=== PATIENT | male | born 1965 | race Caucasian/White ===

== ENCOUNTER 2016-11-21 20:03 | Emergency (ER) | payer OTHER ==
[~2016-11-21] VITALS: Ht 167.6 cm; Wt 105.0 kg
[~2016-11-21 20:03] MED LIST: BENADRYL50 MG PO; DAILY VITE1 EAC1 PO; DOXYCYCLINE HY100 MG PO; EPINEPHRIN0.15 MG/0. IM; FOLIC ACID1 MG PO; LISINOPRIL2.5 MG PO; ONE DAILY1 EAC3 PO; PRILOSEC OTC20 MG PO; Thiamine,Vitamin B1 PO
[2016-11-22 00:42] LABS: EOSINOPHIL (%) 2.3 % (0-5); EOSINOPHIL COUNT 0.1 K/uL (0-0.3); HEMATOCRIT 35.9 % (38.0-50.0); IMMATURE GRANULOCYTE (%) 0.2 % (0.0-0.7); IMMATURE GRANULOCYTE COUNT 0.1 K/uL; LYMPHOCYTE COUNT 1.9 K/uL (1.0-2.8); MCH 36.4 PG (29.0-34.0); MCHC 35.9 G/DL (30.0-36.0); MCV 101.4 FL (86-99); MONOCYTE (%) 9.3 % (3-12); MONOCYTE COUNT 0.5 K/uL (0-0.8); NEUTROPHIL (%) 47.8 % (45-76); NEUTROPHIL COUNT 2.3 K/uL (1.8-6.4); PLATELET COUNT 78 K/uL (156-360); RBC DIS.WIDTH-CV 13.6 % (11.8-14.6); RBC DIS.WIDTH-SD 49.2 % (39-53); RED BLOOD COUNT 3.54 M/uL (4.00-5.50); WHITE BLOOD COUNT 4.8 K/uL (4.1-10.2)
[2016-11-22 00:50] LABS: CHLORIDE 97 mEq/L (99-109); SODIUM 129 mEq/L (136-147)
[2016-11-22 00:52] LABS: GLUCOSE 105 mg/dL (70-99)
[2016-11-22 00:53] LABS: ANION GAP 13 MEQ/L (2-14)
[2016-11-22 00:54] LABS: TOTAL BILIRUBIN 3.3 mg/dL (0.0-1.0)
[2016-11-22 00:55] LABS: SERUM ETHYL ALCOHOL 298 mg/dL
[2016-11-22 00:56] LABS: ALKALINE PHOSPHATASE 95 IU/L (3-129); GFR ESTIMATE (CALCULATED) > 59 mL/min/
[2016-11-22 00:57] LABS: UREA NITROGEN (BUN) 7 mg/dL (9-23)
[2016-11-22] MEDS ORDERED: KEFLEX500 MG PO (05:57)
[2016-11-22 07:14] VITALS: BP 102/57
== END 2016-11-22 07:30 | disposition home or self-care (01) ==
LOC: EME 20:03
PROVIDERS: Emergency Medicine
DX: S01.01XA Laceration without foreign body of scalp, initial encounter (principal); S00.81XA Abrasion of other part of head, initial encounter; W01.10XA Fall on same level from slipping, tripping and stumbling with subsequent striking against unspecified object, initial encounter; Y92.513 Shop (commercial) as the place of occurrence of the external cause; F10.129 Alcohol abuse with intoxication, unspecified; Y90.8 Blood alcohol level of 240 mg/100 ml or more; I10 Essential (primary) hypertension; Z91.5 Personal history of self-harm; Z59.0 Homelessness; Z91.018 Allergy to other foods; Z23 Encounter for immunization
CPT/HCPCS: 70450; 72125; 80053; 85025; 99281; 99284; G0480; J7030

== ENCOUNTER 2016-12-15 03:04 | Inpatient (IN) | payer OTHER ==
[~2016-12-15] VITALS: Ht 167.6 cm; Wt 98.6 kg
[~2016-12-15 03:04] MED LIST changes: +KEFLEX500 MG PO
[2016-12-15 03:28] LABS: HEMATOCRIT 38.6 % (38.0-50.0); MCH 35.9 PG (29.0-34.0); MCHC 34.5 G/DL (30.0-36.0); MCV 104.3 FL (86-99); MEAN PLAT.VOLUME 9.8 uM^3 (9.0-12.4); PLATELET COUNT 90 K/uL (156-360); RBC DIS.WIDTH-CV 14.3 % (11.8-14.6); RBC DIS.WIDTH-SD 53.1 % (39-53); WHITE BLOOD COUNT 7.6 K/uL (4.1-10.2)
[2016-12-15 03:38] LABS: CHLORIDE 105 mEq/L (99-109); POTASSIUM 4.3 mEq/L (3.7-5.4); SODIUM 138 mEq/L (136-147)
[2016-12-15 03:40] LABS: GLUCOSE 128 mg/dL (70-99)
[2016-12-15 03:41] LABS: ANION GAP 9 MEQ/L (2-14)
[2016-12-15 03:42] LABS: TOTAL BILIRUBIN 3.7 mg/dL (0.0-1.0)
[2016-12-15 03:43] LABS: ALKALINE PHOSPHATASE 134 IU/L (3-129)
[2016-12-15 03:44] LABS: GFR ESTIMATE (CALCULATED) > 59 mL/min/
[2016-12-15 03:45] LABS: UREA NITROGEN (BUN) 14 mg/dL (9-23)
[2016-12-15 03:48] LABS: LIPASE 69 U/L (1.0-51.0)
[2016-12-15 03:59] LABS: TROP-I INTERPRETATION NEGATIVE; TROPONIN-I 0.02 ng/mL (0.0-0.30)
[2016-12-15 05:46] LABS: TROP-I INTERPRETATION NEGATIVE; TROPONIN-I 0.02 ng/mL (0.0-0.30)
[2016-12-15 06:10] LABS: ADD MIUA? YES; BILIRUBIN NEGATIVE; BLOOD NEGATIVE; COLOR AMBER ((YELLOW)); GLUCOSE (STRIP) NEGATIVE; KETONES NEGATIVE; LEUKOCYTES NEGATIVE; NITRITE NEGATIVE; PROTEIN (STRIP) NEGATIVE; SPECIFIC GRAVITY 1.039 (1.000-1.030)
[2016-12-15 06:15] LABS: BACTERIA RARE /HPF; EPITHELIAL CELLS NONE SEEN /HPF; MUCUS TRACE /LPF; RED BLOOD CELLS 0-5 /HPF (0-5); UCUL ADDED? NO; WHITE BLOOD CELLS 0-5 /HPF (0-5)
[2016-12-15 08:17] LABS: INTER. NORMALIZED RATIO 2.1; PROTHROMBIN TIME 22.3 (9.2-11.2); PTT 27.3 (25-32)
[2016-12-15] MEDS ORDERED: PREDNISONE20 MG PO (10:09)
[2016-12-15] MEDS ORDERED: PROVENTIL HFA6.7 GM IH (10:09)
[2016-12-15] MEDS ORDERED: ZITHROMAX Z-PA250 MG PO (10:09)
[2016-12-15 20:04] VITALS: BP 154/97
[2016-12-16] VITALS: BP 132/60; BP 150/76
[2016-12-16 06:42] LABS: HEMATOCRIT 35.7 % (38.0-50.0); MCH 36.8 PG (29.0-34.0); PLATELET COUNT 70 K/uL (156-360); RBC DIS.WIDTH-CV 14.7 % (11.8-14.6); RBC DIS.WIDTH-SD 56.4 % (39-53)
[2016-12-16 06:50] LABS: WHITE BLOOD COUNT 2.4 K/uL (4.1-10.2)
[2016-12-16 07:02] LABS: ALKALINE PHOSPHATASE 67 IU/L (3-129); ANION GAP 7 MEQ/L (2-14); CHLORIDE 105 MEQ/L (99-109); DIRECT BILIRUBIN 1.3 mg/dL (0.0-0.3); GFR ESTIMATE (CALCULATED) > 59 mL/min/; GLUCOSE 129 mg/dL (70-99); MAGNESIUM 1.5 mg/dl (1.3-2.7); SAMPLE HEMOLYSIS CHECK 0; SAMPLE ICTERIC CHECK 1; SAMPLE LIPEMIA CHECK 0; SODIUM 136 MEQ/L (136-147); TOTAL BILIRUBIN 4.4 MG/DL (0.0-1.0); UREA NITROGEN (BUN) 14 mg/dL (9-23)
[2016-12-16 07:48] LABS: INTER. NORMALIZED RATIO 2.3; PROTHROMBIN TIME 24.1 (9.2-11.2)
[2016-12-16 07:54] VITALS: BP 164/92
[2016-12-16] MEDS ORDERED: THIAMINE HCL100 MG PO (09:41)
[2016-12-16] MEDS ORDERED: CIPRO500 MG PO (09:41)
[2016-12-16] MEDS ORDERED: KRISTALOSE20 GM PO (09:41)
[2016-12-16] MEDS ORDERED: FLAGYL500 MG PO (09:41)
[2016-12-16] MEDS ORDERED: ULTRAM50 MG PO (09:41)
[2016-12-16] MEDS ORDERED: FOLIC ACID1 MG PO (09:41)
[2016-12-16] MEDS ORDERED: OMEPRAZOLE40 M1 PO (09:49)
== END 2016-12-16 15:23 | disposition left against medical advice (07) | DRG 445 ==
LOC: EME 03:04 → EDOF 13:37 → 5EAST 19:17
PROVIDERS: Emergency Medicine; Internal Medicine; Surgery
DX: K80.20 Calculus of gallbladder without cholecystitis without obstruction (principal); K29.80 Duodenitis without bleeding; K27.9 Peptic ulcer, site unspecified, unspecified as acute or chronic, without hemorrhage or perforation; D69.59 Other secondary thrombocytopenia; K86.2 Cyst of pancreas; D68.8 Other specified coagulation defects; K76.6 Portal hypertension; F10.20 Alcohol dependence, uncomplicated; K70.30 Alcoholic cirrhosis of liver without ascites; K70.40 Alcoholic hepatic failure without coma; I10 Essential (primary) hypertension; F32.9 Major depressive disorder, single episode, unspecified; Z91.5 Personal history of self-harm; Z59.0 Homelessness; Z87.891 Personal history of nicotine dependence
CPT/HCPCS: 71020; 74177; 74181; 76705; 78227; 80053; 81003; 82140; 82248; 83690; 83735; 84100; 84484; 85027; 85610; 85730; 87040; 93005; 99281; 99285; A9537; C9113; J0295; J1650; J2060; J2805; J3411; J3430; J7030; J7042; J7050

== ENCOUNTER 2017-02-21 15:06 | Inpatient (IN) | payer OTHER ==
[~2017-02-21] VITALS: Ht 167.6 cm; Wt 104.4 kg
[~2017-02-21 15:06] MED LIST changes: +CIPRO500 MG PO; +FLAGYL500 MG PO; +KRISTALOSE20 GM PO; +OMEPRAZOLE40 M1 PO; +PREDNISONE20 MG PO; +PROVENTIL HFA6.7 GM IH; +THIAMINE HCL100 MG PO; +ULTRAM50 MG PO; +ZITHROMAX Z-PA250 MG PO
[2017-02-21 16:23] LABS: EOSINOPHIL (%) 0 % (0-5); HEMATOCRIT 38.7 % (38.0-50.0); IMMATURE GRANULOCYTE (%) 0.8 % (0.0-0.7); INSTRUMENT ABS NEUTROPHIL CT 3.2 K/uL; LYMPHOCYTE COUNT 0.2 K/uL (1.0-2.8); MCH 36.1 PG (29.0-34.0); MCHC 34.4 G/DL (30.0-36.0); MCV 105.2 FL (86-99); MONOCYTE COUNT 0.2 K/uL (0-0.8); NEUTROPHIL (%) 88.9 % (45-76); NEUTROPHIL COUNT 3.2 K/uL (1.8-6.4); NRBC (%) 0.8 /100 WBC (0-0); RBC DIS.WIDTH-CV 14.3 % (11.8-14.6); RBC DIS.WIDTH-SD 55.5 % (39-53); RED BLOOD COUNT 3.68 M/uL (4.00-5.50); WHITE BLOOD COUNT 3.6 K/uL (4.1-10.2)
[2017-02-21 16:38] LABS: CHLORIDE 102 mEq/L (99-109); POTASSIUM 3.7 mEq/L (3.7-5.4); SODIUM 135 mEq/L (136-147)
[2017-02-21 16:39] LABS: GLUCOSE 110 mg/dL (70-99)
[2017-02-21 16:41] LABS: ANION GAP 13 MEQ/L (2-14)
[2017-02-21 16:43] LABS: GFR ESTIMATE (CALCULATED) > 59 mL/min/
[2017-02-21 16:44] LABS: UREA NITROGEN (BUN) 16 mg/dL (9-23)
[2017-02-21 16:47] LABS: TROP-I INTERPRETATION NEGATIVE; TROPONIN-I 0.06 ng/mL (0.0-0.30)
[2017-02-21 17:04] LABS: LIPASE 56 U/L (1.0-51.0)
[2017-02-21 17:12] LABS: HEMATOLOGY COMMENT 1 SN; IMM.PLATELET FRACTION 2.7 (1-7); PLAT.SUFFICIENCY DECREASED; PLATELET COUNT 43 K/uL (156-360)
[2017-02-21 19:09] LABS: INTER. NORMALIZED RATIO 2.6; PROTHROMBIN TIME 26.8 (9.2-11.2); PTT 27.5 (25-32)
[2017-02-21 19:15] LABS: TOTAL BILIRUBIN 5.6 mg/dL (0.0-1.0)
[2017-02-21 19:16] LABS: ALKALINE PHOSPHATASE 74 IU/L (3-129)
[2017-02-21 19:19] LABS: DIRECT BILIRUBIN 1.7 mg/dL (0.0-0.3)
[2017-02-21 21:11] VITALS: BP 121/77
[2017-02-21 23:16] LABS: TROP-I INTERPRETATION NEGATIVE
[2017-02-21 23:52] VITALS: BP 91/49
[2017-02-22 03:43] VITALS: BP 113/56
[2017-02-22 06:24] LABS: EOSINOPHIL (%) 0 % (0-5); HEMATOCRIT 36.3 % (38.0-50.0); IMMATURE GRANULOCYTE (%) 1.2 % (0.0-0.7); IMMATURE GRANULOCYTE COUNT 0.1 K/uL; INSTRUMENT ABS NEUTROPHIL CT 6.5 K/uL; LYMPHOCYTE COUNT 0.4 K/uL (1.0-2.8); MCH 36.4 PG (29.0-34.0); MCHC 33.9 G/DL (30.0-36.0); MCV 107.4 FL (86-99); MONOCYTE COUNT 0.5 K/uL (0-0.8); NEUTROPHIL (%) 86.2 % (45-76); NEUTROPHIL COUNT 6.5 K/uL (1.8-6.4); RBC DIS.WIDTH-CV 14.6 % (11.8-14.6); RBC DIS.WIDTH-SD 57.6 % (39-53); RED BLOOD COUNT 3.38 M/uL (4.00-5.50); TROP-I INTERPRETATION NEGATIVE; TROPONIN-I 0.08 ng/mL (0.0-0.30)
[2017-02-22 06:44] LABS: WHITE BLOOD COUNT 7.5 K/uL (4.1-10.2)
[2017-02-22 06:45] LABS: ALKALINE PHOSPHATASE 44 IU/L (3-129); ANION GAP 8 MEQ/L (2-14); CHLORIDE 104 MEQ/L (99-109); GFR ESTIMATE (CALCULATED) > 59 mL/min/; GLUCOSE 87 mg/dL (70-99); POTASSIUM 3.3 MEQ/L (3.7-5.4); SAMPLE HEMOLYSIS CHECK 0; SAMPLE ICTERIC CHECK 1; SAMPLE LIPEMIA CHECK 0; SODIUM 136 MEQ/L (136-147); TOTAL BILIRUBIN 4.8 MG/DL (0.0-1.0); UREA NITROGEN (BUN) 16 mg/dL (9-23)
[2017-02-22 07:56] VITALS: BP 115/67
[2017-02-22 07:59] LABS: INTERNAL CONTROL VALID? YES
[2017-02-22 08:26] LABS: IMM.PLATELET FRACTION 2.4 (1-7); MEAN PLAT.VOLUME 9.5 uM^3 (9.0-12.4); PLATELET COUNT 34 K/uL (156-360)
[2017-02-22 10:08] LABS: C DIFF TOXIN NEGATIVE (NEGATIVE); PROBE CHECK PASS; SPECIMEN PROCESSING CONTROL PASS
[2017-02-22 10:55] VITALS: BP 111/63
[2017-02-22 16:11] VITALS: BP 107/57
[2017-02-22 19:00] VITALS: BP 110/76
[2017-02-23 04:01] VITALS: BP 109/63
[2017-02-23 08:23] VITALS: BP 127/70
[2017-02-23 08:48] LABS: ANION GAP 6 MEQ/L (2-14); CHLORIDE 108 MEQ/L (99-109); GFR ESTIMATE (CALCULATED) > 59 mL/min/; GLUCOSE 83 mg/dL (70-99); POTASSIUM 3.4 MEQ/L (3.7-5.4); SAMPLE HEMOLYSIS CHECK 0; SAMPLE ICTERIC CHECK 1; SAMPLE LIPEMIA CHECK 0; SODIUM 137 MEQ/L (136-147); UREA NITROGEN (BUN) 18 mg/dL (9-23)
[2017-02-23 11:51] VITALS: BP 120/66
[2017-02-23 15:46] VITALS: BP 124/72
[2017-02-23 18:26] VITALS: BP 135/85
[2017-02-23 18:49] LABS: METH RESISTANT S AUREUS PCR POSITIVE (NEGATIVE)
[2017-02-23 18:57] LABS: PROBE CHECK PASS
[2017-02-23 20:16] VITALS: BP 138/80
[2017-02-24] VITALS: BP 143/90
[2017-02-24 04:03] VITALS: BP 149/78
[2017-02-24 08:37] VITALS: BP 130/82
[2017-02-24 12:46] VITALS: BP 148/85
[2017-02-24 16:21] VITALS: BP 113/74
[2017-02-24 19:33] VITALS: BP 150/86
[2017-02-25 03:52] VITALS: BP 157/88
[2017-02-25 08:27] VITALS: BP 161/83
[2017-02-25 11:42] VITALS: BP 161/84
[2017-02-25 16:41] VITALS: BP 171/92
[2017-02-25 20:39] VITALS: BP 177/84
[2017-02-26 00:10] VITALS: BP 133/77
[2017-02-26 04:05] VITALS: BP 169/81
[2017-02-26 08:38] LABS: HEMATOCRIT 44.3 % (38.0-50.0); MCH 36.6 PG (29.0-34.0); MCHC 34.1 G/DL (30.0-36.0); MCV 107.3 FL (86-99); MEAN PLAT.VOLUME 10.2 uM^3 (9.0-12.4); RBC DIS.WIDTH-CV 14.4 % (11.8-14.6); RBC DIS.WIDTH-SD 55.9 % (39-53)
[2017-02-26 08:45] VITALS: BP 167/94
[2017-02-26 08:48] LABS: PLATELET COUNT 70 K/uL (156-360); RED BLOOD COUNT 4.13 M/uL (4.00-5.50); WHITE BLOOD COUNT 4.9 K/uL (4.1-10.2)
[2017-02-26 09:03] LABS: ANION GAP 8 MEQ/L (2-14); CHLORIDE 101 MEQ/L (99-109); GFR ESTIMATE (CALCULATED) > 59 mL/min/; GLUCOSE 84 mg/dL (70-99); SAMPLE HEMOLYSIS CHECK 1; SAMPLE ICTERIC CHECK 1; SAMPLE LIPEMIA CHECK 0; SODIUM 135 MEQ/L (136-147); UREA NITROGEN (BUN) 12 mg/dL (9-23)
[2017-02-26 12:00] VITALS: BP 165/85
[2017-02-26] MEDS ORDERED: TRIAMCINOLONE A15 GM TP (12:23)
[2017-02-26] MEDS ORDERED: PREDNISONE10 MG PO (12:24)
== END 2017-02-26 14:22 | disposition home or self-care (01) | DRG 194 ==
LOC: EME 15:06 → EDOF 17:58 → 5WEST 17:58 → EDOF 17:58 → 5WEST 20:54 → 5SOUTH 02-22 10:33 → 5WEST 02-22 10:33 → 5SOUTH 02-23 17:55
PROVIDERS: Emergency Medicine; Hospitalist; Internal Medicine; Nurse Practitioner Adult Health; Nurse Practitioner Family
DX: J18.9 Pneumonia, unspecified organism (principal); F10.10 Alcohol abuse, uncomplicated; M79.89 Other specified soft tissue disorders; K76.6 Portal hypertension; K70.30 Alcoholic cirrhosis of liver without ascites; Z59.0 Homelessness; I10 Essential (primary) hypertension; Z86.19 Personal history of other infectious and parasitic diseases; Z87.891 Personal history of nicotine dependence; Z80.1 Family history of malignant neoplasm of trachea, bronchus and lung; E66.9 Obesity, unspecified; Z68.37 Body mass index [BMI] 37.0-37.9, adult; Z22.322 Carrier or suspected carrier of Methicillin resistant Staphylococcus aureus; L71.9 Rosacea, unspecified
CPT/HCPCS: 71010; 71020; 76882; 80048; 80053; 80076; 82140; 83690; 84484; 85025; 85027; 85610; 85730; 87040; 87070; 87177; 87205; 87449; 87493; 87641; 93005; 93971; 94640; 94760; 94799; 99202; 99281; 99285; G0378; J0456; J0696; J2060; J2543; J3411; J3475; J7030; J7050; J7512; S0028

== ENCOUNTER 2017-02-26 22:46 | Observation (INO) | payer OTHER ==
[~2017-02-26] VITALS: Ht 167.6 cm; Wt 105.3 kg
[~2017-02-26 22:46] MED LIST changes: +PREDNISONE10 MG PO; +TRIAMCINOLONE A15 GM TP
[2017-02-26 23:31] LABS: HEMATOCRIT 41.1 % (38.0-50.0); MCH 36.4 PG (29.0-34.0); MCHC 34.1 G/DL (30.0-36.0); MCV 106.8 FL (86-99); MEAN PLAT.VOLUME 10.4 uM^3 (9.0-12.4); PLATELET COUNT 73 K/uL (156-360); RBC DIS.WIDTH-CV 14.2 % (11.8-14.6); RBC DIS.WIDTH-SD 55.7 % (39-53); RED BLOOD COUNT 3.85 M/uL (4.00-5.50); WHITE BLOOD COUNT 4.7 K/uL (4.1-10.2)
[2017-02-26 23:49] LABS: CHLORIDE 102 mEq/L (99-109); POTASSIUM 3.7 mEq/L (3.7-5.4); SODIUM 134 mEq/L (136-147)
[2017-02-26 23:50] LABS: GLUCOSE 80 mg/dL (70-99)
[2017-02-26 23:52] LABS: ANION GAP 11 MEQ/L (2-14)
[2017-02-26 23:54] LABS: GFR ESTIMATE (CALCULATED) > 59 mL/min/
[2017-02-26 23:55] LABS: TROP-I INTERPRETATION NEGATIVE; TROPONIN-I < 0.01 ng/mL (0.0-0.30); UREA NITROGEN (BUN) 9 mg/dL (9-23)
[2017-02-27 03:33] LABS: ALKALINE PHOSPHATASE 126 IU/L (3-129); DIRECT BILIRUBIN 1.5 mg/dL (0.0-0.3); TOTAL BILIRUBIN 3.4 MG/DL (0.0-1.0)
[2017-02-27 03:34] LABS: LIPASE 90 U/L (1.0-51.0)
[2017-02-27 05:41] LABS: INTER. NORMALIZED RATIO 2.4; PROTHROMBIN TIME 25.1 (9.2-11.2); PTT 29.5 (25-32)
[2017-02-27 07:45] VITALS: BP 169/91
[2017-02-27 11:37] VITALS: BP 158/75
[2017-02-27 17:11] VITALS: BP 167/96
[2017-02-27 21:00] VITALS: BP 148/77
[2017-02-28 00:44] VITALS: BP 155/90
[2017-02-28 03:50] VITALS: BP 164/80
[2017-02-28 05:40] LABS: ALKALINE PHOSPHATASE 68 IU/L (3-129); DIRECT BILIRUBIN 1.2 mg/dL (0.0-0.3); TOTAL BILIRUBIN 3.6 MG/DL (0.0-1.0)
[2017-02-28 08:10] VITALS: BP 174/92
[2017-02-28 09:50] LABS: AHBS INDEX 0; HEPATITIS B SURFACE ANTIBODY Nonreactive
[2017-02-28 09:51] LABS: ANTI-HEPATITIS B CORE (IGM) Nonreactive; HBC IgM INDEX 0.13
[2017-02-28 09:54] LABS: HPCA INDEX 5.45
[2017-02-28 12:21] VITALS: BP 173/68
[2017-02-28] MEDS ORDERED: Thiamine,Vitamin B1 PO (12:43)
[2017-02-28] MEDS ORDERED: TRIAMCINOLONE A15 G2 TP (12:43)
[2017-02-28] MEDS ORDERED: FOLIC ACID1 MG PO (12:43)
[2017-02-28] MEDS ORDERED: AMLODIPINE BESYL5 MG PO (12:43)
[2017-02-28 14:56] VITALS: BP 154/85
== END 2017-02-28 14:08 | disposition home or self-care (01) ==
LOC: EME 22:46 → 5WEST 02-27 06:06 → EDOF 02-27 06:06 → 5WEST 02-27 07:36
PROVIDERS: Internal Medicine Gastroenterology; Internal Medicine Hematology & Oncology; Surgery
DX: K80.20 Calculus of gallbladder without cholecystitis without obstruction (principal); K70.30 Alcoholic cirrhosis of liver without ascites; R16.0 Hepatomegaly, not elsewhere classified; R10.13 Epigastric pain; D69.6 Thrombocytopenia, unspecified; Z59.0 Homelessness; F10.10 Alcohol abuse, uncomplicated; R79.89 Other specified abnormal findings of blood chemistry
CPT/HCPCS: 71020; 74177; 76705; 80048 91; 80076; 82105 90; 83690; 84484; 85027; 85610; 85730; 86705; 86706; 86803; 93005; 99281; 99285; G0378; J7030

== ENCOUNTER 2017-03-09 16:49 | Emergency (ER) | payer OTHER ==
[~2017-03-09] VITALS: Ht 167.6 cm; Wt 101.0 kg
[~2017-03-09 16:49] MED LIST changes: +AMLODIPINE BESYL5 MG PO; +TRIAMCINOLONE A15 G2 TP
[2017-03-09 17:36] LABS: MCH 36.1 PG (29.0-34.0); MCHC 34.6 G/DL (30.0-36.0); MCV 104.2 FL (86-99); PLATELET COUNT 76 K/uL (156-360); RBC DIS.WIDTH-CV 13.2 % (11.8-14.6); RBC DIS.WIDTH-SD 50.8 % (39-53); RED BLOOD COUNT 3.55 M/uL (4.00-5.50)
[2017-03-09 17:54] LABS: CHLORIDE 105 mEq/L (99-109); SODIUM 138 mEq/L (136-147)
[2017-03-09 17:55] LABS: ADD MIUA? YES; BILIRUBIN NEGATIVE; BLOOD SMALL; COLOR STRAW ((YELLOW)); GLUCOSE (STRIP) NEGATIVE; KETONES NEGATIVE; LEUKOCYTES NEGATIVE; NITRITE NEGATIVE; PROTEIN (STRIP) NEGATIVE; SPECIFIC GRAVITY 1.004 (1.000-1.030); UROBILINOGEN 0.2 MG/DL (0.2-1.0)
[2017-03-09 17:57] LABS: GLUCOSE 91 mg/dL (70-99)
[2017-03-09 17:58] LABS: BACTERIA RARE /HPF; EPITHELIAL CELLS RARE /HPF; MUCUS NONE SEEN /LPF; RED BLOOD CELLS 0-5 /HPF (0-5); UCUL ADDED? NO; WHITE BLOOD CELLS 0-5 /HPF (0-5)
[2017-03-09 17:58] LABS: ANION GAP 12 MEQ/L (2-14); TOTAL BILIRUBIN 3.7 mg/dL (0.0-1.0)
[2017-03-09 18:00] LABS: ALKALINE PHOSPHATASE 104 IU/L (3-129); GFR ESTIMATE (CALCULATED) > 59 mL/min/
[2017-03-09 18:01] LABS: UREA NITROGEN (BUN) 7 mg/dL (9-23)
[2017-03-09 18:02] LABS: DIRECT BILIRUBIN 1.2 mg/dL (0.0-0.3)
[2017-03-09 18:04] LABS: LIPASE 65 U/L (1.0-51.0)
[2017-03-09 20:25] VITALS: BP 147/90
== END 2017-03-09 20:26 | disposition home or self-care (01) ==
LOC: EME 16:49
PROVIDERS: Emergency Medicine
DX: K80.20 Calculus of gallbladder without cholecystitis without obstruction (principal); K74.60 Unspecified cirrhosis of liver; I10 Essential (primary) hypertension
CPT/HCPCS: 71020; 71275; 74176; 80048; 80076; 81003; 83605; 83690; 85027; 85379; 87040; 99281; 99284; J2270; J2405; J7030

== ENCOUNTER 2017-03-14 02:44 | Emergency (ER) | payer OTHER ==
[~2017-03-14] VITALS: Ht 167.6 cm; Wt 105.9 kg
[2017-03-14 06:19] VITALS: BP 94/45
== END 2017-03-14 04:30 | disposition home or self-care (01) ==
LOC: EME 02:44
PROC: 3E0234Z Introduction of Serum, Toxoid and Vaccine into Muscle, Percutaneous Approach (ICD-10-PCS; principal; 2017-03-14)
DX: S00.01XA Abrasion of scalp, initial encounter (principal); S09.90XA Unspecified injury of head, initial encounter; F10.129 Alcohol abuse with intoxication, unspecified; Y00.XXXA Assault by blunt object, initial encounter; W18.30XA Fall on same level, unspecified, initial encounter; Y07.9 Unspecified perpetrator of maltreatment and neglect; Z23 Encounter for immunization; K74.60 Unspecified cirrhosis of liver; I10 Essential (primary) hypertension; Z59.0 Homelessness
CPT/HCPCS: 70450; 99281; 99284

== ENCOUNTER 2017-03-15 23:33 | Emergency (ER) | payer OTHER ==
[~2017-03-15] VITALS: Ht 167.6 cm; Wt 99.1 kg
[2017-03-16 00:31] LABS: MCH 37.2 PG (29.0-34.0); MCHC 35.4 G/DL (30.0-36.0); MCV 105.1 FL (86-99); RBC DIS.WIDTH-CV 14.2 % (11.8-14.6); RBC DIS.WIDTH-SD 54.6 % (39-53); RED BLOOD COUNT 3.52 M/uL (4.00-5.50); WHITE BLOOD COUNT 3.1 K/uL (4.1-10.2)
[2017-03-16 00:40] LABS: CHLORIDE 106 mEq/L (99-109); POTASSIUM 3.5 mEq/L (3.7-5.4); SODIUM 142 mEq/L (136-147)
[2017-03-16 00:42] LABS: GLUCOSE 140 mg/dL (70-99)
[2017-03-16 00:43] LABS: ANION GAP 12 MEQ/L (2-14)
[2017-03-16 00:45] LABS: SERUM ETHYL ALCOHOL 374 mg/dL
[2017-03-16 00:46] LABS: GFR ESTIMATE (CALCULATED) > 59 mL/min/
[2017-03-16 00:47] LABS: UREA NITROGEN (BUN) 6 mg/dL (9-23)
[2017-03-16 01:22] LABS: IMM.PLATELET FRACTION 1.8 (1-7); MEAN PLAT.VOLUME 9.7 uM^3 (9.0-12.4); PLATELET COUNT 49 K/uL (156-360)
[2017-03-16 01:23] LABS: PLAT.SUFFICIENCY VERY DECREASED
[2017-03-16 12:05] VITALS: BP 125/81
== END 2017-03-16 12:10 | disposition home or self-care (01) ==
LOC: EME → EDBD 23:33 → EME 23:33
PROVIDERS: Emergency Medicine
DX: F10.229 Alcohol dependence with intoxication, unspecified (principal); Y90.8 Blood alcohol level of 240 mg/100 ml or more; R45.851 Suicidal ideations; F32.9 Major depressive disorder, single episode, unspecified; I10 Essential (primary) hypertension; F41.9 Anxiety disorder, unspecified; K70.30 Alcoholic cirrhosis of liver without ascites; K70.40 Alcoholic hepatic failure without coma; Z86.14 Personal history of Methicillin resistant Staphylococcus aureus infection; Z59.0 Homelessness
CPT/HCPCS: 80048; 85027; 90839; 99281; 99285; G0480

== ENCOUNTER 2017-03-16 22:58 | Inpatient (IN) | payer OTHER ==
[~2017-03-16] VITALS: Ht 167.6 cm; Wt 96.9 kg
[2017-03-16 23:41] LABS: HEMATOCRIT 36.5 % (38.0-50.0); MCH 36.3 PG (29.0-34.0); MCHC 34.5 G/DL (30.0-36.0); MCV 105.2 FL (86-99); RBC DIS.WIDTH-CV 14.2 % (11.8-14.6); RBC DIS.WIDTH-SD 54.4 % (39-53); RED BLOOD COUNT 3.47 M/uL (4.00-5.50); WHITE BLOOD COUNT 3.3 K/uL (4.1-10.2)
[2017-03-16 23:57] LABS: CHLORIDE 107 mEq/L (99-109); POTASSIUM 3.6 mEq/L (3.7-5.4); SODIUM 140 mEq/L (136-147)
[2017-03-17] LABS: ANION GAP 9 MEQ/L (2-14); GLUCOSE 102 mg/dL (70-99)
[2017-03-17 00:01] LABS: TOTAL BILIRUBIN 2.8 mg/dL (0.0-1.0)
[2017-03-17 00:02] LABS: SERUM ETHYL ALCOHOL 362 mg/dL
[2017-03-17 00:03] LABS: ALKALINE PHOSPHATASE 138 IU/L (3-129); GFR ESTIMATE (CALCULATED) > 59 mL/min/
[2017-03-17 00:04] LABS: UREA NITROGEN (BUN) 7 mg/dL (9-23)
[2017-03-17 00:41] LABS: MEAN PLAT.VOLUME 9.7 uM^3 (9.0-12.4); PLAT.SUFFICIENCY VERY DECREASED; PLATELET COUNT 40 K/uL (156-360)
[2017-03-17 02:28] LABS: ADD MIUA? NO; BILIRUBIN NEGATIVE; BLOOD NEGATIVE; COLOR YELLOW ((YELLOW)); GLUCOSE (STRIP) NEGATIVE; KETONES NEGATIVE; LEUKOCYTES NEGATIVE; NITRITE NEGATIVE; PROTEIN (STRIP) NEGATIVE; SPECIFIC GRAVITY 1.004 (1.000-1.030); UCUL ADDED? NO
[2017-03-17 02:50] LABS: AMPHETAMINE NEGATIVE (500 ng/mL); BARBITURATES NEGATIVE (200 ng/mL); BENZODIAZEPINES NEGATIVE (150 ng/mL); COCAINE NEGATIVE (150 ng/mL); INTERNAL CONTROLS VALID? YES; METHADONE NEGATIVE (200 ng/mL); METHAMPHETAMINE NEGATIVE (500 ng/mL); OPIATES (MORPHINE) NEGATIVE (100 ng/mL); OXYCODONE NEGATIVE (100 ng/mL); PHENCYCLIDINE NEGATIVE (25 ng/mL); PROPOXYPHENE NEGATIVE (300 ng/mL); THC CANNABINOIDS NEGATIVE (50 ng/mL); TRICYCLIC ANTIDEPRESSANTS NEGATIVE (300 ng/mL)
[2017-03-17 14:52] VITALS: BP 164/84
[2017-03-17 15:36] VITALS: BP 164/80
[2017-03-17 18:35] VITALS: BP 145/82
[2017-03-18 07:46] VITALS: BP 165/90
[2017-03-18 15:22] VITALS: BP 161/99
[2017-03-19 07:29] VITALS: BP 148/72
[2017-03-19 15:35] VITALS: BP 169/91
[2017-03-19 21:19] VITALS: BP 141/84
[2017-03-20 07:17] VITALS: BP 140/88
[2017-03-20 15:27] VITALS: BP 158/94
[2017-03-21 07:42] VITALS: BP 140/76
[2017-03-21 15:15] VITALS: BP 138/78
[2017-03-22 07:50] VITALS: BP 149/77
[2017-03-22 15:35] VITALS: BP 150/57
[2017-03-23 08:27] VITALS: BP 151/79
[2017-03-23] MEDS ORDERED: ESCITALOPRAM OX20 MG PO (10:54)
[2017-03-23] MEDS ORDERED: HYDROCHLOROTHIA25 MG PO (10:54)
== END 2017-03-23 12:44 | DRG 881 ==
LOC: EME 22:58 → EDOF 03-17 12:40 → 1WEST 03-17 12:40
PROVIDERS: Emergency Medicine
DX: F43.21 Adjustment disorder with depressed mood (principal); F60.7 Dependent personality disorder; F41.1 Generalized anxiety disorder; F10.129 Alcohol abuse with intoxication, unspecified; R16.0 Hepatomegaly, not elsewhere classified; D69.6 Thrombocytopenia, unspecified; R45.851 Suicidal ideations; Y90.9 Presence of alcohol in blood, level not specified; R63.4 Abnormal weight loss; K74.60 Unspecified cirrhosis of liver; Z59.0 Homelessness; I10 Essential (primary) hypertension; K80.20 Calculus of gallbladder without cholecystitis without obstruction
CPT/HCPCS: 80053; 81003; 85027; 90837; 90839; 97150 GO; 97166 GO; 99281; 99285; G0480

== ENCOUNTER 2017-04-06 22:04 | Inpatient (IN) | payer OTHER ==
[~2017-04-06] VITALS: Ht 167.6 cm; Wt 103.1 kg
[~2017-04-06 22:04] MED LIST changes: +ESCITALOPRAM OX20 MG PO; +HYDROCHLOROTHIA25 MG PO
[2017-04-06 22:50] LABS: HEMATOCRIT 36.6 % (38.0-50.0); MCH 36.1 PG (29.0-34.0); MCV 103.1 FL (86-99); RBC DIS.WIDTH-CV 13.7 % (11.8-14.6); RBC DIS.WIDTH-SD 52.4 % (39-53); RED BLOOD COUNT 3.55 M/uL (4.00-5.50); WHITE BLOOD COUNT 4.1 K/uL (4.1-10.2)
[2017-04-06 22:57] LABS: CHLORIDE 95 mEq/L (99-109); POTASSIUM 3.6 mEq/L (3.7-5.4); SODIUM 128 mEq/L (136-147)
[2017-04-06 22:59] LABS: GLUCOSE 100 mg/dL (70-99)
[2017-04-06 23:00] LABS: ANION GAP 10 MEQ/L (2-14)
[2017-04-06 23:02] LABS: SERUM ETHYL ALCOHOL 198 mg/dL
[2017-04-06 23:03] LABS: GFR ESTIMATE (CALCULATED) > 59 mL/min/
[2017-04-06 23:04] LABS: UREA NITROGEN (BUN) 11 mg/dL (9-23)
[2017-04-06 23:49] LABS: TOTAL BILIRUBIN 2.8 mg/dL (0.0-1.0)
[2017-04-06 23:50] LABS: ALKALINE PHOSPHATASE 108 IU/L (3-129)
[2017-04-06 23:52] LABS: DIRECT BILIRUBIN 1.3 mg/dL (0.0-0.3)
[2017-04-06 23:54] LABS: LIPASE 99 U/L (1.0-51.0)
[2017-04-06] MEDS ORDERED: THIAMINE HCL100 MG PO (23:59)
[2017-04-06] MEDS ORDERED: LIBRIUM25 MG PO (23:59)
[2017-04-07 00:01] LABS: MEAN PLAT.VOLUME 9.5 uM^3 (9.0-12.4); PLAT.SUFFICIENCY DECREASED; PLATELET COUNT 83 K/uL (156-360)
[2017-04-07 01:01] LABS: BASE EXCESS 2.7 mEq/L (-3 to +3); BICARBONATE 27.9 mEq/L (22-26); CARBOXY HGB 2.8 % (0-5); METHEMOGLOBIN 0.8 % (0-1.5); PCO2 44 mm Hg (35-45); PO2 64 mm Hg (80-100); pH 7.41 (7.35-7.45)
[2017-04-07 01:02] LABS: COMMENTS - BLOOD GASES C+; DEVICE NC; O2 FLOW 2 L/MIN; SITE LR; TOTAL RESP RATE 16 resp/min
[2017-04-07] MEDS ORDERED: METHOCARBAMOL750 MG PO (04:53)
[2017-04-07] MEDS ORDERED: AMLODIPINE BESYL5 MG PO (04:54)
[2017-04-07 05:51] VITALS: BP 142/87
[2017-04-07 06:50] LABS: TROP-I INTERPRETATION NEGATIVE; TROPONIN-I 0.01 ng/mL (0.0-0.30)
[2017-04-07 08:11] VITALS: BP 149/87
[2017-04-07 11:15] VITALS: BP 168/89
[2017-04-07 11:38] LABS: ADD MIUA? NO; BILIRUBIN NEGATIVE; BLOOD NEGATIVE; COLOR YELLOW ((YELLOW)); GLUCOSE (STRIP) NEGATIVE; KETONES NEGATIVE; LEUKOCYTES NEGATIVE; NITRITE NEGATIVE; PROTEIN (STRIP) NEGATIVE; UCUL ADDED? NO
[2017-04-07 12:01] LABS: METH RESISTANT S AUREUS PCR POSITIVE (NEGATIVE)
[2017-04-07 12:06] LABS: PROBE CHECK PASS
[2017-04-07 12:31] LABS: TROP-I INTERPRETATION NEGATIVE; TROPONIN-I < 0.01 ng/mL (0.0-0.30)
[2017-04-07 16:31] VITALS: BP 151/82
[2017-04-07 18:05] LABS: TROP-I INTERPRETATION NEGATIVE; TROPONIN-I < 0.01 ng/mL (0.0-0.30)
[2017-04-07 19:39] VITALS: BP 138/79
[2017-04-07 23:31] VITALS: BP 122/82
[2017-04-08 04:10] VITALS: BP 135/67
[2017-04-08 07:52] LABS: HEMATOCRIT 36.6 % (38.0-50.0); MCH 36.1 PG (29.0-34.0); MCHC 34.4 G/DL (30.0-36.0); MCV 104.9 FL (86-99); MEAN PLAT.VOLUME 9.4 uM^3 (9.0-12.4); PLATELET COUNT 72 K/uL (156-360); RBC DIS.WIDTH-SD 53.7 % (39-53); RED BLOOD COUNT 3.49 M/uL (4.00-5.50); WHITE BLOOD COUNT 4.5 K/uL (4.1-10.2)
[2017-04-08 08:29] LABS: ANION GAP 9 MEQ/L (2-14); CHLORIDE 102 MEQ/L (99-109); GFR ESTIMATE (CALCULATED) > 59 mL/min/; GLUCOSE 81 mg/dL (70-99); MAGNESIUM 1.7 mg/dl (1.3-2.7); POTASSIUM 3.8 MEQ/L (3.7-5.4); SAMPLE HEMOLYSIS CHECK 0; SAMPLE ICTERIC CHECK 0; SAMPLE LIPEMIA CHECK 0; UREA NITROGEN (BUN) 13 mg/dL (9-23)
[2017-04-08 08:31] LABS: SODIUM 137 MEQ/L (136-147)
[2017-04-08 08:36] VITALS: BP 162/89
[2017-04-08 11:57] VITALS: BP 142/74
[2017-04-08] MEDS ORDERED: THERAGRAN1 TABLET PO (12:19)
[2017-04-08] MEDS ORDERED: Thiamine,Vitamin B1 PO (12:19)
[2017-04-08] MEDS ORDERED: FOLIC ACID1 MG PO (12:19)
[2017-04-08] MEDS ORDERED: TORADOL10 MG PO (12:19)
== END 2017-04-08 14:40 | disposition home or self-care (01) | DRG 918 ==
LOC: EME 22:04 → EDOF 04-07 04:31 → 5SOUTH 04-07 05:16
PROVIDERS: Emergency Medicine; Hospitalist; Internal Medicine
DX: T51.0X1A Toxic effect of ethanol, accidental (unintentional), initial encounter (principal); D69.6 Thrombocytopenia, unspecified; S81.012A Laceration without foreign body, left knee, initial encounter; E87.1 Hypo-osmolality and hyponatremia; K70.30 Alcoholic cirrhosis of liver without ascites; J44.1 Chronic obstructive pulmonary disease with (acute) exacerbation; F10.229 Alcohol dependence with intoxication, unspecified; Y90.6 Blood alcohol level of 120-199 mg/100 ml; W19.XXXA Unspecified fall, initial encounter; Z91.81 History of falling; R09.02 Hypoxemia; F60.7 Dependent personality disorder; I10 Essential (primary) hypertension; F43.23 Adjustment disorder with mixed anxiety and depressed mood; G47.33 Obstructive sleep apnea (adult) (pediatric); Y92.9 Unspecified place or not applicable; Z87.891 Personal history of nicotine dependence; Z59.0 Homelessness
CPT/HCPCS: 36600; 71010; 71020; 71275; 73564; 80048; 80076; 81003; 82803; 83690; 83735; 83880; 84484; 85027; 87081; 87641; 94640; 94799; G0480; J1650; J2930; J7030

== ENCOUNTER 2017-04-08 21:45 | Emergency (ER) | payer OTHER ==
[~2017-04-08] VITALS: Ht 167.6 cm; Wt 100.0 kg
[~2017-04-08 21:45] MED LIST changes: +LIBRIUM25 MG PO; +METHOCARBAMOL750 MG PO; +THERAGRAN1 TABLET PO; +TORADOL10 MG PO
[2017-04-09 00:35] VITALS: BP 112/69
== END 2017-04-09 00:36 | disposition home or self-care (01) ==
LOC: EME 21:45
DX: S93.401D Sprain of unspecified ligament of right ankle, subsequent encounter (principal); W10.1XXD Fall (on)(from) sidewalk curb, subsequent encounter
CPT/HCPCS: 99281; 99284

== ENCOUNTER 2017-04-09 21:39 | Emergency (ER) | payer OTHER ==
[~2017-04-09] VITALS: Ht 167.6 cm; Wt 113.9 kg
[2017-04-09 21:59] VITALS: BP 134/93
[2017-04-09 22:56] LABS: HEMATOCRIT 35.1 % (38.0-50.0); MCH 36.1 PG (29.0-34.0); MCHC 34.8 G/DL (30.0-36.0); MCV 103.8 FL (86-99); MEAN PLAT.VOLUME 9.1 uM^3 (9.0-12.4); PLATELET COUNT 78 K/uL (156-360); RBC DIS.WIDTH-CV 14.1 % (11.8-14.6); RED BLOOD COUNT 3.38 M/uL (4.00-5.50); WHITE BLOOD COUNT 5.4 K/uL (4.1-10.2)
[2017-04-09 23:06] LABS: CHLORIDE 102 mEq/L (99-109); POTASSIUM 4.4 mEq/L (3.7-5.4); SODIUM 131 mEq/L (136-147)
[2017-04-09 23:08] LABS: GLUCOSE 93 mg/dL (70-99)
[2017-04-09 23:09] LABS: ANION GAP 8 MEQ/L (2-14)
[2017-04-09 23:10] LABS: TOTAL BILIRUBIN 2.5 mg/dL (0.0-1.0)
[2017-04-09 23:11] LABS: GFR ESTIMATE (CALCULATED) > 59 mL/min/
[2017-04-09 23:13] LABS: ALKALINE PHOSPHATASE 149 IU/L (3-129); UREA NITROGEN (BUN) 11 mg/dL (9-23)
== END 2017-04-10 00:09 | disposition home or self-care (01) ==
LOC: EME 21:39
DX: R10.9 Unspecified abdominal pain (principal); M54.9 Dorsalgia, unspecified; Z59.0 Homelessness; R06.02 Shortness of breath; K59.00 Constipation, unspecified; R11.0 Nausea; K74.60 Unspecified cirrhosis of liver; I10 Essential (primary) hypertension; F32.9 Major depressive disorder, single episode, unspecified; F10.10 Alcohol abuse, uncomplicated; R10.13 Epigastric pain
CPT/HCPCS: 74022; 80053; 81003; 85027; 99281; 99283

== ENCOUNTER 2017-04-10 23:12 | Emergency (ER) | payer OTHER ==
[~2017-04-10] VITALS: Ht 167.6 cm; Wt 112.0 kg
[2017-04-10 23:51] LABS: HEMATOCRIT 35.3 % (38.0-50.0); MCH 36.5 PG (29.0-34.0); MCHC 35.1 G/DL (30.0-36.0); MCV 103.8 FL (86-99); MEAN PLAT.VOLUME 8.6 uM^3 (9.0-12.4); PLATELET COUNT 71 K/uL (156-360); RBC DIS.WIDTH-CV 14.3 % (11.8-14.6); RBC DIS.WIDTH-SD 54.9 % (39-53); WHITE BLOOD COUNT 4.1 K/uL (4.1-10.2)
[2017-04-11 00:01] LABS: CHLORIDE 103 mEq/L (99-109); POTASSIUM 3.9 mEq/L (3.7-5.4); SODIUM 136 mEq/L (136-147)
[2017-04-11 00:04] LABS: GLUCOSE 91 mg/dL (70-99)
[2017-04-11 00:05] LABS: ANION GAP 12 MEQ/L (2-14); TOTAL BILIRUBIN 2.9 mg/dL (0.0-1.0)
[2017-04-11 00:06] LABS: SERUM ETHYL ALCOHOL 275 mg/dL
[2017-04-11 00:07] LABS: GFR ESTIMATE (CALCULATED) > 59 mL/min/
[2017-04-11 00:08] LABS: ALKALINE PHOSPHATASE 113 IU/L (3-129)
[2017-04-11 00:09] LABS: UREA NITROGEN (BUN) 8 mg/dL (9-23)
[2017-04-11 00:11] LABS: SALICYLATE < 5.0 MG/DL (15-30)
[2017-04-11 00:38] LABS: LIPASE 60 U/L (1.0-51.0)
[2017-04-11 03:36] LABS: ADD MIUA? YES; BILIRUBIN NEGATIVE; BLOOD NEGATIVE; COLOR YELLOW ((YELLOW)); GLUCOSE (STRIP) NEGATIVE; KETONES NEGATIVE; LEUKOCYTES NEGATIVE; NITRITE NEGATIVE; PROTEIN (STRIP) NEGATIVE; SPECIFIC GRAVITY 1.004 (1.000-1.030); UROBILINOGEN 0.2 MG/DL (0.2-1.0)
[2017-04-11 03:47] LABS: BACTERIA 1+ /HPF; EPITHELIAL CELLS RARE /HPF; MUCUS TRACE /LPF; RED BLOOD CELLS 0-5 /HPF (0-5); UCUL ADDED? NO; WHITE BLOOD CELLS 0-5 /HPF (0-5)
[2017-04-11 03:54] LABS: AMPHETAMINE NEGATIVE (500 ng/mL); BARBITURATES NEGATIVE (200 ng/mL); BENZODIAZEPINES PRESUMPTIVE POSITIVE (150 ng/mL); COCAINE NEGATIVE (150 ng/mL); INTERNAL CONTROLS VALID? YES; METHADONE NEGATIVE (200 ng/mL); METHAMPHETAMINE NEGATIVE (500 ng/mL); OPIATES (MORPHINE) NEGATIVE (100 ng/mL); OXYCODONE NEGATIVE (100 ng/mL); PHENCYCLIDINE NEGATIVE (25 ng/mL); PROPOXYPHENE NEGATIVE (300 ng/mL); THC CANNABINOIDS NEGATIVE (50 ng/mL); TRICYCLIC ANTIDEPRESSANTS NEGATIVE (300 ng/mL)
[2017-04-11 03:55] LABS: ADD MEDTOX COMMENT Y
[2017-04-11 06:06] LABS: BENZODIAZEPINES, URINE SCREEN POSITIVE (200 ng/mL)
[2017-04-11 09:50] VITALS: BP 116/40
== END 2017-04-11 09:54 | disposition home or self-care (01) ==
LOC: EME 23:12
PROVIDERS: Emergency Medicine
DX: F10.229 Alcohol dependence with intoxication, unspecified (principal); Y90.8 Blood alcohol level of 240 mg/100 ml or more; F32.2 Major depressive disorder, single episode, severe without psychotic features; K74.60 Unspecified cirrhosis of liver; I10 Essential (primary) hypertension; Z59.0 Homelessness
CPT/HCPCS: 76705; 80053; 81003; 83690; 84999; 85027; 90837; 99281; 99285; G0480

== ENCOUNTER 2017-04-11 21:49 | Emergency (ER) | payer OTHER ==
[~2017-04-11] VITALS: Ht 167.6 cm; Wt 110.5 kg
[2017-04-11 23:15] LABS: HEMATOCRIT 35.5 % (38.0-50.0); MCHC 34.4 G/DL (30.0-36.0); MCV 104.7 FL (86-99); MEAN PLAT.VOLUME 9.1 uM^3 (9.0-12.4); PLATELET COUNT 70 K/uL (156-360); RBC DIS.WIDTH-CV 14.1 % (11.8-14.6); RBC DIS.WIDTH-SD 54.6 % (39-53); RED BLOOD COUNT 3.39 M/uL (4.00-5.50); WHITE BLOOD COUNT 3.8 K/uL (4.1-10.2)
[2017-04-11 23:26] LABS: CHLORIDE 102 mEq/L (99-109); POTASSIUM 4.6 mEq/L (3.7-5.4); SODIUM 136 mEq/L (136-147)
[2017-04-11 23:28] LABS: GLUCOSE 95 mg/dL (70-99)
[2017-04-11 23:29] LABS: ANION GAP 11 MEQ/L (2-14)
[2017-04-11 23:31] LABS: SERUM ETHYL ALCOHOL 267 mg/dL
[2017-04-11 23:32] LABS: GFR ESTIMATE (CALCULATED) > 59 mL/min/
[2017-04-11 23:33] LABS: UREA NITROGEN (BUN) 10 mg/dL (9-23)
[2017-04-11 23:35] LABS: SALICYLATE < 5.0 MG/DL (15-30)
[2017-04-12 07:58] VITALS: BP 111/69
[2017-04-13] MEDS ORDERED: FOLIC ACID1 MG PO (11:23)
[2017-04-13] MEDS ORDERED: MULTI-VITAMIN1 EAC4 PO (11:23)
== END 2017-04-12 08:45 | disposition home or self-care (01) ==
LOC: EME → EDBD 21:49 → EME 21:49
PROVIDERS: Emergency Medicine
DX: F32.2 Major depressive disorder, single episode, severe without psychotic features (principal); T39.1X2A Poisoning by 4-Aminophenol derivatives, intentional self-harm, initial encounter; F10.129 Alcohol abuse with intoxication, unspecified; Y90.8 Blood alcohol level of 240 mg/100 ml or more; I10 Essential (primary) hypertension
CPT/HCPCS: 80048; 85027; 90837; 99281; 99285; G0480

== ENCOUNTER 2017-04-12 21:30 | Inpatient (IN) | payer OTHER ==
[~2017-04-12] VITALS: Ht 167.6 cm; Wt 108.8 kg
[2017-04-12 22:43] LABS: EOSINOPHIL (%) 3.8 % (0-5); EOSINOPHIL COUNT 0.2 K/uL (0-0.3); HEMATOCRIT 33.9 % (38.0-50.0); IMMATURE GRANULOCYTE (%) 0.2 % (0.0-0.7); INSTRUMENT ABS NEUTROPHIL CT 1.9 K/uL; LYMPHOCYTE COUNT 1.8 K/uL (1.0-2.8); MCH 36.4 PG (29.0-34.0); MCHC 34.5 G/DL (30.0-36.0); MCV 105.6 FL (86-99); MEAN PLAT.VOLUME 8.7 uM^3 (9.0-12.4); MONOCYTE (%) 12.5 % (3-12); MONOCYTE COUNT 0.6 K/uL (0-0.8); NEUTROPHIL (%) 43.4 % (45-76); NEUTROPHIL COUNT 1.9 K/uL (1.8-6.4); PLATELET COUNT 65 K/uL (156-360); RBC DIS.WIDTH-CV 14.2 % (11.8-14.6); RBC DIS.WIDTH-SD 55.7 % (39-53); RED BLOOD COUNT 3.21 M/uL (4.00-5.50); WHITE BLOOD COUNT 4.5 K/uL (4.1-10.2)
[2017-04-12 22:57] LABS: CHLORIDE 101 mEq/L (99-109); POTASSIUM 4.3 mEq/L (3.7-5.4); SODIUM 133 mEq/L (136-147)
[2017-04-12 22:59] LABS: GLUCOSE 97 mg/dL (70-99)
[2017-04-12 23:00] LABS: ANION GAP 6 MEQ/L (2-14)
[2017-04-12 23:02] LABS: SERUM ETHYL ALCOHOL 267 mg/dL
[2017-04-12 23:03] LABS: GFR ESTIMATE (CALCULATED) > 59 mL/min/
[2017-04-12 23:06] LABS: SALICYLATE < 5.0 MG/DL (15-30); UREA NITROGEN (BUN) 8 mg/dL (9-23)
[2017-04-12 23:07] LABS: CREATINE KINASE 469 IU/L (1-294); TOTAL CK 469 IU/L (1-294)
[2017-04-12 23:15] LABS: CK-MB 6.5 ng/mL (0.0-4.9); TOTAL BILIRUBIN 2.3 mg/dL (0.0-1.0)
[2017-04-12 23:21] LABS: MAGNESIUM 1.7 mg/dL (1.3-2.7)
[2017-04-12 23:25] LABS: ALKALINE PHOSPHATASE 113 IU/L (3-129)
[2017-04-13 09:15] LABS: ADD MIUA? YES; BILIRUBIN NEGATIVE; BLOOD NEGATIVE; COLOR YELLOW ((YELLOW)); GLUCOSE (STRIP) NEGATIVE; KETONES NEGATIVE; LEUKOCYTES NEGATIVE; NITRITE NEGATIVE; PROTEIN (STRIP) NEGATIVE; SPECIFIC GRAVITY 1.008 (1.000-1.030); UROBILINOGEN 0.2 MG/DL (0.2-1.0)
[2017-04-13 09:42] LABS: ADD MEDTOX COMMENT Y; AMPHETAMINE NEGATIVE (500 ng/mL); BARBITURATES NEGATIVE (200 ng/mL); BENZODIAZEPINES PRESUMPTIVE POSITIVE (150 ng/mL); COCAINE NEGATIVE (150 ng/mL); INTERNAL CONTROLS VALID? YES; METHADONE NEGATIVE (200 ng/mL); METHAMPHETAMINE NEGATIVE (500 ng/mL); OPIATES (MORPHINE) NEGATIVE (100 ng/mL); OXYCODONE NEGATIVE (100 ng/mL); PHENCYCLIDINE NEGATIVE (25 ng/mL); PROPOXYPHENE NEGATIVE (300 ng/mL); THC CANNABINOIDS NEGATIVE (50 ng/mL); TRICYCLIC ANTIDEPRESSANTS NEGATIVE (300 ng/mL)
[2017-04-13 09:44] LABS: BACTERIA NONE SEEN /HPF; EPITHELIAL CELLS RARE /HPF; HYALINE CASTS 0-5 /LPF; MUCUS TRACE /LPF; RED BLOOD CELLS 0-5 /HPF (0-5); UCUL ADDED? NO; WHITE BLOOD CELLS 0-5 /HPF (0-5)
[2017-04-13 10:33] LABS: BENZODIAZEPINES, URINE SCREEN POSITIVE (200 ng/mL)
[2017-04-13 10:41] VITALS: BP 172/88
[2017-04-13] MEDS ORDERED: MULTI-VITAMIN1 EAC4 PO (11:23)
[2017-04-13] MEDS ORDERED: FOLIC ACID1 MG PO (11:23)
[2017-04-13 13:25] LABS: TROP-I INTERPRETATION NEGATIVE; TROPONIN-I < 0.01 ng/mL (0.0-0.30)
[2017-04-13 15:26] VITALS: BP 131/67
[2017-04-13 18:05] LABS: TROP-I INTERPRETATION NEGATIVE; TROPONIN-I 0.01 ng/mL (0.0-0.30)
[2017-04-13 23:45] VITALS: BP 150/81
[2017-04-14 04:09] VITALS: BP 136/65
[2017-04-14 07:36] LABS: HEMATOCRIT 34.1 % (38.0-50.0); MCH 37.6 PG (29.0-34.0); MCHC 35.5 G/DL (30.0-36.0); MCV 105.9 FL (86-99); MEAN PLAT.VOLUME 9.7 uM^3 (9.0-12.4); PLATELET COUNT 52 K/uL (156-360); RBC DIS.WIDTH-CV 14.2 % (11.8-14.6); RBC DIS.WIDTH-SD 55.7 % (39-53); RED BLOOD COUNT 3.22 M/uL (4.00-5.50); WHITE BLOOD COUNT 2.8 K/uL (4.1-10.2)
[2017-04-14 07:42] VITALS: BP 137/77
[2017-04-14 07:59] LABS: PROTHROMBIN TIME 20.7 (9.2-11.2)
[2017-04-14 10:26] VITALS: BP 144/81
[2017-04-14 10:36] LABS: HEMATOCRIT 35.4 % (38.0-50.0); MCH 36.3 PG (29.0-34.0); MCHC 34.2 G/DL (30.0-36.0); MCV 106.3 FL (86-99); MEAN PLAT.VOLUME 9.6 uM^3 (9.0-12.4); PLATELET COUNT 51 K/uL (156-360); RBC DIS.WIDTH-CV 14.4 % (11.8-14.6); RBC DIS.WIDTH-SD 55.8 % (39-53); RED BLOOD COUNT 3.33 M/uL (4.00-5.50); WHITE BLOOD COUNT 2.9 K/uL (4.1-10.2)
[2017-04-14 10:50] LABS: ANION GAP 5 MEQ/L (2-14); CHLORIDE 99 MEQ/L (99-109); GFR ESTIMATE (CALCULATED) > 59 mL/min/; GLUCOSE 74 mg/dL (70-99); POTASSIUM 3.9 MEQ/L (3.7-5.4); SAMPLE HEMOLYSIS CHECK 0; SAMPLE ICTERIC CHECK 1; SAMPLE LIPEMIA CHECK 0; SODIUM 136 MEQ/L (136-147); UREA NITROGEN (BUN) 9 mg/dL (9-23)
[2017-04-14 20:00] VITALS: BP 124/65
[2017-04-15] VITALS (7 sets, daily range): BP systolic 123–153; BP diastolic 69–90
[2017-04-16 03:49] VITALS: BP 134/70
[2017-04-16 07:41] VITALS: BP 141/76
[2017-04-16 08:45] LABS: ANION GAP 9 MEQ/L (2-14); CHLORIDE 102 MEQ/L (99-109); GFR ESTIMATE (CALCULATED) > 59 mL/min/; GLUCOSE 80 mg/dL (70-99); POTASSIUM 3.6 MEQ/L (3.7-5.4); SAMPLE HEMOLYSIS CHECK 0; SAMPLE ICTERIC CHECK 0; SAMPLE LIPEMIA CHECK 0; SODIUM 140 MEQ/L (136-147); UREA NITROGEN (BUN) 9 mg/dL (9-23)
[2017-04-16 08:48] LABS: MAGNESIUM 1.5 mg/dl (1.3-2.7)
[2017-04-16 09:06] LABS: HEMATOCRIT 39.4 % (38.0-50.0); MCH 37.5 PG (29.0-34.0); MCHC 35.3 G/DL (30.0-36.0); MCV 106.2 FL (86-99); MEAN PLAT.VOLUME 9.5 uM^3 (9.0-12.4); RBC DIS.WIDTH-CV 14.7 % (11.8-14.6); RBC DIS.WIDTH-SD 57.4 % (39-53); RED BLOOD COUNT 3.71 M/uL (4.00-5.50); WHITE BLOOD COUNT 3.4 K/uL (4.1-10.2)
[2017-04-16 09:07] LABS: PLATELET COUNT 73 K/uL (156-360)
[2017-04-16 11:46] VITALS: BP 150/82
[2017-04-16 16:27] VITALS: BP 124/61
[2017-04-16 19:31] VITALS: BP 131/74
[2017-04-16 23:27] VITALS: BP 155/74
[2017-04-17 03:51] VITALS: BP 114/70
[2017-04-17 07:23] VITALS: BP 139/89
[2017-04-17 09:10] LABS: HEMATOCRIT 42.3 % (38.0-50.0); MCH 35.9 PG (29.0-34.0); MCHC 33.8 G/DL (30.0-36.0); MCV 106.3 FL (86-99); MEAN PLAT.VOLUME 9.2 uM^3 (9.0-12.4); PLATELET COUNT 68 K/uL (156-360); RBC DIS.WIDTH-CV 14.6 % (11.8-14.6); RBC DIS.WIDTH-SD 57.3 % (39-53); RED BLOOD COUNT 3.98 M/uL (4.00-5.50); WHITE BLOOD COUNT 3.2 K/uL (4.1-10.2)
[2017-04-17 09:42] LABS: ANION GAP 5 MEQ/L (2-14); CHLORIDE 101 MEQ/L (99-109); GFR ESTIMATE (CALCULATED) > 59 mL/min/; POTASSIUM 3.8 MEQ/L (3.7-5.4); SAMPLE HEMOLYSIS CHECK 0; SAMPLE ICTERIC CHECK 0; SAMPLE LIPEMIA CHECK 0; SODIUM 137 MEQ/L (136-147); UREA NITROGEN (BUN) 10 mg/dL (9-23)
[2017-04-17 09:49] LABS: GLUCOSE 151 mg/dL (70-99)
[2017-04-17 11:10] VITALS: BP 111/79
[2017-04-17 15:27] VITALS: BP 105/58
[2017-04-17 20:11] VITALS: BP 121/81
[2017-04-17 23:54] VITALS: BP 115/59
[2017-04-18 04:00] VITALS: BP 144/74
[2017-04-18 07:02] VITALS: BP 139/91
== END 2017-04-18 15:08 | DRG 918 ==
LOC: EME → EDBD 21:30 → EDOF 04-13 07:14 → 3EAST 04-13 07:14
PROVIDERS: Emergency Medicine; Hospitalist; Internal Medicine; Physician Assistant
DX: T43.591A Poisoning by other antipsychotics and neuroleptics, accidental (unintentional), initial encounter (principal); T42.8X1A Poisoning by antiparkinsonism drugs and other central muscle-tone depressants, accidental (unintentional), initial encounter; T65.892A Toxic effect of other specified substances, intentional self-harm, initial encounter; T39.8X1A Poisoning by other nonopioid analgesics and antipyretics, not elsewhere classified, accidental (unintentional), initial encounter; R56.9 Unspecified convulsions; T45.8X1A Poisoning by other primarily systemic and hematological agents, accidental (unintentional), initial encounter; F10.229 Alcohol dependence with intoxication, unspecified; E83.52 Hypercalcemia; F32.9 Major depressive disorder, single episode, unspecified; Y90.8 Blood alcohol level of 240 mg/100 ml or more; G47.30 Sleep apnea, unspecified; F60.9 Personality disorder, unspecified; I10 Essential (primary) hypertension; S00.81XA Abrasion of other part of head, initial encounter; D69.6 Thrombocytopenia, unspecified; E83.51 Hypocalcemia; R09.02 Hypoxemia; F60.7 Dependent personality disorder; F43.21 Adjustment disorder with depressed mood; Z59.0 Homelessness; Y92.9 Unspecified place or not applicable
CPT/HCPCS: 71010; 76705; 80048; 80053; 81003; 82550; 82553; 82607; 82746; 83690; 83735; 84484; 84999; 85025; 85027; 85610; 85730; 90837; 93005; 94799; 99281; 99285; G0480; J0610; J3411; J3475; J7030; J7050

== ENCOUNTER 2017-04-18 15:13 | Inpatient (IN) | payer OTHER ==
[~2017-04-18] VITALS: Ht 172.7 cm; Wt 102.4 kg
[~2017-04-18 15:13] MED LIST changes: +MULTI-VITAMIN1 EAC4 PO
[2017-04-18 15:34] VITALS: BP 136/81
[2017-04-18 15:35] VITALS: BP 136/81
[2017-04-19 07:48] VITALS: BP 135/80
[2017-04-19 15:20] VITALS: BP 108/57
[2017-04-20 15:32] VITALS: BP 109/55
[2017-04-21 08:01] VITALS: BP 121/75
[2017-04-21 16:37] VITALS: BP 107/56
[2017-04-22 07:46] VITALS: BP 137/77
[2017-04-22 15:57] VITALS: BP 97/51
[2017-04-23 07:51] VITALS: BP 138/81
[2017-04-23 15:26] VITALS: BP 147/79
[2017-04-24 07:50] VITALS: BP 118/62
[2017-04-24] MEDS ORDERED: ESCITALOPRAM OX20 MG PO (09:27)
[2017-04-24] MEDS ORDERED: AMLODIPINE BESYL5 MG PO (09:27)
== END 2017-04-24 13:39 | disposition home or self-care (01) | DRG 885 ==
LOC: 1WEST 15:13
DX: F33.9 Major depressive disorder, recurrent, unspecified (principal); R45.851 Suicidal ideations; G47.30 Sleep apnea, unspecified; I10 Essential (primary) hypertension; Z59.0 Homelessness; F60.7 Dependent personality disorder; F41.1 Generalized anxiety disorder; F10.20 Alcohol dependence, uncomplicated
CPT/HCPCS: 97150 GO

== ENCOUNTER 2017-04-25 21:52 | Emergency (ER) | payer OTHER ==
[~2017-04-25] VITALS: Ht 167.6 cm; Wt 101.8 kg
[2017-04-26 02:58] VITALS: BP 121/67
== END 2017-04-26 03:04 | disposition home or self-care (01) ==
LOC: EME 21:52
PROC: 2W3QX1Z Immobilization of Right Lower Leg using Splint (ICD-10-PCS; principal; 2017-04-26)
DX: S82.831A Other fracture of upper and lower end of right fibula, initial encounter for closed fracture (principal); W18.30XA Fall on same level, unspecified, initial encounter
CPT/HCPCS: 73000; 73564; 73590; 73610; 99281; 99285

== ENCOUNTER 2017-04-28 00:08 | Emergency (ER) | payer OTHER ==
[~2017-04-28] VITALS: Ht 167.6 cm; Wt 106.7 kg
[2017-04-28 01:48] LABS: HEMATOCRIT 37.4 % (38.0-50.0); MCH 36.7 PG (29.0-34.0); MCHC 35.3 G/DL (30.0-36.0); MCV 103.9 FL (86-99); MEAN PLAT.VOLUME 9.8 uM^3 (9.0-12.4); PLATELET COUNT 75 K/uL (156-360); RBC DIS.WIDTH-CV 14.7 % (11.8-14.6); RBC DIS.WIDTH-SD 56.8 % (39-53); WHITE BLOOD COUNT 4.1 K/uL (4.1-10.2)
[2017-04-28 02:07] LABS: CHLORIDE 106 mEq/L (99-109); POTASSIUM 3.8 mEq/L (3.7-5.4); SODIUM 141 mEq/L (136-147)
[2017-04-28 02:09] LABS: GLUCOSE 97 mg/dL (70-99)
[2017-04-28 02:10] LABS: ANION GAP 11 MEQ/L (2-14)
[2017-04-28 02:13] LABS: GFR ESTIMATE (CALCULATED) > 59 mL/min/; UREA NITROGEN (BUN) 8 mg/dL (9-23)
[2017-04-28 02:17] LABS: TROP-I INTERPRETATION NEGATIVE; TROPONIN-I 0.01 ng/mL (0.0-0.30)
[2017-04-28 02:35] LABS: SERUM ETHYL ALCOHOL 245 mg/dL
[2017-04-28 09:41] LABS: ADD MIUA? NO; BILIRUBIN NEGATIVE; BLOOD NEGATIVE; COLOR STRAW ((YELLOW)); GLUCOSE (STRIP) NEGATIVE; KETONES NEGATIVE; LEUKOCYTES NEGATIVE; NITRITE NEGATIVE; PROTEIN (STRIP) NEGATIVE; SPECIFIC GRAVITY 1.004 (1.000-1.030); UCUL ADDED? NO; UROBILINOGEN 0.2 MG/DL (0.2-1.0)
[2017-04-28 09:55] LABS: AMPHETAMINE NEGATIVE (500 ng/mL); BARBITURATES NEGATIVE (200 ng/mL); BENZODIAZEPINES PRESUMPTIVE POSITIVE (150 ng/mL); COCAINE NEGATIVE (150 ng/mL); INTERNAL CONTROLS VALID? YES; METHADONE NEGATIVE (200 ng/mL); METHAMPHETAMINE NEGATIVE (500 ng/mL); OPIATES (MORPHINE) NEGATIVE (100 ng/mL); OXYCODONE NEGATIVE (100 ng/mL); PHENCYCLIDINE NEGATIVE (25 ng/mL); PROPOXYPHENE NEGATIVE (300 ng/mL); THC CANNABINOIDS NEGATIVE (50 ng/mL); TRICYCLIC ANTIDEPRESSANTS NEGATIVE (300 ng/mL)
[2017-04-28 09:56] LABS: ADD MEDTOX COMMENT Y
[2017-04-28 10:30] VITALS: BP 133/78
[2017-04-28 11:07] LABS: BENZODIAZEPINES, URINE SCREEN POSITIVE (200 ng/mL)
== END 2017-04-28 10:30 | disposition home or self-care (01) ==
LOC: EME → EDBD 00:08 → EME 00:08
PROVIDERS: Emergency Medicine
DX: F10.229 Alcohol dependence with intoxication, unspecified (principal); Y90.8 Blood alcohol level of 240 mg/100 ml or more; F32.9 Major depressive disorder, single episode, unspecified; R45.851 Suicidal ideations; Z59.0 Homelessness; F19.94 Other psychoactive substance use, unspecified with psychoactive substance-induced mood disorder; I10 Essential (primary) hypertension
CPT/HCPCS: 80048; 81003; 84484; 84999; 85027; 90839; 99281; 99285; G0480

== ENCOUNTER 2017-04-29 01:13 | Emergency (ER) | payer OTHER ==
[~2017-04-29] VITALS: Ht 167.6 cm; Wt 108.2 kg
[2017-04-29 01:56] VITALS: BP 156/95
== END 2017-04-29 01:57 | disposition home or self-care (01) ==
LOC: EME → EDBD 01:13 → EME 01:13
DX: F10.129 Alcohol abuse with intoxication, unspecified (principal); F32.9 Major depressive disorder, single episode, unspecified; I10 Essential (primary) hypertension; F41.9 Anxiety disorder, unspecified; Z91.5 Personal history of self-harm
CPT/HCPCS: 99281; 99284

== ENCOUNTER 2017-04-29 23:59 | Emergency (ER) | payer OTHER ==
[~2017-04-29] VITALS: Ht 167.6 cm; Wt 101.7 kg
[2017-04-30 01:05] LABS: EOSINOPHIL (%) 6.9 % (0-5); EOSINOPHIL COUNT 0.3 K/uL (0-0.3); HEMATOCRIT 35.1 % (38.0-50.0); IMMATURE GRANULOCYTE (%) 0.3 % (0.0-0.7); INSTRUMENT ABS NEUTROPHIL CT 1.3 K/uL; LYMPHOCYTE COUNT 1.7 K/uL (1.0-2.8); MCH 35.8 PG (29.0-34.0); MCHC 34.8 G/DL (30.0-36.0); MCV 102.9 FL (86-99); MEAN PLAT.VOLUME 8.8 uM^3 (9.0-12.4); MONOCYTE (%) 11.6 % (3-12); MONOCYTE COUNT 0.4 K/uL (0-0.8); NEUTROPHIL (%) 34.6 % (45-76); NEUTROPHIL COUNT 1.3 K/uL (1.8-6.4); PLATELET COUNT 58 K/uL (156-360); RBC DIS.WIDTH-CV 14.7 % (11.8-14.6); RBC DIS.WIDTH-SD 55.6 % (39-53); RED BLOOD COUNT 3.41 M/uL (4.00-5.50); WHITE BLOOD COUNT 3.6 K/uL (4.1-10.2)
[2017-04-30 01:17] LABS: CHLORIDE 109 mEq/L (99-109); POTASSIUM 3.6 mEq/L (3.7-5.4); SODIUM 144 mEq/L (136-147)
[2017-04-30 01:19] LABS: GLUCOSE 105 mg/dL (70-99)
[2017-04-30 01:20] LABS: ANION GAP 9 MEQ/L (2-14)
[2017-04-30 01:21] LABS: TOTAL BILIRUBIN 2.5 mg/dL (0.0-1.0)
[2017-04-30 01:22] LABS: SERUM ETHYL ALCOHOL 192 mg/dL
[2017-04-30 01:23] LABS: ALKALINE PHOSPHATASE 113 IU/L (3-129); GFR ESTIMATE (CALCULATED) > 59 mL/min/
[2017-04-30 01:25] LABS: UREA NITROGEN (BUN) 7 mg/dL (9-23)
[2017-04-30 01:26] LABS: SALICYLATE < 5.0 MG/DL (15-30)
[2017-04-30 06:02] VITALS: BP 149/91
[2017-05-01] MEDS ORDERED: PEPCID20 MG PO (06:11)
== END 2017-04-30 06:10 | disposition home or self-care (01) ==
LOC: EME 23:59
PROVIDERS: Emergency Medicine
DX: F32.9 Major depressive disorder, single episode, unspecified (principal); F10.129 Alcohol abuse with intoxication, unspecified; Y90.6 Blood alcohol level of 120-199 mg/100 ml; I10 Essential (primary) hypertension
CPT/HCPCS: 80053; 81003; 85025; 90837; G0480

== ENCOUNTER 2017-04-30 23:36 | Emergency (ER) | payer OTHER ==
[~2017-04-30] VITALS: Ht 167.6 cm; Wt 100.0 kg
[2017-05-01 02:02] LABS: MCH 35.3 PG (29.0-34.0); MCHC 34.4 G/DL (30.0-36.0); MCV 102.6 FL (86-99); MEAN PLAT.VOLUME 9.8 uM^3 (9.0-12.4); PLATELET COUNT 60 K/uL (156-360); RBC DIS.WIDTH-CV 14.8 % (11.8-14.6); RBC DIS.WIDTH-SD 55.6 % (39-53); RED BLOOD COUNT 3.51 M/uL (4.00-5.50); WHITE BLOOD COUNT 4.1 K/uL (4.1-10.2)
[2017-05-01 02:14] LABS: CHLORIDE 106 mEq/L (99-109); POTASSIUM 3.6 mEq/L (3.7-5.4); SODIUM 140 mEq/L (136-147)
[2017-05-01 02:16] LABS: GLUCOSE 95 mg/dL (70-99)
[2017-05-01 02:17] LABS: ANION GAP 10 MEQ/L (2-14)
[2017-05-01 02:19] LABS: GFR ESTIMATE (CALCULATED) > 59 mL/min/; SERUM ETHYL ALCOHOL 201 mg/dL
[2017-05-01 02:21] LABS: UREA NITROGEN (BUN) 5 mg/dL (9-23)
[2017-05-01 02:23] LABS: SALICYLATE < 5.0 MG/DL (15-30)
[2017-05-01 05:54] LABS: ADD MIUA? NO; BILIRUBIN NEGATIVE; BLOOD NEGATIVE; COLOR YELLOW ((YELLOW)); GLUCOSE (STRIP) NEGATIVE; KETONES NEGATIVE; LEUKOCYTES NEGATIVE; NITRITE NEGATIVE; PROTEIN (STRIP) NEGATIVE; SPECIFIC GRAVITY 1.005 (1.000-1.030); UCUL ADDED? NO; UROBILINOGEN 0.2 MG/DL (0.2-1.0)
[2017-05-01 06:09] LABS: AMPHETAMINE NEGATIVE (500 ng/mL); BARBITURATES NEGATIVE (200 ng/mL); BENZODIAZEPINES PRESUMPTIVE POSITIVE (150 ng/mL); COCAINE NEGATIVE (150 ng/mL); INTERNAL CONTROLS VALID? YES; METHADONE NEGATIVE (200 ng/mL); METHAMPHETAMINE NEGATIVE (500 ng/mL); OPIATES (MORPHINE) NEGATIVE (100 ng/mL); OXYCODONE NEGATIVE (100 ng/mL); PHENCYCLIDINE NEGATIVE (25 ng/mL); PROPOXYPHENE NEGATIVE (300 ng/mL); THC CANNABINOIDS NEGATIVE (50 ng/mL); TRICYCLIC ANTIDEPRESSANTS NEGATIVE (300 ng/mL)
[2017-05-01 06:10] LABS: ADD MEDTOX COMMENT Y
[2017-05-01] MEDS ORDERED: PEPCID20 MG PO (06:11)
[2017-05-01 06:40] VITALS: BP 139/77
[2017-05-01 06:50] LABS: BENZODIAZEPINES, URINE SCREEN POSITIVE (200 ng/mL)
== END 2017-05-01 06:41 | disposition home or self-care (01) ==
LOC: EME 23:36
PROC: 2W3QX1Z Immobilization of Right Lower Leg using Splint (ICD-10-PCS; principal; 2017-05-01)
DX: F10.10 Alcohol abuse, uncomplicated (principal); F32.9 Major depressive disorder, single episode, unspecified; S82.401D Unspecified fracture of shaft of right fibula, subsequent encounter for closed fracture with routine healing; Y90.7 Blood alcohol level of 200-239 mg/100 ml; Z91.5 Personal history of self-harm
CPT/HCPCS: 80048; 81003; 84999; 85027; 90839; 93005; 99281; 99284; G0480

== ENCOUNTER 2017-05-01 23:32 | Emergency (ER) | payer OTHER ==
[~2017-05-01] VITALS: Ht 167.6 cm; Wt 106.3 kg
[~2017-05-01 23:32] MED LIST changes: +PEPCID20 MG PO
[2017-05-02 00:53] LABS: HEMATOCRIT 33.9 % (38.0-50.0); MCH 35.6 PG (29.0-34.0); MCHC 34.8 G/DL (30.0-36.0); MCV 102.4 FL (86-99); PLATELET COUNT 65 K/uL (156-360); RBC DIS.WIDTH-CV 14.7 % (11.8-14.6); RBC DIS.WIDTH-SD 55.1 % (39-53); RED BLOOD COUNT 3.31 M/uL (4.00-5.50); WHITE BLOOD COUNT 3.1 K/uL (4.1-10.2)
[2017-05-02 01:01] LABS: CHLORIDE 107 mEq/L (99-109); POTASSIUM 3.7 mEq/L (3.7-5.4); SODIUM 140 mEq/L (136-147)
[2017-05-02 01:02] LABS: GLUCOSE 80 mg/dL (70-99)
[2017-05-02 01:04] LABS: ANION GAP 9 MEQ/L (2-14)
[2017-05-02 01:06] LABS: GFR ESTIMATE (CALCULATED) > 59 mL/min/; SERUM ETHYL ALCOHOL 98 mg/dL
[2017-05-02 01:07] LABS: INTER. NORMALIZED RATIO 1.9; PROTHROMBIN TIME 19.6 (9.2-11.2); PTT 28.9 (25-32)
[2017-05-02 01:08] LABS: UREA NITROGEN (BUN) 5 mg/dL (9-23)
[2017-05-02 01:09] LABS: SALICYLATE < 5.0 MG/DL (15-30)
[2017-05-02 01:29] LABS: TOTAL BILIRUBIN 2.8 mg/dL (0.0-1.0)
[2017-05-02 01:30] LABS: ALKALINE PHOSPHATASE 90 IU/L (3-129)
[2017-05-02 01:32] LABS: DIRECT BILIRUBIN 1.2 mg/dL (0.0-0.3)
[2017-05-02 01:33] LABS: LIPASE 64 U/L (1.0-51.0)
[2017-05-02 04:02] LABS: ADD MEDTOX COMMENT Y; AMPHETAMINE NEGATIVE (500 ng/mL); BARBITURATES NEGATIVE (200 ng/mL); BENZODIAZEPINES PRESUMPTIVE POSITIVE (150 ng/mL); COCAINE NEGATIVE (150 ng/mL); INTERNAL CONTROLS VALID? YES; METHADONE NEGATIVE (200 ng/mL); METHAMPHETAMINE NEGATIVE (500 ng/mL); OPIATES (MORPHINE) NEGATIVE (100 ng/mL); OXYCODONE NEGATIVE (100 ng/mL); PHENCYCLIDINE NEGATIVE (25 ng/mL); PROPOXYPHENE NEGATIVE (300 ng/mL); THC CANNABINOIDS NEGATIVE (50 ng/mL); TRICYCLIC ANTIDEPRESSANTS NEGATIVE (300 ng/mL)
[2017-05-02 04:32] VITALS: BP 138/88
[2017-05-02 04:38] LABS: BENZODIAZEPINES, URINE SCREEN POSITIVE (200 ng/mL)
== END 2017-05-02 04:44 | disposition home or self-care (01) ==
LOC: EME 23:32
PROVIDERS: Emergency Medicine
DX: T39.312A Poisoning by propionic acid derivatives, intentional self-harm, initial encounter (principal); T47.0X2A Poisoning by histamine H2-receptor blockers, intentional self-harm, initial encounter; F10.10 Alcohol abuse, uncomplicated; F32.9 Major depressive disorder, single episode, unspecified; I10 Essential (primary) hypertension; K74.60 Unspecified cirrhosis of liver; D61.818 Other pancytopenia; T51.0X1A Toxic effect of ethanol, accidental (unintentional), initial encounter; R74.8 Abnormal levels of other serum enzymes
CPT/HCPCS: 71010; 80048; 80076; 83690; 84999; 85027; 85610; 85730; 90837; 93005; 99281; 99285; G0480; J7030

== ENCOUNTER 2017-05-13 23:00 | Emergency (ER) | payer OTHER ==
[~2017-05-13] VITALS: Ht 167.6 cm; Wt 100.0 kg
[2017-05-13 23:08] VITALS: BP 142/76
[2017-05-15] MEDS ORDERED: KEFLEX500 MG PO (22:12)
== END 2017-05-14 03:34 | disposition left against medical advice (07) ==
LOC: EME 23:00
DX: F10.10 Alcohol abuse, uncomplicated (principal); Z53.21 Procedure and treatment not carried out due to patient leaving prior to being seen by health care provider

== ENCOUNTER 2017-05-15 21:10 | Emergency (ER) | payer OTHER ==
[~2017-05-15] VITALS: Ht 167.6 cm; Wt 103.6 kg
[2017-05-15] MEDS ORDERED: KEFLEX500 MG PO (22:12)
[2017-05-15 23:47] VITALS: BP 111/69
== END 2017-05-15 23:49 | disposition home or self-care (01) ==
LOC: EXP 21:10 → EME 21:10 → EXP 23:49
DX: S40.811A Abrasion of right upper arm, initial encounter (principal); S90.32XA Contusion of left foot, initial encounter; L03.116 Cellulitis of left lower limb; Y04.8XXA Assault by other bodily force, initial encounter; K74.60 Unspecified cirrhosis of liver; I10 Essential (primary) hypertension; Z91.5 Personal history of self-harm
CPT/HCPCS: 71010; 99281; 99283

== ENCOUNTER 2017-05-16 23:57 | Inpatient (IN) | payer OTHER ==
[~2017-05-16] VITALS: Ht 167.6 cm; Wt 98.9 kg
[2017-05-17 01:39] LABS: EOSINOPHIL (%) 5.2 % (0-5); EOSINOPHIL COUNT 0.3 K/uL (0-0.3); HEMATOCRIT 35.4 % (38.0-50.0); IMMATURE GRANULOCYTE (%) 0.4 % (0.0-0.7); INSTRUMENT ABS NEUTROPHIL CT 2.3 K/uL; MCH 35.7 PG (29.0-34.0); MCHC 34.7 G/DL (30.0-36.0); MCV 102.6 FL (86-99); MEAN PLAT.VOLUME 8.7 uM^3 (9.0-12.4); MONOCYTE (%) 7.9 % (3-12); MONOCYTE COUNT 0.4 K/uL (0-0.8); NEUTROPHIL (%) 46.6 % (45-76); NEUTROPHIL COUNT 2.3 K/uL (1.8-6.4); PLATELET COUNT 85 K/uL (156-360); RBC DIS.WIDTH-CV 15.3 % (11.8-14.6); RBC DIS.WIDTH-SD 57.1 % (39-53); RED BLOOD COUNT 3.45 M/uL (4.00-5.50)
[2017-05-17 01:54] LABS: ALKALINE PHOSPHATASE 76 IU/L (3-129); ANION GAP 13 MEQ/L (2-14); CHLORIDE 107 MEQ/L (99-109); DIRECT BILIRUBIN 0.8 mg/dL (0.0-0.3); GFR ESTIMATE (CALCULATED) > 59 mL/min/; GLUCOSE 101 mg/dL (70-99); POTASSIUM 3.4 MEQ/L (3.7-5.4); SAMPLE HEMOLYSIS CHECK 0; SAMPLE ICTERIC CHECK 0; SAMPLE LIPEMIA CHECK 0; SODIUM 141 MEQ/L (136-147); TOTAL BILIRUBIN 2.3 MG/DL (0.0-1.0); UREA NITROGEN (BUN) 5 mg/dL (9-23)
[2017-05-17 01:58] LABS: TROP-I INTERPRETATION NEGATIVE; TROPONIN-I 0.01 ng/mL (0.0-0.30)
[2017-05-17 05:34] LABS: LIPASE 34 U/L (1.0-51.0); SERUM ETHYL ALCOHOL 269 mg/dL
[2017-05-17 06:30] VITALS: BP 131/69
[2017-05-17 08:32] VITALS: BP 117/65
[2017-05-17] MEDS ORDERED: KEFLEX500 MG PO (12:41)
[2017-05-17 14:22] LABS: AMPHETAMINES QUANT VALUE 0 NG/ML; BARBITUATES QUANT VALUE 0 NG/ML; BENZODIAZEPINES, URINE SCREEN POSITIVE (200 ng/mL); MARIJUANA QUANT VALUE 0 NG/ML; OPIATES QUANTITATIVE VALUE 0 NG/ML; PHENCYCLIDINE QUANT VALUE 0 NG/ML
[2017-05-17 15:57] VITALS: BP 124/77
[2017-05-18 01:24] VITALS: BP 142/82
[2017-05-18 06:42] LABS: HEMATOCRIT 35.6 % (38.0-50.0); MCH 37.4 PG (29.0-34.0); MCHC 35.7 G/DL (30.0-36.0); MCV 104.7 FL (86-99); MEAN PLAT.VOLUME 9.5 uM^3 (9.0-12.4); PLATELET COUNT 73 K/uL (156-360); RBC DIS.WIDTH-CV 15.8 % (11.8-14.6); RBC DIS.WIDTH-SD 59.6 % (39-53); WHITE BLOOD COUNT 2.7 K/uL (4.1-10.2)
[2017-05-18 07:13] LABS: ALKALINE PHOSPHATASE 67 IU/L (3-129); ANION GAP 8 MEQ/L (2-14); CHLORIDE 105 MEQ/L (99-109); GFR ESTIMATE (CALCULATED) > 59 mL/min/; GLUCOSE 99 mg/dL (70-99); MAGNESIUM 1.6 mg/dl (1.3-2.7); POTASSIUM 3.5 MEQ/L (3.7-5.4); SAMPLE HEMOLYSIS CHECK 0; SAMPLE ICTERIC CHECK 1; SAMPLE LIPEMIA CHECK 0; SODIUM 140 MEQ/L (136-147); UREA NITROGEN (BUN) 7 mg/dL (9-23)
[2017-05-18 07:15] LABS: TOTAL BILIRUBIN 3.1 MG/DL (0.0-1.0)
[2017-05-18 07:54] LABS: ADD MIUA? NO; BILIRUBIN NEGATIVE; BLOOD NEGATIVE; COLOR YELLOW ((YELLOW)); GLUCOSE (STRIP) NEGATIVE; KETONES NEGATIVE; LEUKOCYTES NEGATIVE; NITRITE NEGATIVE; PROTEIN (STRIP) NEGATIVE; SPECIFIC GRAVITY 1.038 (1.000-1.030); UCUL ADDED? NO; UROBILINOGEN 0.2 MG/DL (0.2-1.0)
[2017-05-18 07:55] VITALS: BP 124/76
[2017-05-18 15:45] VITALS: BP 140/73
[2017-05-18 23:13] LABS: METH RESISTANT S AUREUS PCR POSITIVE (NEGATIVE)
[2017-05-18 23:15] LABS: PROBE CHECK PASS
[2017-05-18 23:18] VITALS: BP 129/69
[2017-05-19 07:29] VITALS: BP 136/72
[2017-05-19 09:27] LABS: MCH 36.1 PG (29.0-34.0); MCHC 34.3 G/DL (30.0-36.0); MCV 105.5 FL (86-99); MEAN PLAT.VOLUME 9.3 uM^3 (9.0-12.4); PLATELET COUNT 92 K/uL (156-360); RBC DIS.WIDTH-SD 61.2 % (39-53); RED BLOOD COUNT 3.79 M/uL (4.00-5.50); WHITE BLOOD COUNT 2.7 K/uL (4.1-10.2)
[2017-05-19 10:03] LABS: ANION GAP 10 MEQ/L (2-14); CHLORIDE 105 MEQ/L (99-109); GFR ESTIMATE (CALCULATED) > 59 mL/min/; GLUCOSE 136 mg/dL (70-99); POTASSIUM 3.7 MEQ/L (3.7-5.4); SAMPLE HEMOLYSIS CHECK 0; SAMPLE ICTERIC CHECK 0; SAMPLE LIPEMIA CHECK 0; SODIUM 140 MEQ/L (136-147); UREA NITROGEN (BUN) 8 mg/dL (9-23)
[2017-05-19 11:04] LABS: VANCOMYCIN, TROUGH 8.3 MCG/ML (10-20)
[2017-05-19 15:48] VITALS: BP 114/57
[2017-05-19 23:27] VITALS: BP 146/86
[2017-05-20 06:05] LABS: EOSINOPHIL (%) 6.1 % (0-5); EOSINOPHIL COUNT 0.2 K/uL (0-0.3); HEMATOCRIT 37.7 % (38.0-50.0); IMMATURE GRANULOCYTE (%) 0.5 % (0.0-0.7); INSTRUMENT ABS NEUTROPHIL CT 1.7 K/uL; LYMPHOCYTE COUNT 1.4 K/uL (1.0-2.8); MCH 37.4 PG (29.0-34.0); MCHC 35.3 G/DL (30.0-36.0); MCV 105.9 FL (86-99); MEAN PLAT.VOLUME 9.5 uM^3 (9.0-12.4); MONOCYTE (%) 8.5 % (3-12); MONOCYTE COUNT 0.3 K/uL (0-0.8); NEUTROPHIL (%) 46.2 % (45-76); NEUTROPHIL COUNT 1.7 K/uL (1.8-6.4); PLATELET COUNT 79 K/uL (156-360); RED BLOOD COUNT 3.56 M/uL (4.00-5.50); WHITE BLOOD COUNT 3.8 K/uL (4.1-10.2)
[2017-05-20 06:23] LABS: ANION GAP 7 MEQ/L (2-14); CHLORIDE 107 MEQ/L (99-109); GFR ESTIMATE (CALCULATED) > 59 mL/min/; POTASSIUM 3.7 MEQ/L (3.7-5.4); SAMPLE HEMOLYSIS CHECK 0; SAMPLE ICTERIC CHECK 0; SAMPLE LIPEMIA CHECK 0; SODIUM 139 MEQ/L (136-147); UREA NITROGEN (BUN) 9 mg/dL (9-23)
[2017-05-20 06:24] LABS: GLUCOSE 88 mg/dL (70-99)
[2017-05-20 07:58] VITALS: BP 136/70
[2017-05-20 16:09] VITALS: BP 126/88
[2017-05-20 22:50] VITALS: BP 121/64
[2017-05-21 07:29] VITALS: BP 127/60
[2017-05-21 08:45] LABS: HEMATOCRIT 39.8 % (38.0-50.0); MCH 37.3 PG (29.0-34.0); MCHC 35.2 G/DL (30.0-36.0); MCV 106.1 FL (86-99); MEAN PLAT.VOLUME 9.2 uM^3 (9.0-12.4); PLATELET COUNT 84 K/uL (156-360); RBC DIS.WIDTH-CV 16.6 % (11.8-14.6); RBC DIS.WIDTH-SD 63.9 % (39-53); RED BLOOD COUNT 3.75 M/uL (4.00-5.50); WHITE BLOOD COUNT 3.6 K/uL (4.1-10.2)
[2017-05-21] MEDS ORDERED: DOXYCYCLINE HY100 MG PO (10:00)
[2017-05-21] MEDS ORDERED: THERAGRAN1 TABLET PO (10:00)
== END 2017-05-21 14:18 | DRG 602 ==
LOC: EME 23:57 → EDOF 05-17 03:41 → 5EAST 05-17 04:21 → EDOF 05-17 04:21 → 5EAST 05-17 06:14
PROVIDERS: Emergency Medicine; Hospitalist; Internal Medicine; Internal Medicine Infectious Disease; Physician Assistant Medical
DX: L03.115 Cellulitis of right lower limb (principal); J96.01 Acute respiratory failure with hypoxia; B95.62 Methicillin resistant Staphylococcus aureus infection as the cause of diseases classified elsewhere; D61.818 Other pancytopenia; F10.220 Alcohol dependence with intoxication, uncomplicated; F10.239 Alcohol dependence with withdrawal, unspecified; E87.6 Hypokalemia; J98.11 Atelectasis; K70.31 Alcoholic cirrhosis of liver with ascites; K72.90 Hepatic failure, unspecified without coma; K76.6 Portal hypertension; R45.851 Suicidal ideations; E88.09 Other disorders of plasma-protein metabolism, not elsewhere classified; B35.6 Tinea cruris; G47.33 Obstructive sleep apnea (adult) (pediatric); I10 Essential (primary) hypertension; S80.811A Abrasion, right lower leg, initial encounter; W19.XXXA Unspecified fall, initial encounter; S82.891D Other fracture of right lower leg, subsequent encounter for closed fracture with routine healing; F19.10 Other psychoactive substance abuse, uncomplicated; F33.9 Major depressive disorder, recurrent, unspecified; F60.7 Dependent personality disorder; F41.9 Anxiety disorder, unspecified; Z59.0 Homelessness; Z68.35 Body mass index [BMI] 35.0-35.9, adult; Z87.891 Personal history of nicotine dependence; Z80.1 Family history of malignant neoplasm of trachea, bronchus and lung; Z91.5 Personal history of self-harm
CPT/HCPCS: 71010; 71275; 73610; 80048; 80053; 80076; 80202; 80306 90; 81003; 82140; 83605; 83690; 83735; 84484; 85025; 85027; 87040; 87070; 87075; 87076; 87077; 87147; 87186; 87205; 87641; 94799; 99202; 99281; 99284; G0480; J0690; J1644; J3370; J3411; J3475; J3480; J7030

== ENCOUNTER 2017-05-21 14:08 | Inpatient (IN) | payer OTHER ==
[~2017-05-21] VITALS: Ht 167.6 cm; Wt 98.9 kg
[2017-05-21 14:29] VITALS: BP 152/85
[2017-05-21 14:30] VITALS: BP 152/85
[2017-05-22 07:47] VITALS: BP 151/86
[2017-05-22 10:27] VITALS: BP 169/95
[2017-05-22 15:38] VITALS: BP 151/82
[2017-05-23 07:04] VITALS: BP 129/59
[2017-05-23] MEDS ORDERED: LEXAPRO20 MG PO (09:45)
[2017-05-23] MEDS ORDERED: ACAMPROSATE CA333 MG PO (09:45)
[2017-05-23] MEDS ORDERED: DOXYCYCLINE HY100 MG PO (09:45)
[2017-05-23] MEDS ORDERED: AMLODIPINE BESYL5 MG PO (09:45)
== END 2017-05-23 12:09 | disposition home or self-care (01) | DRG 881 ==
LOC: 1WEST 14:08
DX: F43.21 Adjustment disorder with depressed mood (principal); F10.20 Alcohol dependence, uncomplicated; Z59.0 Homelessness; Z56.0 Unemployment, unspecified; S82.401D Unspecified fracture of shaft of right fibula, subsequent encounter for closed fracture with routine healing

== ENCOUNTER 2017-05-27 20:13 | Emergency (ER) | payer OTHER ==
[~2017-05-27] VITALS: Ht 167.6 cm; Wt 104.0 kg
[~2017-05-27 20:13] MED LIST changes: +ACAMPROSATE CA333 MG PO; +LEXAPRO20 MG PO
[2017-05-27 21:35] LABS: HEMATOCRIT 37.4 % (38.0-50.0); MCH 36.5 PG (29.0-34.0); MCHC 35.6 G/DL (30.0-36.0); MCV 102.7 FL (86-99); MEAN PLAT.VOLUME 8.7 uM^3 (9.0-12.4); PLATELET COUNT 79 K/uL (156-360); RBC DIS.WIDTH-SD 56.8 % (39-53); RED BLOOD COUNT 3.64 M/uL (4.00-5.50)
[2017-05-27 21:51] LABS: ANION GAP 12 MEQ/L (2-14); CHLORIDE 106 MEQ/L (99-109); POTASSIUM 3.5 MEQ/L (3.7-5.4); SAMPLE HEMOLYSIS CHECK 0; SAMPLE ICTERIC CHECK 0; SAMPLE LIPEMIA CHECK 0; SODIUM 139 MEQ/L (136-147)
[2017-05-27 21:52] LABS: ADD MIUA? YES; BILIRUBIN NEGATIVE; BLOOD SMALL; COLOR STRAW ((YELLOW)); GLUCOSE (STRIP) NEGATIVE; KETONES NEGATIVE; LEUKOCYTES NEGATIVE; NITRITE NEGATIVE; PROTEIN (STRIP) NEGATIVE; SPECIFIC GRAVITY 1.003 (1.000-1.030); UROBILINOGEN 0.2 MG/DL (0.2-1.0)
[2017-05-27 21:53] LABS: BACTERIA NONE SEEN /HPF; EPITHELIAL CELLS RARE /HPF; MUCUS TRACE /LPF; RED BLOOD CELLS 0-5 /HPF (0-5); UCUL ADDED? NO; WHITE BLOOD CELLS 0-5 /HPF (0-5)
[2017-05-27 21:58] LABS: ALKALINE PHOSPHATASE 99 IU/L (3-129); GFR ESTIMATE (CALCULATED) > 59 mL/min/; GLUCOSE 99 mg/dL (70-99); SERUM ETHYL ALCOHOL 325 mg/dL; UREA NITROGEN (BUN) 7 mg/dL (9-23)
[2017-05-27 22:01] LABS: ADD MEDTOX COMMENT Y; AMPHETAMINE NEGATIVE (500 ng/mL); BARBITURATES NEGATIVE (200 ng/mL); BENZODIAZEPINES PRESUMPTIVE POSITIVE (150 ng/mL); COCAINE NEGATIVE (150 ng/mL); INTERNAL CONTROLS VALID? YES; METHADONE NEGATIVE (200 ng/mL); METHAMPHETAMINE NEGATIVE (500 ng/mL); OPIATES (MORPHINE) NEGATIVE (100 ng/mL); OXYCODONE NEGATIVE (100 ng/mL); PHENCYCLIDINE NEGATIVE (25 ng/mL); PROPOXYPHENE NEGATIVE (300 ng/mL); THC CANNABINOIDS NEGATIVE (50 ng/mL); TRICYCLIC ANTIDEPRESSANTS NEGATIVE (300 ng/mL)
[2017-05-27 22:25] LABS: BENZODIAZEPINES, URINE SCREEN POSITIVE (200 ng/mL)
[2017-05-28 09:26] VITALS: BP 126/77
== END 2017-05-28 09:29 | disposition home or self-care (01) ==
LOC: EME → EDBD 20:13 → EME 05-28 09:29
PROVIDERS: Emergency Medicine
DX: F10.129 Alcohol abuse with intoxication, unspecified (principal); F32.9 Major depressive disorder, single episode, unspecified; S00.81XA Abrasion of other part of head, initial encounter; W01.198A Fall on same level from slipping, tripping and stumbling with subsequent striking against other object, initial encounter; Y93.01 Activity, walking, marching and hiking; Y92.488 Other paved roadways as the place of occurrence of the external cause; I10 Essential (primary) hypertension
CPT/HCPCS: 70450; 70486; 80053; 81003; 84999; 85027; 90839; 99281; 99285; G0480

== ENCOUNTER 2017-05-29 22:29 | Emergency (ER) | payer OTHER ==
[~2017-05-29] VITALS: Ht 167.6 cm; Wt 104.9 kg
[2017-05-29 23:30] LABS: HEMATOCRIT 35.4 % (38.0-50.0); MCH 35.4 PG (29.0-34.0); MCHC 34.5 G/DL (30.0-36.0); MCV 102.6 FL (86-99); MEAN PLAT.VOLUME 9.6 uM^3 (9.0-12.4); PLATELET COUNT 75 K/uL (156-360); RBC DIS.WIDTH-SD 56.8 % (39-53); RED BLOOD COUNT 3.45 M/uL (4.00-5.50); WHITE BLOOD COUNT 4.1 K/uL (4.1-10.2)
[2017-05-29 23:38] LABS: CHLORIDE 106 mEq/L (99-109); POTASSIUM 3.3 mEq/L (3.7-5.4); SODIUM 141 mEq/L (136-147)
[2017-05-29 23:40] LABS: GLUCOSE 101 mg/dL (70-99)
[2017-05-29 23:42] LABS: ANION GAP 14 MEQ/L (2-14); TOTAL BILIRUBIN 2.8 mg/dL (0.0-1.0)
[2017-05-29 23:43] LABS: SERUM ETHYL ALCOHOL 302 mg/dL
[2017-05-29 23:44] LABS: ALKALINE PHOSPHATASE 73 IU/L (3-129); GFR ESTIMATE (CALCULATED) > 59 mL/min/
[2017-05-29 23:45] LABS: UREA NITROGEN (BUN) 4 mg/dL (9-23)
[2017-05-29 23:48] LABS: LIPASE 31 U/L (1.0-51.0)
[2017-05-30 09:29] VITALS: BP 123/80
== END 2017-05-30 09:48 | disposition home or self-care (01) ==
LOC: EME 22:29
PROVIDERS: Emergency Medicine
DX: F10.229 Alcohol dependence with intoxication, unspecified (principal); Y90.8 Blood alcohol level of 240 mg/100 ml or more; R45.851 Suicidal ideations; F32.9 Major depressive disorder, single episode, unspecified; I10 Essential (primary) hypertension; Z59.0 Homelessness
CPT/HCPCS: 80053; 81003; 83690; 85027; 90839; 99281; 99285; G0480

== ENCOUNTER 2017-05-31 00:22 | Inpatient (IN) | payer OTHER ==
[~2017-05-31] VITALS: Ht 167.6 cm; Wt 104.5 kg
[2017-05-31 01:37] LABS: HEMATOCRIT 34.2 % (38.0-50.0); MCH 36.2 PG (29.0-34.0); MCHC 34.8 G/DL (30.0-36.0); MEAN PLAT.VOLUME 9.8 uM^3 (9.0-12.4); PLATELET COUNT 62 K/uL (156-360); RBC DIS.WIDTH-CV 15.1 % (11.8-14.6); RBC DIS.WIDTH-SD 57.9 % (39-53); RED BLOOD COUNT 3.29 M/uL (4.00-5.50); WHITE BLOOD COUNT 4.9 K/uL (4.1-10.2)
[2017-05-31 01:50] LABS: CHLORIDE 110 mEq/L (99-109); POTASSIUM 3.5 mEq/L (3.7-5.4); SODIUM 143 mEq/L (136-147)
[2017-05-31 01:52] LABS: GLUCOSE 104 mg/dL (70-99)
[2017-05-31 01:53] LABS: ANION GAP 9 MEQ/L (2-14)
[2017-05-31 01:55] LABS: SERUM ETHYL ALCOHOL 273 mg/dL
[2017-05-31 01:56] LABS: GFR ESTIMATE (CALCULATED) > 59 mL/min/
[2017-05-31 01:57] LABS: UREA NITROGEN (BUN) 6 mg/dL (9-23)
[2017-05-31 08:56] LABS: AMPHETAMINE NEGATIVE (500 ng/mL); BARBITURATES NEGATIVE (200 ng/mL); BENZODIAZEPINES PRESUMPTIVE POSITIVE (150 ng/mL); COCAINE NEGATIVE (150 ng/mL); INTERNAL CONTROLS VALID? YES; METHADONE NEGATIVE (200 ng/mL); METHAMPHETAMINE NEGATIVE (500 ng/mL); OPIATES (MORPHINE) NEGATIVE (100 ng/mL); OXYCODONE NEGATIVE (100 ng/mL); PHENCYCLIDINE NEGATIVE (25 ng/mL); PROPOXYPHENE NEGATIVE (300 ng/mL); THC CANNABINOIDS NEGATIVE (50 ng/mL); TRICYCLIC ANTIDEPRESSANTS NEGATIVE (300 ng/mL)
[2017-05-31 08:57] LABS: ADD MEDTOX COMMENT Y
[2017-05-31 09:16] LABS: BENZODIAZEPINES, URINE SCREEN POSITIVE (200 ng/mL)
[2017-05-31 10:12] LABS: CHLORIDE 106 mEq/L (99-109); POTASSIUM 3.8 mEq/L (3.7-5.4); SODIUM 142 mEq/L (136-147)
[2017-05-31 10:13] LABS: MAGNESIUM 1.5 mg/dL (1.3-2.7)
[2017-05-31 10:16] LABS: ANION GAP 12 MEQ/L (2-14)
[2017-05-31 10:17] LABS: GLUCOSE 183 mg/dL (70-99)
[2017-05-31 10:18] LABS: ALKALINE PHOSPHATASE 127 IU/L (3-129); GFR ESTIMATE (CALCULATED) > 59 mL/min/
[2017-05-31 10:19] LABS: UREA NITROGEN (BUN) 6 mg/dL (9-23)
[2017-05-31 15:22] VITALS: BP 148/89
[2017-05-31 16:15] VITALS: BP 148/80
[2017-06-01 00:47] VITALS: BP 141/78
[2017-06-01 06:34] LABS: ALKALINE PHOSPHATASE 85 IU/L (3-129); ANION GAP 6 MEQ/L (2-14); CHLORIDE 103 MEQ/L (99-109); GFR ESTIMATE (CALCULATED) > 59 mL/min/; GLUCOSE 121 mg/dL (70-99); POTASSIUM 3.7 MEQ/L (3.7-5.4); SAMPLE HEMOLYSIS CHECK 0; SAMPLE ICTERIC CHECK 0; SAMPLE LIPEMIA CHECK 0; SODIUM 138 MEQ/L (136-147); UREA NITROGEN (BUN) 10 mg/dL (9-23)
[2017-06-01 06:35] LABS: TOTAL BILIRUBIN 2.5 MG/DL (0.0-1.0)
[2017-06-01 08:00] VITALS: BP 136/80
[2017-06-01 17:03] VITALS: BP 193/83
[2017-06-01 23:30] VITALS: BP 137/73
[2017-06-02 07:51] VITALS: BP 137/75
== END 2017-06-02 14:49 | disposition home or self-care (01) | DRG 190 ==
LOC: EME 00:22 → EDOF 07:50 → 5EAST 07:50 → ENRESERV 07:57 → 5EAST 15:14
PROVIDERS: Emergency Medicine; Student in an Organized Health Care Education/Training Program
DX: J44.0 Chronic obstructive pulmonary disease with (acute) lower respiratory infection (principal); J18.9 Pneumonia, unspecified organism; J98.11 Atelectasis; R09.02 Hypoxemia; G47.33 Obstructive sleep apnea (adult) (pediatric); I10 Essential (primary) hypertension; E87.6 Hypokalemia; F10.20 Alcohol dependence, uncomplicated; K76.6 Portal hypertension; K70.30 Alcoholic cirrhosis of liver without ascites; R45.851 Suicidal ideations; Z59.0 Homelessness; Z76.5 Malingerer [conscious simulation]; Z91.5 Personal history of self-harm; F10.220 Alcohol dependence with intoxication, uncomplicated; Y90.8 Blood alcohol level of 240 mg/100 ml or more; F60.7 Dependent personality disorder; D61.818 Other pancytopenia
CPT/HCPCS: 71010; 71275; 80048; 80053; 81003; 83605; 83690; 83735; 84999; 85027; 85379; 87040; 87070; 87205; 90839; 94640; 94799; 99202; 99281; 99285; G0480; J1100; J2543; J7040; J7050

== ENCOUNTER 2017-06-05 02:05 | Emergency (ER) | payer OTHER ==
[~2017-06-05] VITALS: Ht 167.6 cm; Wt 98.3 kg
[2017-06-05 02:48] LABS: EOSINOPHIL (%) 5.9 % (0-5); EOSINOPHIL COUNT 0.3 K/uL (0-0.3); HEMATOCRIT 35.9 % (38.0-50.0); IMMATURE GRANULOCYTE (%) 0.4 % (0.0-0.7); INSTRUMENT ABS NEUTROPHIL CT 2.2 K/uL; LYMPHOCYTE COUNT 1.8 K/uL (1.0-2.8); MCH 36.3 PG (29.0-34.0); MCHC 34.5 G/DL (30.0-36.0); MEAN PLAT.VOLUME 8.6 uM^3 (9.0-12.4); MONOCYTE (%) 10.6 % (3-12); MONOCYTE COUNT 0.5 K/uL (0-0.8); NEUTROPHIL (%) 45.6 % (45-76); NEUTROPHIL COUNT 2.2 K/uL (1.8-6.4); PLATELET COUNT 57 K/uL (156-360); RBC DIS.WIDTH-CV 15.6 % (11.8-14.6); RBC DIS.WIDTH-SD 59.8 % (39-53); RED BLOOD COUNT 3.42 M/uL (4.00-5.50); WHITE BLOOD COUNT 4.9 K/uL (4.1-10.2)
[2017-06-05 03:03] LABS: CHLORIDE 104 mEq/L (99-109); POTASSIUM 3.1 mEq/L (3.7-5.4); SODIUM 136 mEq/L (136-147)
[2017-06-05 03:05] LABS: GLUCOSE 98 mg/dL (70-99)
[2017-06-05 03:06] LABS: ANION GAP 8 MEQ/L (2-14)
[2017-06-05 03:08] LABS: ALKALINE PHOSPHATASE 118 IU/L (3-129); SERUM ETHYL ALCOHOL 125 mg/dL
[2017-06-05 03:09] LABS: GFR ESTIMATE (CALCULATED) > 59 mL/min/; TOTAL BILIRUBIN 2.5 mg/dL (0.0-1.0)
[2017-06-05 03:10] LABS: DIRECT BILIRUBIN 1.2 mg/dL (0.0-0.3); UREA NITROGEN (BUN) 11 mg/dL (9-23)
[2017-06-05 03:12] LABS: LIPASE 52 U/L (1.0-51.0); TROP-I INTERPRETATION NEGATIVE; TROPONIN-I < 0.01 ng/mL (0.0-0.30)
[2017-06-05 05:02] LABS: ADD MEDTOX COMMENT Y; AMPHETAMINE NEGATIVE (500 ng/mL); BARBITURATES NEGATIVE (200 ng/mL); BENZODIAZEPINES PRESUMPTIVE POSITIVE (150 ng/mL); COCAINE NEGATIVE (150 ng/mL); INTERNAL CONTROLS VALID? YES; METHADONE NEGATIVE (200 ng/mL); METHAMPHETAMINE NEGATIVE (500 ng/mL); OPIATES (MORPHINE) NEGATIVE (100 ng/mL); OXYCODONE NEGATIVE (100 ng/mL); PHENCYCLIDINE NEGATIVE (25 ng/mL); PROPOXYPHENE NEGATIVE (300 ng/mL); THC CANNABINOIDS NEGATIVE (50 ng/mL); TRICYCLIC ANTIDEPRESSANTS NEGATIVE (300 ng/mL)
[2017-06-05 05:33] LABS: TROP-I INTERPRETATION NEGATIVE; TROPONIN-I 0.02 ng/mL (0.0-0.30)
[2017-06-05] MEDS ORDERED: LIBRIUM25 MG PO (06:02)
[2017-06-05 06:05] LABS: BENZODIAZEPINES, URINE SCREEN POSITIVE (200 ng/mL)
[2017-06-05 06:33] VITALS: BP 114/68
== END 2017-06-05 06:35 | disposition home or self-care (01) ==
LOC: EME → EDBD 02:05 → EME 06:35
PROVIDERS: Emergency Medicine
DX: R07.9 Chest pain, unspecified (principal); F10.20 Alcohol dependence, uncomplicated; K85.90 Acute pancreatitis without necrosis or infection, unspecified; Y90.6 Blood alcohol level of 120-199 mg/100 ml; Z86.73 Personal history of transient ischemic attack (TIA), and cerebral infarction without residual deficits
CPT/HCPCS: 71010; 80048; 80076; 83690; 84484; 84999; 85025; 93005; 99281; 99284; G0480

== ENCOUNTER 2017-06-07 00:25 | Emergency (ER) | payer OTHER ==
[~2017-06-07] VITALS: Ht 167.6 cm; Wt 102.2 kg
[2017-06-07 02:32] LABS: HEMATOCRIT 37.8 % (38.0-50.0); MCH 36.2 PG (29.0-34.0); MCHC 34.7 G/DL (30.0-36.0); MCV 104.4 FL (86-99); PLATELET COUNT 67 K/uL (156-360); RBC DIS.WIDTH-CV 15.5 % (11.8-14.6); RBC DIS.WIDTH-SD 59.5 % (39-53); RED BLOOD COUNT 3.62 M/uL (4.00-5.50)
[2017-06-07 02:46] LABS: CHLORIDE 108 mEq/L (99-109); POTASSIUM 3.5 mEq/L (3.7-5.4); SODIUM 139 mEq/L (136-147)
[2017-06-07 02:47] LABS: GLUCOSE 95 mg/dL (70-99)
[2017-06-07 02:49] LABS: ANION GAP 10 MEQ/L (2-14)
[2017-06-07 02:51] LABS: GFR ESTIMATE (CALCULATED) > 59 mL/min/; SERUM ETHYL ALCOHOL 194 mg/dL; TOTAL BILIRUBIN 2.7 mg/dL (0.0-1.0)
[2017-06-07 02:52] LABS: ALKALINE PHOSPHATASE 93 IU/L (3-129); UREA NITROGEN (BUN) 9 mg/dL (9-23)
[2017-06-07 02:54] LABS: DIRECT BILIRUBIN 1.3 mg/dL (0.0-0.3)
[2017-06-07 02:55] LABS: LIPASE 44 U/L (1.0-51.0)
[2017-06-07 07:33] VITALS: BP 126/68
== END 2017-06-07 07:33 | disposition home or self-care (01) ==
LOC: EME 00:25
PROVIDERS: Emergency Medicine
DX: F10.129 Alcohol abuse with intoxication, unspecified (principal); F32.9 Major depressive disorder, single episode, unspecified; K80.20 Calculus of gallbladder without cholecystitis without obstruction; K74.60 Unspecified cirrhosis of liver; K76.6 Portal hypertension; Y90.6 Blood alcohol level of 120-199 mg/100 ml
CPT/HCPCS: 76705; 80048; 80076; 83690; 85027; 90839; 99281; 99284; G0480

== ENCOUNTER 2017-06-07 22:15 | Emergency (ER) | payer OTHER ==
[~2017-06-07] VITALS: Ht 167.6 cm; Wt 93.1 kg
[2017-06-07 23:07] LABS: CHLORIDE 105 mEq/L (99-109); POTASSIUM 3.7 mEq/L (3.7-5.4); SODIUM 137 mEq/L (136-147)
[2017-06-07 23:09] LABS: GLUCOSE 93 mg/dL (70-99)
[2017-06-07 23:10] LABS: ANION GAP 11 MEQ/L (2-14)
[2017-06-07 23:12] LABS: SERUM ETHYL ALCOHOL 248 mg/dL
[2017-06-07 23:13] LABS: GFR ESTIMATE (CALCULATED) > 59 mL/min/
[2017-06-07 23:14] LABS: UREA NITROGEN (BUN) 11 mg/dL (9-23)
[2017-06-07 23:16] LABS: LIPASE 47 U/L (1.0-51.0)
[2017-06-07 23:19] LABS: ALKALINE PHOSPHATASE 120 IU/L (3-129)
[2017-06-07 23:26] LABS: MCH 37.3 PG (29.0-34.0); MCHC 35.6 G/DL (30.0-36.0); MEAN PLAT.VOLUME 9.9 uM^3 (9.0-12.4); PLATELET COUNT 69 K/uL (156-360); RBC DIS.WIDTH-CV 15.7 % (11.8-14.6); RBC DIS.WIDTH-SD 60.1 % (39-53); RED BLOOD COUNT 3.43 M/uL (4.00-5.50); WHITE BLOOD COUNT 4.5 K/uL (4.1-10.2)
[2017-06-08 05:19] VITALS: BP 108/70
== END 2017-06-08 05:20 | disposition home or self-care (01) ==
LOC: EME 22:15
PROVIDERS: Emergency Medicine
DX: F10.129 Alcohol abuse with intoxication, unspecified (principal); F32.9 Major depressive disorder, single episode, unspecified
CPT/HCPCS: 80053; 83690; 85027; 90839; 99281; 99285; G0480

== ENCOUNTER 2017-06-08 22:45 | Emergency (ER) | payer OTHER ==
[~2017-06-08] VITALS: Ht 167.6 cm; Wt 93.1 kg
[2017-06-09 01:15] VITALS: BP 112/69
== END 2017-06-09 01:30 | disposition home or self-care (01) ==
LOC: EME 22:45
DX: F32.9 Major depressive disorder, single episode, unspecified (principal); F10.10 Alcohol abuse, uncomplicated
CPT/HCPCS: 99281; 99283

== ENCOUNTER 2017-06-09 23:55 | Emergency (ER) | payer OTHER ==
[~2017-06-09] VITALS: Ht 167.6 cm; Wt 100.2 kg
[2017-06-10 03:06] VITALS: BP 132/81
== END 2017-06-10 03:06 | disposition home or self-care (01) ==
LOC: EME 23:55
DX: F10.10 Alcohol abuse, uncomplicated (principal); F32.9 Major depressive disorder, single episode, unspecified; Z59.0 Homelessness
CPT/HCPCS: 99281; 99283

== ENCOUNTER 2017-06-11 22:54 | Emergency (ER) | payer OTHER ==
[~2017-06-11] VITALS: Ht 167.6 cm; Wt 97.6 kg
[2017-06-12 00:04] LABS: HEMATOCRIT 36.2 % (38.0-50.0); MCH 35.8 PG (29.0-34.0); MCHC 34.5 G/DL (30.0-36.0); MCV 103.7 FL (86-99); MEAN PLAT.VOLUME 9.4 uM^3 (9.0-12.4); PLATELET COUNT 62 K/uL (156-360); RBC DIS.WIDTH-CV 14.6 % (11.8-14.6); RBC DIS.WIDTH-SD 55.9 % (39-53); RED BLOOD COUNT 3.49 M/uL (4.00-5.50); WHITE BLOOD COUNT 4.4 K/uL (4.1-10.2)
[2017-06-12 00:16] LABS: CHLORIDE 106 mEq/L (99-109); POTASSIUM 3.6 mEq/L (3.7-5.4); SODIUM 139 mEq/L (136-147)
[2017-06-12 00:19] LABS: GLUCOSE 101 mg/dL (70-99)
[2017-06-12 00:20] LABS: ANION GAP 9 MEQ/L (2-14); TOTAL BILIRUBIN 2.1 mg/dL (0.0-1.0)
[2017-06-12 00:22] LABS: ALKALINE PHOSPHATASE 127 IU/L (3-129); GFR ESTIMATE (CALCULATED) > 59 mL/min/; SERUM ETHYL ALCOHOL 252 mg/dL
[2017-06-12 00:23] LABS: UREA NITROGEN (BUN) 6 mg/dL (9-23)
[2017-06-12 02:23] LABS: ADD MIUA? NO; BILIRUBIN NEGATIVE; BLOOD NEGATIVE; COLOR STRAW ((YELLOW)); GLUCOSE (STRIP) NEGATIVE; KETONES NEGATIVE; LEUKOCYTES NEGATIVE; NITRITE NEGATIVE; PROTEIN (STRIP) NEGATIVE; SPECIFIC GRAVITY 1.004 (1.000-1.030); UROBILINOGEN 0.2 MG/DL (0.2-1.0)
[2017-06-12 02:34] LABS: ADD MEDTOX COMMENT Y; AMPHETAMINE NEGATIVE (500 ng/mL); BARBITURATES NEGATIVE (200 ng/mL); BENZODIAZEPINES PRESUMPTIVE POSITIVE (150 ng/mL); COCAINE NEGATIVE (150 ng/mL); INTERNAL CONTROLS VALID? YES; METHADONE NEGATIVE (200 ng/mL); METHAMPHETAMINE NEGATIVE (500 ng/mL); OPIATES (MORPHINE) NEGATIVE (100 ng/mL); OXYCODONE NEGATIVE (100 ng/mL); PHENCYCLIDINE NEGATIVE (25 ng/mL); PROPOXYPHENE NEGATIVE (300 ng/mL); THC CANNABINOIDS NEGATIVE (50 ng/mL); TRICYCLIC ANTIDEPRESSANTS NEGATIVE (300 ng/mL)
[2017-06-12 04:14] LABS: BENZODIAZEPINES QUANT VALUE 0 NG/ML; BENZODIAZEPINES, URINE SCREEN Negative (200 ng/mL)
[2017-06-12 07:15] VITALS: BP 111/58
== END 2017-06-12 07:36 | disposition home or self-care (01) ==
LOC: EME 22:54
PROVIDERS: Emergency Medicine
DX: F33.9 Major depressive disorder, recurrent, unspecified (principal); R45.851 Suicidal ideations; F10.129 Alcohol abuse with intoxication, unspecified; F19.10 Other psychoactive substance abuse, uncomplicated; I10 Essential (primary) hypertension; D64.9 Anemia, unspecified; Z86.73 Personal history of transient ischemic attack (TIA), and cerebral infarction without residual deficits
CPT/HCPCS: 80053; 81003; 84999; 85027; 90837; 99281; 99285; G0480

== ENCOUNTER 2017-06-15 23:24 | Inpatient (IN) | payer OTHER ==
[~2017-06-15] VITALS: Ht 165.1 cm; Wt 99.4 kg
[2017-06-15 23:50] LABS: HEMATOCRIT 38.5 % (38.0-50.0); MCH 36.5 PG (29.0-34.0); MCHC 35.3 G/DL (30.0-36.0); MCV 103.2 FL (86-99); MEAN PLAT.VOLUME 8.5 uM^3 (9.0-12.4); PLATELET COUNT 66 K/uL (156-360); RBC DIS.WIDTH-CV 14.9 % (11.8-14.6); RBC DIS.WIDTH-SD 56.8 % (39-53); RED BLOOD COUNT 3.73 M/uL (4.00-5.50); WHITE BLOOD COUNT 5.7 K/uL (4.1-10.2)
[2017-06-16 00:03] LABS: CHLORIDE 106 mEq/L (99-109); POTASSIUM 3.8 mEq/L (3.7-5.4); SODIUM 140 mEq/L (136-147)
[2017-06-16 00:04] LABS: GLUCOSE 102 mg/dL (70-99)
[2017-06-16 00:06] LABS: ANION GAP 10 MEQ/L (2-14)
[2017-06-16 00:07] LABS: SERUM ETHYL ALCOHOL 348 mg/dL
[2017-06-16 00:08] LABS: GFR ESTIMATE (CALCULATED) > 59 mL/min/
[2017-06-16 00:09] LABS: UREA NITROGEN (BUN) 8 mg/dL (9-23)
[2017-06-16 03:13] LABS: EOSINOPHIL (%) 5.3 % (0-5); EOSINOPHIL COUNT 0.2 K/uL (0-0.3); HEMATOCRIT 34.5 % (38.0-50.0); IMMATURE GRANULOCYTE (%) 0.3 % (0.0-0.7); INSTRUMENT ABS NEUTROPHIL CT 1.6 K/uL; LYMPHOCYTE COUNT 1.6 K/uL (1.0-2.8); MCHC 34.8 G/DL (30.0-36.0); MCV 103.6 FL (86-99); MEAN PLAT.VOLUME 9.6 uM^3 (9.0-12.4); MONOCYTE (%) 7.2 % (3-12); MONOCYTE COUNT 0.3 K/uL (0-0.8); NEUTROPHIL (%) 43.5 % (45-76); NEUTROPHIL COUNT 1.6 K/uL (1.8-6.4); PLATELET COUNT 54 K/uL (156-360); RBC DIS.WIDTH-CV 14.8 % (11.8-14.6); RBC DIS.WIDTH-SD 56.5 % (39-53); RED BLOOD COUNT 3.33 M/uL (4.00-5.50); WHITE BLOOD COUNT 3.8 K/uL (4.1-10.2)
[2017-06-16 03:23] LABS: CHLORIDE 107 mEq/L (99-109); POTASSIUM 3.5 mEq/L (3.7-5.4); SODIUM 139 mEq/L (136-147)
[2017-06-16 03:25] LABS: GLUCOSE 90 mg/dL (70-99)
[2017-06-16 03:26] LABS: ANION GAP 10 MEQ/L (2-14)
[2017-06-16 03:29] LABS: GFR ESTIMATE (CALCULATED) > 59 mL/min/
[2017-06-16 03:30] LABS: UREA NITROGEN (BUN) 7 mg/dL (9-23)
[2017-06-16 03:50] LABS: ALKALINE PHOSPHATASE 143 IU/L (3-129)
[2017-06-16 03:52] LABS: TOTAL BILIRUBIN 2.6 mg/dL (0.0-1.0)
[2017-06-16 03:53] LABS: DIRECT BILIRUBIN 1.3 mg/dL (0.0-0.3)
[2017-06-16 04:59] VITALS: BP 130/81
[2017-06-16 06:23] LABS: TOTAL BILIRUBIN 2.1 mg/dL (0.0-1.0)
[2017-06-16 06:24] LABS: ALKALINE PHOSPHATASE 122 IU/L (3-129)
[2017-06-16 06:26] LABS: DIRECT BILIRUBIN 1.1 mg/dL (0.0-0.3)
[2017-06-16 07:51] VITALS: BP 106/59
[2017-06-16 10:59] VITALS: BP 133/66
[2017-06-16 15:41] VITALS: BP 129/61
[2017-06-16 19:53] VITALS: BP 115/57
[2017-06-16 23:31] VITALS: BP 137/83
[2017-06-17 06:27] LABS: EOSINOPHIL COUNT 0.2 K/uL (0-0.3); HEMATOCRIT 36.4 % (38.0-50.0); INSTRUMENT ABS NEUTROPHIL CT 1.2 K/uL; LYMPHOCYTE COUNT 0.8 K/uL (1.0-2.8); MCH 35.9 PG (29.0-34.0); MCHC 34.3 G/DL (30.0-36.0); MCV 104.6 FL (86-99); MONOCYTE (%) 11.2 % (3-12); MONOCYTE COUNT 0.3 K/uL (0-0.8); NEUTROPHIL (%) 49.2 % (45-76); NEUTROPHIL COUNT 1.2 K/uL (1.8-6.4); RBC DIS.WIDTH-CV 15.1 % (11.8-14.6); RBC DIS.WIDTH-SD 58.4 % (39-53); RED BLOOD COUNT 3.48 M/uL (4.00-5.50); WHITE BLOOD COUNT 2.5 K/uL (4.1-10.2)
[2017-06-17 06:59] LABS: ANION GAP 7 MEQ/L (2-14); CHLORIDE 106 MEQ/L (99-109); GFR ESTIMATE (CALCULATED) > 59 mL/min/; GLUCOSE 88 mg/dL (70-99); POTASSIUM 3.3 MEQ/L (3.7-5.4); SAMPLE HEMOLYSIS CHECK 0; SAMPLE ICTERIC CHECK 1; SAMPLE LIPEMIA CHECK 0; SODIUM 141 MEQ/L (136-147); UREA NITROGEN (BUN) 8 mg/dL (9-23)
[2017-06-17 07:00] LABS: IMM.PLATELET FRACTION 1.7 (1-7); MEAN PLAT.VOLUME 9.2 uM^3 (9.0-12.4); PLAT.SUFFICIENCY DECREASED; PLATELET COUNT 48 K/uL (156-360)
[2017-06-17 07:36] VITALS: BP 152/85
[2017-06-17 13:02] LABS: GFR ESTIMATE (CALCULATED) > 59 mL/min/
[2017-06-17 15:45] VITALS: BP 151/88
[2017-06-17 23:46] VITALS: BP 128/69
[2017-06-18 06:06] LABS: EOSINOPHIL (%) 9.1 % (0-5); EOSINOPHIL COUNT 0.2 K/uL (0-0.3); HEMATOCRIT 36.3 % (38.0-50.0); IMMATURE GRANULOCYTE (%) 0.4 % (0.0-0.7); INSTRUMENT ABS NEUTROPHIL CT 1.2 K/uL; LYMPHOCYTE COUNT 0.9 K/uL (1.0-2.8); MCH 37.7 PG (29.0-34.0); MCHC 35.8 G/DL (30.0-36.0); MCV 105.2 FL (86-99); MONOCYTE (%) 8.3 % (3-12); MONOCYTE COUNT 0.2 K/uL (0-0.8); NEUTROPHIL (%) 46.3 % (45-76); NEUTROPHIL COUNT 1.2 K/uL (1.8-6.4); RBC DIS.WIDTH-CV 15.2 % (11.8-14.6); RBC DIS.WIDTH-SD 58.6 % (39-53); RED BLOOD COUNT 3.45 M/uL (4.00-5.50); WHITE BLOOD COUNT 2.7 K/uL (4.1-10.2)
[2017-06-18 06:30] LABS: IMM.PLATELET FRACTION 1.5 (1-7); MEAN PLAT.VOLUME 10.7 uM^3 (9.0-12.4); PLATELET COUNT 50 K/uL (156-360)
[2017-06-18 07:24] LABS: ANION GAP 9 MEQ/L (2-14); CHLORIDE 107 MEQ/L (99-109); GFR ESTIMATE (CALCULATED) > 59 mL/min/; GLUCOSE 86 mg/dL (70-99); POTASSIUM 3.9 MEQ/L (3.7-5.4); SAMPLE HEMOLYSIS CHECK 1; SAMPLE ICTERIC CHECK 1; SAMPLE LIPEMIA CHECK 0; SODIUM 141 MEQ/L (136-147); UREA NITROGEN (BUN) 6 mg/dL (9-23)
[2017-06-18 08:03] VITALS: BP 133/69
[2017-06-18 11:48] VITALS: BP 148/81
[2017-06-18 15:32] VITALS: BP 116/74
[2017-06-18 19:09] VITALS: BP 158/87
[2017-06-18 23:16] VITALS: BP 119/61
[2017-06-19 02:59] VITALS: BP 133/70
[2017-06-19 06:52] LABS: EOSINOPHIL (%) 8.1 % (0-5); EOSINOPHIL COUNT 0.2 K/uL (0-0.3); HEMATOCRIT 38.1 % (38.0-50.0); IMMATURE GRANULOCYTE (%) 1.1 % (0.0-0.7); INSTRUMENT ABS NEUTROPHIL CT 1.3 K/uL; MCHC 33.9 G/DL (30.0-36.0); MCV 106.4 FL (86-99); MONOCYTE (%) 9.5 % (3-12); MONOCYTE COUNT 0.3 K/uL (0-0.8); NEUTROPHIL (%) 45.6 % (45-76); NEUTROPHIL COUNT 1.3 K/uL (1.8-6.4); RBC DIS.WIDTH-CV 15.6 % (11.8-14.6); RBC DIS.WIDTH-SD 60.4 % (39-53); RED BLOOD COUNT 3.58 M/uL (4.00-5.50); WHITE BLOOD COUNT 2.8 K/uL (4.1-10.2)
[2017-06-19 07:15] VITALS: BP 152/90
[2017-06-19 07:29] LABS: IMM.PLATELET FRACTION 1.6 (1-7); PLAT.SUFFICIENCY DECREASED; PLATELET COUNT 46 K/uL (156-360)
[2017-06-19 07:34] LABS: ALKALINE PHOSPHATASE 84 IU/L (3-129); ANION GAP 8 MEQ/L (2-14); CHLORIDE 106 MEQ/L (99-109); GFR ESTIMATE (CALCULATED) > 59 mL/min/; GLUCOSE 80 mg/dL (70-99); POTASSIUM 3.7 MEQ/L (3.7-5.4); SAMPLE HEMOLYSIS CHECK 0; SAMPLE ICTERIC CHECK 1; SAMPLE LIPEMIA CHECK 0; SODIUM 139 MEQ/L (136-147); TOTAL BILIRUBIN 3.1 MG/DL (0.0-1.0); UREA NITROGEN (BUN) 9 mg/dL (9-23)
[2017-06-19 07:41] LABS: MEAN PLAT.VOLUME 8.7 uM^3 (9.0-12.4)
[2017-06-19] MEDS ORDERED: Thiamine,Vitamin B1 PO (09:41)
[2017-06-19] MEDS ORDERED: FOLIC ACID1 MG PO (09:41)
[2017-06-19] MEDS ORDERED: LEXAPRO10 MG PO (09:42)
== END 2017-06-19 13:09 | disposition home or self-care (01) | DRG 603 ==
LOC: EME 23:24 → EDOF 06-16 02:30 → 3EAST 06-16 02:30 → ENRESERV 06-16 02:31 → 3EAST 06-16 04:22
PROVIDERS: Hospitalist; Internal Medicine
PROC: HZ2ZZZZ Detoxification Services for Substance Abuse Treatment (ICD-10-PCS; principal; 2017-06-16)
DX: L03.115 Cellulitis of right lower limb (principal); D61.818 Other pancytopenia; F10.24 Alcohol dependence with alcohol-induced mood disorder; D68.9 Coagulation defect, unspecified; L97.219 Non-pressure chronic ulcer of right calf with unspecified severity; R78.81 Bacteremia; F05 Delirium due to known physiological condition; F33.9 Major depressive disorder, recurrent, unspecified; R45.851 Suicidal ideations; E87.6 Hypokalemia; I87.2 Venous insufficiency (chronic) (peripheral); B95.62 Methicillin resistant Staphylococcus aureus infection as the cause of diseases classified elsewhere; T51.0X2A Toxic effect of ethanol, intentional self-harm, initial encounter; Y90.8 Blood alcohol level of 240 mg/100 ml or more; F10.229 Alcohol dependence with intoxication, unspecified; Z56.0 Unemployment, unspecified; Z59.0 Homelessness; K70.30 Alcoholic cirrhosis of liver without ascites; D53.9 Nutritional anemia, unspecified; Z80.1 Family history of malignant neoplasm of trachea, bronchus and lung; Z83.0 Family history of human immunodeficiency virus [HIV] disease; Z86.73 Personal history of transient ischemic attack (TIA), and cerebral infarction without residual deficits; Z87.891 Personal history of nicotine dependence; Z91.5 Personal history of self-harm; Z91.14 Patient's other noncompliance with medication regimen; Z86.14 Personal history of Methicillin resistant Staphylococcus aureus infection
CPT/HCPCS: 71020; 80048; 80053; 80076; 80202; 82565; 83605; 83735; 85025; 85027; 87040; 87070; 87075; 87076; 87077; 87147; 87186; 87205; 93971; 99281; 99285; A6260; G0480; J0690; J3370; J3411; J7030

== ENCOUNTER 2017-06-21 00:49 | Emergency (ER) | payer OTHER ==
[~2017-06-21] VITALS: Ht 167.6 cm; Wt 102.4 kg
[~2017-06-21 00:49] MED LIST changes: +LEXAPRO10 MG PO
[2017-06-21 03:27] LABS: HEMATOCRIT 37.5 % (38.0-50.0); MCH 36.2 PG (29.0-34.0); MCHC 34.1 G/DL (30.0-36.0); MCV 105.9 FL (86-99); MEAN PLAT.VOLUME 9.2 uM^3 (9.0-12.4); PLATELET COUNT 57 K/uL (156-360); RBC DIS.WIDTH-CV 15.5 % (11.8-14.6); RBC DIS.WIDTH-SD 60.4 % (39-53); RED BLOOD COUNT 3.54 M/uL (4.00-5.50); WHITE BLOOD COUNT 4.1 K/uL (4.1-10.2)
[2017-06-21 03:40] LABS: CHLORIDE 106 mEq/L (99-109); POTASSIUM 3.7 mEq/L (3.7-5.4); SODIUM 137 mEq/L (136-147)
[2017-06-21 03:43] LABS: GLUCOSE 94 mg/dL (70-99)
[2017-06-21 03:44] LABS: ANION GAP 10 MEQ/L (2-14)
[2017-06-21 03:45] LABS: SERUM ETHYL ALCOHOL 195 mg/dL; TOTAL BILIRUBIN 2.7 mg/dL (0.0-1.0)
[2017-06-21 03:46] LABS: ALKALINE PHOSPHATASE 75 IU/L (3-129); GFR ESTIMATE (CALCULATED) > 59 mL/min/
[2017-06-21 03:47] LABS: UREA NITROGEN (BUN) 6 mg/dL (9-23)
[2017-06-21 07:19] VITALS: BP 108/63
== END 2017-06-21 10:42 | disposition home or self-care (01) ==
LOC: EME 00:49
PROVIDERS: Emergency Medicine
DX: F10.129 Alcohol abuse with intoxication, unspecified (principal); Y90.6 Blood alcohol level of 120-199 mg/100 ml; W19.XXXA Unspecified fall, initial encounter; L89.899 Pressure ulcer of other site, unspecified stage
CPT/HCPCS: 70450; 71010; 80053; 85027; G0480

== ENCOUNTER 2017-06-21 20:04 | Emergency (ER) | payer OTHER ==
[~2017-06-21] VITALS: Ht 167.6 cm; Wt 102.0 kg
[2017-06-22 01:10] VITALS: BP 110/82
== END 2017-06-22 01:10 | disposition home or self-care (01) ==
LOC: EME 20:04
DX: F10.129 Alcohol abuse with intoxication, unspecified (principal); I10 Essential (primary) hypertension; K74.60 Unspecified cirrhosis of liver; Z86.73 Personal history of transient ischemic attack (TIA), and cerebral infarction without residual deficits; Z86.14 Personal history of Methicillin resistant Staphylococcus aureus infection
CPT/HCPCS: 99281; 99282

== ENCOUNTER 2017-06-22 21:23 | Inpatient (IN) | payer OTHER ==
[~2017-06-22] VITALS: Ht 167.6 cm; Wt 98.0 kg
[2017-06-23] VITALS (7 sets, daily range): BP systolic 40–163; BP diastolic 58–91
[2017-06-23 00:15] LABS: HEMATOCRIT 34.8 % (38.0-50.0); MCH 36.5 PG (29.0-34.0); MCHC 35.6 G/DL (30.0-36.0); MCV 102.4 FL (86-99); MEAN PLAT.VOLUME 9.4 uM^3 (9.0-12.4); PLATELET COUNT 58 K/uL (156-360); RBC DIS.WIDTH-CV 14.7 % (11.8-14.6); RBC DIS.WIDTH-SD 55.4 % (39-53)
[2017-06-23 00:29] LABS: CHLORIDE 106 mEq/L (99-109); POTASSIUM 3.8 mEq/L (3.7-5.4)
[2017-06-23 00:30] LABS: SODIUM 140 mEq/L (136-147)
[2017-06-23 00:31] LABS: GLUCOSE 95 mg/dL (70-99)
[2017-06-23 00:33] LABS: ANION GAP 14 MEQ/L (2-14)
[2017-06-23 00:35] LABS: GFR ESTIMATE (CALCULATED) > 59 mL/min/
[2017-06-23 00:36] LABS: UREA NITROGEN (BUN) 4 mg/dL (9-23)
[2017-06-23 01:33] LABS: SERUM ETHYL ALCOHOL 258 mg/dL
[2017-06-23 03:29] LABS: METH RESISTANT S AUREUS PCR NEGATIVE (NEGATIVE)
[2017-06-23 03:33] LABS: PROBE CHECK PASS; SPECIMEN PROCESSING CONTROL PASS
[2017-06-24 03:08] VITALS: BP 110/56
[2017-06-24] MEDS ORDERED: ENDOCET 5-3251 EACH PO (08:35)
[2017-06-24 08:43] VITALS: BP 160/96
[2017-06-24 15:20] VITALS: BP 158/90
[2017-06-24 19:51] VITALS: BP 122/70
[2017-06-25] MEDS ORDERED: LIBRIUM25 MG PO (04:28)
== END 2017-06-24 20:17 | disposition home or self-care (01) | DRG 83 ==
LOC: EME → EDBD 21:23 → EDOF 23:08 → ENRESERV 23:18 → 3EAST 06-23 01:33
PROVIDERS: Emergency Medicine; Surgery
PROC: 0HQ0XZZ Repair Scalp Skin, External Approach (ICD-10-PCS; principal; 2017-06-22)
PROC: HZ2ZZZZ Detoxification Services for Substance Abuse Treatment (ICD-10-PCS; principal; 2017-06-22)
DX: S06.5X9A Traumatic subdural hemorrhage with loss of consciousness of unspecified duration, initial encounter (principal); S01.01XA Laceration without foreign body of scalp, initial encounter; W19.XXXA Unspecified fall, initial encounter; F10.229 Alcohol dependence with intoxication, unspecified; Y90.8 Blood alcohol level of 240 mg/100 ml or more; K70.30 Alcoholic cirrhosis of liver without ascites; D69.6 Thrombocytopenia, unspecified; D68.4 Acquired coagulation factor deficiency; I10 Essential (primary) hypertension; F32.9 Major depressive disorder, single episode, unspecified; Z91.5 Personal history of self-harm; Z87.891 Personal history of nicotine dependence; Z86.14 Personal history of Methicillin resistant Staphylococcus aureus infection; Z86.73 Personal history of transient ischemic attack (TIA), and cerebral infarction without residual deficits
CPT/HCPCS: 70450; 71010; 71250; 72125; 74176; 80048; 80053; 83605; 83735; 85027; 87040; 87641; 94760; 94799; 99281; 99282; 99285; G0480; J2060; J2543; J3411; J3475; J7030; J7050

== ENCOUNTER 2017-06-25 00:35 | Emergency (ER) | payer OTHER ==
[~2017-06-25] VITALS: Ht 167.6 cm; Wt 99.4 kg
[~2017-06-25 00:35] MED LIST changes: +ENDOCET 5-3251 EACH PO
[2017-06-25 01:58] LABS: EOSINOPHIL (%) 5.2 % (0-5); EOSINOPHIL COUNT 0.2 K/uL (0-0.3); HEMATOCRIT 35.1 % (38.0-50.0); IMMATURE GRANULOCYTE (%) 0.2 % (0.0-0.7); INSTRUMENT ABS NEUTROPHIL CT 2.2 K/uL; LYMPHOCYTE COUNT 1.6 K/uL (1.0-2.8); MCH 35.8 PG (29.0-34.0); MCHC 34.2 G/DL (30.0-36.0); MCV 104.8 FL (86-99); MEAN PLAT.VOLUME 10.3 uM^3 (9.0-12.4); MONOCYTE (%) 12.7 % (3-12); MONOCYTE COUNT 0.6 K/uL (0-0.8); NEUTROPHIL (%) 46.4 % (45-76); NEUTROPHIL COUNT 2.2 K/uL (1.8-6.4); PLATELET COUNT 58 K/uL (156-360); RBC DIS.WIDTH-CV 14.6 % (11.8-14.6); RBC DIS.WIDTH-SD 56.5 % (39-53); RED BLOOD COUNT 3.35 M/uL (4.00-5.50); WHITE BLOOD COUNT 4.6 K/uL (4.1-10.2)
[2017-06-25 02:17] LABS: CHLORIDE 104 mEq/L (99-109); POTASSIUM 3.6 mEq/L (3.7-5.4); SODIUM 140 mEq/L (136-147)
[2017-06-25 02:19] LABS: GLUCOSE 92 mg/dL (70-99)
[2017-06-25 02:20] LABS: ANION GAP 12 MEQ/L (2-14)
[2017-06-25 02:22] LABS: SERUM ETHYL ALCOHOL 150 mg/dL
[2017-06-25 02:23] LABS: GFR ESTIMATE (CALCULATED) > 59 mL/min/
[2017-06-25 02:24] LABS: UREA NITROGEN (BUN) 6 mg/dL (9-23)
[2017-06-25] MEDS ORDERED: LIBRIUM25 MG PO (04:28)
[2017-06-25 05:07] VITALS: BP 123/75
== END 2017-06-25 05:08 | disposition home or self-care (01) ==
LOC: EME 00:35
PROVIDERS: Emergency Medicine
DX: F10.24 Alcohol dependence with alcohol-induced mood disorder (principal); Y90.6 Blood alcohol level of 120-199 mg/100 ml; S06.5X0D Traumatic subdural hemorrhage without loss of consciousness, subsequent encounter; I10 Essential (primary) hypertension; K72.90 Hepatic failure, unspecified without coma; Z86.73 Personal history of transient ischemic attack (TIA), and cerebral infarction without residual deficits
CPT/HCPCS: 70450; 80048; 85025; 90839; 99281; 99284; G0480

== ENCOUNTER 2017-06-25 16:08 | Emergency (ER) | payer OTHER ==
[~2017-06-25] VITALS: Ht 180.3 cm; Wt 99.0 kg
[2017-06-25 17:28] LABS: EOSINOPHIL (%) 6.8 % (0-5); EOSINOPHIL COUNT 0.3 K/uL (0-0.3); HEMATOCRIT 34.1 % (38.0-50.0); INSTRUMENT ABS NEUTROPHIL CT 1.2 K/uL; LYMPHOCYTE COUNT 1.8 K/uL (1.0-2.8); MCH 36.3 PG (29.0-34.0); MCHC 34.9 G/DL (30.0-36.0); MEAN PLAT.VOLUME 9.2 uM^3 (9.0-12.4); MONOCYTE (%) 10.6 % (3-12); MONOCYTE COUNT 0.4 K/uL (0-0.8); NEUTROPHIL (%) 32.5 % (45-76); NEUTROPHIL COUNT 1.2 K/uL (1.8-6.4); PLATELET COUNT 57 K/uL (156-360); RBC DIS.WIDTH-CV 14.6 % (11.8-14.6); RBC DIS.WIDTH-SD 56.3 % (39-53); RED BLOOD COUNT 3.28 M/uL (4.00-5.50); WHITE BLOOD COUNT 3.7 K/uL (4.1-10.2)
[2017-06-25 17:49] LABS: CHLORIDE 103 mEq/L (99-109); POTASSIUM 3.6 mEq/L (3.7-5.4); SODIUM 135 mEq/L (136-147)
[2017-06-25 17:51] LABS: GLUCOSE 89 mg/dL (70-99)
[2017-06-25 17:52] LABS: ANION GAP 11 MEQ/L (2-14)
[2017-06-25 17:54] LABS: SERUM ETHYL ALCOHOL 215 mg/dL
[2017-06-25 17:55] LABS: GFR ESTIMATE (CALCULATED) > 59 mL/min/; UREA NITROGEN (BUN) 4 mg/dL (9-23)
[2017-06-25 18:35] LABS: ADD MEDTOX COMMENT Y; AMPHETAMINE NEGATIVE (500 ng/mL); BARBITURATES NEGATIVE (200 ng/mL); BENZODIAZEPINES PRESUMPTIVE POSITIVE (150 ng/mL); COCAINE NEGATIVE (150 ng/mL); INTERNAL CONTROLS VALID? YES; METHADONE NEGATIVE (200 ng/mL); METHAMPHETAMINE NEGATIVE (500 ng/mL); OPIATES (MORPHINE) NEGATIVE (100 ng/mL); OXYCODONE NEGATIVE (100 ng/mL); PHENCYCLIDINE NEGATIVE (25 ng/mL); PROPOXYPHENE NEGATIVE (300 ng/mL); THC CANNABINOIDS NEGATIVE (50 ng/mL); TRICYCLIC ANTIDEPRESSANTS NEGATIVE (300 ng/mL)
[2017-06-25 19:05] LABS: BENZODIAZEPINES, URINE SCREEN POSITIVE (200 ng/mL)
[2017-06-25 23:19] VITALS: BP 119/69
== END 2017-06-25 23:21 | disposition home or self-care (01) ==
LOC: EME 16:08
PROVIDERS: Emergency Medicine
DX: F10.129 Alcohol abuse with intoxication, unspecified (principal); F33.9 Major depressive disorder, recurrent, unspecified; R45.851 Suicidal ideations; Z76.5 Malingerer [conscious simulation]; I10 Essential (primary) hypertension; D64.9 Anemia, unspecified; Z86.73 Personal history of transient ischemic attack (TIA), and cerebral infarction without residual deficits
CPT/HCPCS: 80048 91; 84999; 85025 91; 90837; 99281; 99285; G0480

== ENCOUNTER 2017-06-27 00:44 | Emergency (ER) | payer OTHER ==
[~2017-06-27] VITALS: Ht 167.6 cm; Wt 99.0 kg
[2017-06-27 02:02] VITALS: BP 135/87
== END 2017-06-27 06:15 | disposition home or self-care (01) ==
LOC: EME 00:44
DX: F10.129 Alcohol abuse with intoxication, unspecified (principal); F32.9 Major depressive disorder, single episode, unspecified
CPT/HCPCS: 80048; 85027; 99281; 99283; G0480

== ENCOUNTER 2017-06-27 21:59 | Emergency (ER) | payer OTHER ==
[~2017-06-27] VITALS: Ht 167.6 cm; Wt 99.4 kg
[2017-06-27 22:44] LABS: HEMATOCRIT 35.4 % (38.0-50.0); MCH 35.8 PG (29.0-34.0); MCHC 34.7 G/DL (30.0-36.0); MCV 102.9 FL (86-99); MEAN PLAT.VOLUME 9.6 uM^3 (9.0-12.4); PLATELET COUNT 69 K/uL (156-360); RBC DIS.WIDTH-CV 14.3 % (11.8-14.6); RED BLOOD COUNT 3.44 M/uL (4.00-5.50)
[2017-06-27 22:53] LABS: CHLORIDE 107 mEq/L (99-109); POTASSIUM 3.8 mEq/L (3.7-5.4); SODIUM 140 mEq/L (136-147)
[2017-06-27 22:55] LABS: GLUCOSE 92 mg/dL (70-99)
[2017-06-27 22:56] LABS: ANION GAP 12 MEQ/L (2-14)
[2017-06-27 22:58] LABS: SERUM ETHYL ALCOHOL 226 mg/dL
[2017-06-27 22:59] LABS: GFR ESTIMATE (CALCULATED) > 59 mL/min/; UREA NITROGEN (BUN) 5 mg/dL (9-23)
[2017-06-27 23:50] LABS: COCAINE NEGATIVE (150 ng/mL); PHENCYCLIDINE NEGATIVE (25 ng/mL); THC CANNABINOIDS NEGATIVE (50 ng/mL)
[2017-06-27 23:51] LABS: ADD MEDTOX COMMENT Y; AMPHETAMINE NEGATIVE (500 ng/mL); BARBITURATES NEGATIVE (200 ng/mL); BENZODIAZEPINES PRESUMPTIVE POSITIVE (150 ng/mL); INTERNAL CONTROLS VALID? YES; METHADONE NEGATIVE (200 ng/mL); METHAMPHETAMINE NEGATIVE (500 ng/mL); OPIATES (MORPHINE) NEGATIVE (100 ng/mL); OXYCODONE NEGATIVE (100 ng/mL); PROPOXYPHENE NEGATIVE (300 ng/mL); TRICYCLIC ANTIDEPRESSANTS NEGATIVE (300 ng/mL)
[2017-06-28 01:14] LABS: BENZODIAZEPINES, URINE SCREEN POSITIVE (200 ng/mL)
[2017-06-28 05:27] VITALS: BP 145/83
[2017-06-29] MEDS ORDERED: BENADRYL25 MG PO (03:29)
[2017-06-29] MEDS ORDERED: PEPCID20 MG PO (03:29)
== END 2017-06-28 05:37 | disposition home or self-care (01) ==
LOC: EME 21:59
DX: F32.9 Major depressive disorder, single episode, unspecified (principal); F10.94 Alcohol use, unspecified with alcohol-induced mood disorder; Y90.7 Blood alcohol level of 200-239 mg/100 ml; Z91.5 Personal history of self-harm; I10 Essential (primary) hypertension; Z86.73 Personal history of transient ischemic attack (TIA), and cerebral infarction without residual deficits
CPT/HCPCS: 80048; 84999; 85027; 90837; 99281; 99285; G0480

== ENCOUNTER 2017-06-28 13:45 | Emergency (ER) | payer OTHER ==
[~2017-06-28] VITALS: Ht 167.6 cm; Wt 98.8 kg
[2017-06-28 17:50] VITALS: BP 118/68
[2017-06-29] MEDS ORDERED: PEPCID20 MG PO (03:29)
[2017-06-29] MEDS ORDERED: BENADRYL25 MG PO (03:29)
== END 2017-06-28 18:09 | disposition home or self-care (01) ==
LOC: EME 13:45
DX: F10.129 Alcohol abuse with intoxication, unspecified (principal); I10 Essential (primary) hypertension; K74.60 Unspecified cirrhosis of liver; Z86.73 Personal history of transient ischemic attack (TIA), and cerebral infarction without residual deficits; Z86.14 Personal history of Methicillin resistant Staphylococcus aureus infection
CPT/HCPCS: 99281; 99284

== ENCOUNTER 2017-06-29 01:10 | Emergency (ER) | payer OTHER ==
[~2017-06-29] VITALS: Ht 175.3 cm; Wt 96.3 kg
[2017-06-29] MEDS ORDERED: PEPCID20 MG PO (03:29)
[2017-06-29] MEDS ORDERED: BENADRYL25 MG PO (03:29)
[2017-06-29 03:42] VITALS: BP 119/70
== END 2017-06-29 03:45 | disposition home or self-care (01) ==
LOC: EME → EDBD 01:10 → EME 03:45
DX: L27.2 Dermatitis due to ingested food (principal); F10.99 Alcohol use, unspecified with unspecified alcohol-induced disorder; Z91.018 Allergy to other foods
CPT/HCPCS: 99281; 99285; J1100; J1200; J7030; S0028

== ENCOUNTER 2017-06-29 22:29 | Emergency (ER) | payer OTHER ==
[~2017-06-29] VITALS: Ht 167.6 cm; Wt 98.5 kg
[~2017-06-29 22:29] MED LIST changes: +BENADRYL25 MG PO
[2017-06-29 23:56] LABS: HEMATOCRIT 35.2 % (38.0-50.0); MCH 36.4 PG (29.0-34.0); MCHC 35.2 G/DL (30.0-36.0); MCV 103.2 FL (86-99); MEAN PLAT.VOLUME 9.7 uM^3 (9.0-12.4); PLATELET COUNT 66 K/uL (156-360); RBC DIS.WIDTH-CV 14.2 % (11.8-14.6); RED BLOOD COUNT 3.41 M/uL (4.00-5.50); WHITE BLOOD COUNT 3.9 K/uL (4.1-10.2)
[2017-06-30 00:05] LABS: CHLORIDE 107 mEq/L (99-109); POTASSIUM 3.6 mEq/L (3.7-5.4); SODIUM 141 mEq/L (136-147)
[2017-06-30 00:07] LABS: GLUCOSE 128 mg/dL (70-99)
[2017-06-30 00:08] LABS: ANION GAP 11 MEQ/L (2-14)
[2017-06-30 00:10] LABS: SERUM ETHYL ALCOHOL 235 mg/dL
[2017-06-30 00:11] LABS: GFR ESTIMATE (CALCULATED) > 59 mL/min/
[2017-06-30 00:12] LABS: UREA NITROGEN (BUN) 6 mg/dL (9-23)
[2017-06-30 06:25] VITALS: BP 155/92
[2017-06-30 06:33] LABS: ADD MIUA? YES; BILIRUBIN NEGATIVE; BLOOD SMALL; COLOR STRAW ((YELLOW)); GLUCOSE (STRIP) NEGATIVE; KETONES NEGATIVE; LEUKOCYTES NEGATIVE; NITRITE NEGATIVE; PROTEIN (STRIP) NEGATIVE; SPECIFIC GRAVITY 1.005 (1.000-1.030); UROBILINOGEN 0.2 MG/DL (0.2-1.0)
[2017-06-30 06:46] LABS: COCAINE NEGATIVE (150 ng/mL); METHAMPHETAMINE NEGATIVE (500 ng/mL); OPIATES (MORPHINE) NEGATIVE (100 ng/mL); PHENCYCLIDINE NEGATIVE (25 ng/mL); THC CANNABINOIDS NEGATIVE (50 ng/mL)
[2017-06-30 06:47] LABS: ADD MEDTOX COMMENT Y; AMPHETAMINE NEGATIVE (500 ng/mL); BARBITURATES NEGATIVE (200 ng/mL); BENZODIAZEPINES PRESUMPTIVE POSITIVE (150 ng/mL); INTERNAL CONTROLS VALID? YES; METHADONE NEGATIVE (200 ng/mL); OXYCODONE NEGATIVE (100 ng/mL); PROPOXYPHENE NEGATIVE (300 ng/mL); TRICYCLIC ANTIDEPRESSANTS NEGATIVE (300 ng/mL)
[2017-06-30 06:59] LABS: BACTERIA NONE SEEN /HPF; EPITHELIAL CELLS NONE SEEN /HPF; MUCUS NONE SEEN /LPF; RED BLOOD CELLS RARE /HPF (0-5); UCUL ADDED? NO; WHITE BLOOD CELLS NONE SEEN /HPF (0-5)
[2017-06-30 07:24] LABS: BENZODIAZEPINES, URINE SCREEN POSITIVE (200 ng/mL)
== END 2017-06-30 06:30 | disposition home or self-care (01) ==
LOC: EME 22:29
PROVIDERS: Emergency Medicine
DX: F10.129 Alcohol abuse with intoxication, unspecified (principal); Y90.7 Blood alcohol level of 200-239 mg/100 ml; F32.9 Major depressive disorder, single episode, unspecified; D61.818 Other pancytopenia; I10 Essential (primary) hypertension; K74.60 Unspecified cirrhosis of liver; Z59.0 Homelessness; Z91.5 Personal history of self-harm; Z86.73 Personal history of transient ischemic attack (TIA), and cerebral infarction without residual deficits; Z86.14 Personal history of Methicillin resistant Staphylococcus aureus infection
CPT/HCPCS: 80048; 81003; 83880; 84999; 85027; 90839; 99281; 99285; G0480

== ENCOUNTER 2017-06-30 22:54 | Emergency (ER) | payer OTHER ==
[~2017-06-30] VITALS: Ht 167.6 cm; Wt 100.2 kg
[2017-07-01 07:41] VITALS: BP 115/73
== END 2017-07-01 07:41 | disposition home or self-care (01) ==
LOC: EME 22:54
DX: F10.129 Alcohol abuse with intoxication, unspecified (principal); F32.9 Major depressive disorder, single episode, unspecified
CPT/HCPCS: 99281; 99283

== ENCOUNTER 2017-07-01 21:40 | Emergency (ER) | payer OTHER ==
[~2017-07-01] VITALS: Ht 167.6 cm; Wt 103.3 kg
[2017-07-01 22:02] VITALS: BP 133/77
[2017-07-02 02:48] LABS: HEMATOCRIT 36.1 % (38.0-50.0); MCH 36.1 PG (29.0-34.0); MCHC 33.8 G/DL (30.0-36.0); MCV 106.8 FL (86-99); MEAN PLAT.VOLUME 8.8 uM^3 (9.0-12.4); PLATELET COUNT 59 K/uL (156-360); RBC DIS.WIDTH-SD 58.6 % (39-53); RED BLOOD COUNT 3.38 M/uL (4.00-5.50); WHITE BLOOD COUNT 3.2 K/uL (4.1-10.2)
[2017-07-02 03:00] LABS: CHLORIDE 107 mEq/L (99-109); POTASSIUM 3.7 mEq/L (3.7-5.4); SODIUM 143 mEq/L (136-147)
[2017-07-02 03:02] LABS: GLUCOSE 97 mg/dL (70-99)
[2017-07-02 03:03] LABS: ANION GAP 11 MEQ/L (2-14)
[2017-07-02 03:05] LABS: SERUM ETHYL ALCOHOL 217 mg/dL
[2017-07-02 03:06] LABS: GFR ESTIMATE (CALCULATED) > 59 mL/min/
[2017-07-02 03:07] LABS: UREA NITROGEN (BUN) 7 mg/dL (9-23)
== END 2017-07-02 06:11 | disposition home or self-care (01) ==
LOC: EME 21:40
PROVIDERS: Emergency Medicine
DX: F32.9 Major depressive disorder, single episode, unspecified (principal); F10.129 Alcohol abuse with intoxication, unspecified; D61.818 Other pancytopenia; Y90.7 Blood alcohol level of 200-239 mg/100 ml
CPT/HCPCS: 80048; 85027; 90832; 99281; 99282; G0480

== ENCOUNTER 2017-07-03 00:49 | Emergency (ER) | payer OTHER ==
[~2017-07-03] VITALS: Ht 167.6 cm; Wt 116.8 kg
[2017-07-03 02:30] LABS: HEMATOCRIT 35.6 % (38.0-50.0); MCH 36.2 PG (29.0-34.0); MCHC 34.3 G/DL (30.0-36.0); MCV 105.6 FL (86-99); MEAN PLAT.VOLUME 8.9 uM^3 (9.0-12.4); PLATELET COUNT 63 K/uL (156-360); RBC DIS.WIDTH-CV 14.8 % (11.8-14.6); RBC DIS.WIDTH-SD 57.3 % (39-53); RED BLOOD COUNT 3.37 M/uL (4.00-5.50); WHITE BLOOD COUNT 4.1 K/uL (4.1-10.2)
[2017-07-03 02:35] LABS: CHLORIDE 110 mEq/L (99-109); INTER. NORMALIZED RATIO 2.3; POTASSIUM 3.8 mEq/L (3.7-5.4); PROTHROMBIN TIME 26.4 SEC (10.2-12.9); SODIUM 142 mEq/L (136-147)
[2017-07-03 02:37] LABS: GLUCOSE 91 mg/dL (70-99)
[2017-07-03 02:38] LABS: PTT 34.8 SEC (25-37)
[2017-07-03 02:39] LABS: ANION GAP 10 MEQ/L (2-14)
[2017-07-03 02:40] LABS: SERUM ETHYL ALCOHOL 327 mg/dL
[2017-07-03 02:41] LABS: GFR ESTIMATE (CALCULATED) > 59 mL/min/
[2017-07-03 02:42] LABS: UREA NITROGEN (BUN) 6 mg/dL (9-23)
[2017-07-03 13:12] VITALS: BP 108/68
== END 2017-07-03 13:13 | disposition home or self-care (01) ==
LOC: EME 00:49
PROVIDERS: Emergency Medicine
DX: F32.9 Major depressive disorder, single episode, unspecified (principal); R45.851 Suicidal ideations; F10.229 Alcohol dependence with intoxication, unspecified; Y90.8 Blood alcohol level of 240 mg/100 ml or more; D61.818 Other pancytopenia; I10 Essential (primary) hypertension; Z59.0 Homelessness; Z86.73 Personal history of transient ischemic attack (TIA), and cerebral infarction without residual deficits; Z91.5 Personal history of self-harm
CPT/HCPCS: 80048; 83880; 85027; 85610; 85730; 90839; 99281; 99283; G0480

== ENCOUNTER 2017-07-03 23:14 | Emergency (ER) | payer OTHER ==
[~2017-07-03] VITALS: Ht 167.6 cm; Wt 100.9 kg
[2017-07-03 23:57] LABS: CHLORIDE 107 mEq/L (99-109); POTASSIUM 3.9 mEq/L (3.7-5.4); SODIUM 143 mEq/L (136-147)
[2017-07-03 23:59] LABS: GLUCOSE 82 mg/dL (70-99)
[2017-07-04 00:01] LABS: ANION GAP 11 MEQ/L (2-14); TOTAL BILIRUBIN 2.6 mg/dL (0.0-1.0)
[2017-07-04 00:03] LABS: ALKALINE PHOSPHATASE 144 IU/L (3-129); GFR ESTIMATE (CALCULATED) > 59 mL/min/
[2017-07-04 00:04] LABS: UREA NITROGEN (BUN) 6 mg/dL (9-23)
[2017-07-04 00:06] LABS: LIPASE 87 U/L (1.0-51.0)
[2017-07-04 00:20] LABS: HEMATOCRIT 37.1 % (38.0-50.0); MCH 36.2 PG (29.0-34.0); MCHC 34.5 G/DL (30.0-36.0); MCV 104.8 FL (86-99); MEAN PLAT.VOLUME 9.2 uM^3 (9.0-12.4); PLATELET COUNT 70 K/uL (156-360); RBC DIS.WIDTH-CV 14.7 % (11.8-14.6); RBC DIS.WIDTH-SD 56.5 % (39-53); RED BLOOD COUNT 3.54 M/uL (4.00-5.50); WHITE BLOOD COUNT 3.6 K/uL (4.1-10.2)
[2017-07-04 00:47] VITALS: BP 122/68
== END 2017-07-04 00:48 | disposition home or self-care (01) ==
LOC: EME 23:14
DX: R10.11 Right upper quadrant pain (principal); F10.10 Alcohol abuse, uncomplicated; R11.0 Nausea; I10 Essential (primary) hypertension; Z86.73 Personal history of transient ischemic attack (TIA), and cerebral infarction without residual deficits
CPT/HCPCS: 80053; 81003; 83690; 85027; 99281; 99283

== ENCOUNTER 2017-07-05 23:33 | Emergency (ER) | payer OTHER ==
[~2017-07-05] VITALS: Ht 167.6 cm; Wt 102.3 kg
[2017-07-06 00:17] LABS: HEMATOCRIT 33.2 % (38.0-50.0); MCH 36.6 PG (29.0-34.0); MCHC 34.6 G/DL (30.0-36.0); MCV 105.7 FL (86-99); MEAN PLAT.VOLUME 9.9 uM^3 (9.0-12.4); PLATELET COUNT 57 K/uL (156-360); RBC DIS.WIDTH-CV 15.2 % (11.8-14.6); RBC DIS.WIDTH-SD 58.9 % (39-53); RED BLOOD COUNT 3.14 M/uL (4.00-5.50); WHITE BLOOD COUNT 4.5 K/uL (4.1-10.2)
[2017-07-06 00:31] LABS: CHLORIDE 106 mEq/L (99-109); POTASSIUM 3.7 mEq/L (3.7-5.4); SODIUM 140 mEq/L (136-147)
[2017-07-06 00:35] LABS: ANION GAP 12 MEQ/L (2-14)
[2017-07-06 00:36] LABS: SERUM ETHYL ALCOHOL 202 mg/dL
[2017-07-06 00:37] LABS: GFR ESTIMATE (CALCULATED) > 59 mL/min/
[2017-07-06 00:38] LABS: UREA NITROGEN (BUN) 9 mg/dL (9-23)
[2017-07-06 00:40] LABS: GLUCOSE 113 mg/dL (70-99)
[2017-07-06 05:30] VITALS: BP 107/64
== END 2017-07-06 06:22 | disposition home or self-care (01) ==
LOC: EME → EDBD 23:33 → EME 23:33
PROVIDERS: Emergency Medicine
DX: F10.229 Alcohol dependence with intoxication, unspecified (principal); F32.9 Major depressive disorder, single episode, unspecified; D69.6 Thrombocytopenia, unspecified; Y90.7 Blood alcohol level of 200-239 mg/100 ml
CPT/HCPCS: 80048; 81003; 85027; 90839; 99281; 99285; G0480

== ENCOUNTER 2017-07-06 21:10 | Emergency (ER) | payer OTHER ==
[~2017-07-06] VITALS: Ht 167.6 cm; Wt 96.5 kg
[2017-07-07 04:15] VITALS: BP 121/75
== END 2017-07-07 04:38 | disposition home or self-care (01) ==
LOC: EME 21:10
DX: F10.129 Alcohol abuse with intoxication, unspecified (principal); F32.9 Major depressive disorder, single episode, unspecified; Y90.8 Blood alcohol level of 240 mg/100 ml or more; Z04.6 Encounter for general psychiatric examination, requested by authority; I10 Essential (primary) hypertension; Z86.73 Personal history of transient ischemic attack (TIA), and cerebral infarction without residual deficits
CPT/HCPCS: 81003; 90837; G0480

== ENCOUNTER 2017-07-11 22:13 | Emergency (ER) | payer OTHER ==
[~2017-07-11] VITALS: Ht 167.6 cm; Wt 96.5 kg
[2017-07-12 02:55] LABS: MCH 36.1 PG (29.0-34.0); MCHC 33.8 G/DL (30.0-36.0); MCV 106.6 FL (86-99); MEAN PLAT.VOLUME 9.7 uM^3 (9.0-12.4); PLATELET COUNT 55 K/uL (156-360); RBC DIS.WIDTH-CV 14.8 % (11.8-14.6); RBC DIS.WIDTH-SD 58.6 % (39-53); RED BLOOD COUNT 3.19 M/uL (4.00-5.50)
[2017-07-12 03:07] LABS: CHLORIDE 109 mEq/L (99-109); POTASSIUM 3.7 mEq/L (3.7-5.4); SODIUM 143 mEq/L (136-147)
[2017-07-12 03:10] LABS: GLUCOSE 96 mg/dL (70-99)
[2017-07-12 03:11] LABS: ANION GAP 10 MEQ/L (2-14)
[2017-07-12 03:13] LABS: ALKALINE PHOSPHATASE 179 IU/L (3-129); SERUM ETHYL ALCOHOL 251 mg/dL
[2017-07-12 03:14] LABS: GFR ESTIMATE (CALCULATED) > 59 mL/min/
[2017-07-12 03:15] LABS: UREA NITROGEN (BUN) 10 mg/dL (9-23)
[2017-07-12 03:17] LABS: LIPASE 84 U/L (1.0-51.0)
[2017-07-12 07:25] VITALS: BP 116/70
== END 2017-07-12 07:28 | disposition home or self-care (01) ==
LOC: EME 22:13
PROVIDERS: Emergency Medicine
DX: R10.84 Generalized abdominal pain (principal); F10.129 Alcohol abuse with intoxication, unspecified; D61.818 Other pancytopenia; R79.89 Other specified abnormal findings of blood chemistry; I10 Essential (primary) hypertension; K74.60 Unspecified cirrhosis of liver; K72.90 Hepatic failure, unspecified without coma; Z86.73 Personal history of transient ischemic attack (TIA), and cerebral infarction without residual deficits
CPT/HCPCS: 80053; 83690; 85027; 99281; 99284; G0480; J7030; S0028

== ENCOUNTER 2017-07-12 23:44 | Emergency (ER) | payer OTHER ==
[~2017-07-12] VITALS: Ht 167.6 cm; Wt 102.9 kg
[2017-07-13 00:35] LABS: HEMATOCRIT 34.9 % (38.0-50.0); MCH 35.9 PG (29.0-34.0); MCHC 33.5 G/DL (30.0-36.0); MCV 107.1 FL (86-99); MEAN PLAT.VOLUME 9.9 uM^3 (9.0-12.4); PLATELET COUNT 52 K/uL (156-360); RBC DIS.WIDTH-CV 15.1 % (11.8-14.6); RBC DIS.WIDTH-SD 60.2 % (39-53); RED BLOOD COUNT 3.26 M/uL (4.00-5.50); WHITE BLOOD COUNT 2.6 K/uL (4.1-10.2)
[2017-07-13 00:50] LABS: CHLORIDE 112 mEq/L (99-109); POTASSIUM 3.6 mEq/L (3.7-5.4); SODIUM 145 mEq/L (136-147)
[2017-07-13 00:53] LABS: GLUCOSE 138 mg/dL (70-99)
[2017-07-13 00:54] LABS: ANION GAP 11 MEQ/L (2-14)
[2017-07-13 00:56] LABS: ALKALINE PHOSPHATASE 215 IU/L (3-129); GFR ESTIMATE (CALCULATED) > 59 mL/min/; SERUM ETHYL ALCOHOL 194 mg/dL
[2017-07-13 00:57] LABS: UREA NITROGEN (BUN) 8 mg/dL (9-23)
[2017-07-13 01:00] LABS: LIPASE 121 U/L (1.0-51.0)
[2017-07-13 01:06] LABS: TROP-I INTERPRETATION NEGATIVE; TROPONIN-I 0.02 ng/mL (0.0-0.30)
[2017-07-13 05:56] VITALS: BP 110/65
== END 2017-07-13 06:14 | disposition home or self-care (01) ==
LOC: EME 23:44
PROVIDERS: Emergency Medicine
DX: F10.10 Alcohol abuse, uncomplicated (principal); R10.9 Unspecified abdominal pain; G89.29 Other chronic pain; D61.818 Other pancytopenia; R79.89 Other specified abnormal findings of blood chemistry; K74.60 Unspecified cirrhosis of liver; Z86.73 Personal history of transient ischemic attack (TIA), and cerebral infarction without residual deficits; I10 Essential (primary) hypertension
CPT/HCPCS: 80053; 82140; 83690; 84484; 85027; 93005; 99281; 99285; G0480; J7030; S0028

== ENCOUNTER 2017-07-18 22:30 | Emergency (ER) | payer OTHER ==
[~2017-07-18] VITALS: Ht 167.6 cm; Wt 94.5 kg
[2017-07-19 06:14] VITALS: BP 111/71
== END 2017-07-19 06:18 | disposition home or self-care (01) ==
LOC: EME 22:30
DX: L25.8 Unspecified contact dermatitis due to other agents (principal); R19.7 Diarrhea, unspecified

== ENCOUNTER 2017-07-20 22:00 | Emergency (ER) | payer OTHER ==
[~2017-07-20] VITALS: Ht 167.6 cm; Wt 97.7 kg
[2017-07-21 00:29] LABS: HEMATOCRIT 34.4 % (38.0-50.0); MCHC 33.1 G/DL (30.0-36.0); MCV 105.5 FL (86-99); MEAN PLAT.VOLUME 9.8 uM^3 (9.0-12.4); NRBC (%) 0.5 /100 WBC (0-0); PLATELET COUNT 67 K/uL (156-360); RBC DIS.WIDTH-CV 14.5 % (11.8-14.6); RBC DIS.WIDTH-SD 56.8 % (39-53); RED BLOOD COUNT 3.26 M/uL (4.00-5.50)
[2017-07-21 00:37] LABS: CHLORIDE 107 mEq/L (99-109); POTASSIUM 3.7 mEq/L (3.7-5.4); SODIUM 138 mEq/L (136-147)
[2017-07-21 00:39] LABS: GLUCOSE 103 mg/dL (70-99)
[2017-07-21 00:40] LABS: ANION GAP 12 MEQ/L (2-14)
[2017-07-21 00:42] LABS: SERUM ETHYL ALCOHOL 320 mg/dL
[2017-07-21 00:43] LABS: GFR ESTIMATE (CALCULATED) > 59 mL/min/
[2017-07-21 00:44] LABS: UREA NITROGEN (BUN) 9 mg/dL (9-23)
[2017-07-21 04:27] VITALS: BP 118/63
== END 2017-07-21 04:33 | disposition home or self-care (01) ==
LOC: EME 22:00
PROVIDERS: Emergency Medicine
DX: F32.9 Major depressive disorder, single episode, unspecified (principal); F10.10 Alcohol abuse, uncomplicated; D61.818 Other pancytopenia; K74.60 Unspecified cirrhosis of liver; I10 Essential (primary) hypertension; Z91.5 Personal history of self-harm; Z86.14 Personal history of Methicillin resistant Staphylococcus aureus infection; Z86.73 Personal history of transient ischemic attack (TIA), and cerebral infarction without residual deficits
CPT/HCPCS: 80048; 81003; 85027; 99281; 99284; G0480

== ENCOUNTER 2017-07-21 22:44 | Emergency (ER) | payer OTHER ==
[~2017-07-21] VITALS: Ht 165.1 cm; Wt 92.0 kg
[2017-07-22 02:09] VITALS: BP 126/85
== END 2017-07-22 02:10 | disposition other institution (70) ==
LOC: EME → EDBD 22:44 → EME 07-22 02:10
DX: L30.9 Dermatitis, unspecified (principal); F10.10 Alcohol abuse, uncomplicated; Z86.73 Personal history of transient ischemic attack (TIA), and cerebral infarction without residual deficits; I10 Essential (primary) hypertension
CPT/HCPCS: 99281; 99284

== ENCOUNTER 2017-07-26 01:23 | Emergency (ER) | payer OTHER ==
[~2017-07-26] VITALS: Ht 167.6 cm; Wt 97.5 kg
[2017-07-26 02:43] LABS: EOSINOPHIL (%) 4.3 % (0-5); EOSINOPHIL COUNT 0.1 K/uL (0-0.3); HEMATOCRIT 35.2 % (38.0-50.0); IMMATURE GRANULOCYTE (%) 0.3 % (0.0-0.7); INSTRUMENT ABS NEUTROPHIL CT 1.5 K/uL; LYMPHOCYTE COUNT 1.2 K/uL (1.0-2.8); MCH 35.9 PG (29.0-34.0); MCHC 34.1 G/DL (30.0-36.0); MCV 105.4 FL (86-99); MEAN PLAT.VOLUME 9.8 uM^3 (9.0-12.4); MONOCYTE (%) 11.4 % (3-12); MONOCYTE COUNT 0.4 K/uL (0-0.8); NEUTROPHIL (%) 45.4 % (45-76); NEUTROPHIL COUNT 1.5 K/uL (1.8-6.4); PLATELET COUNT 72 K/uL (156-360); RBC DIS.WIDTH-CV 14.2 % (11.8-14.6); RBC DIS.WIDTH-SD 55.1 % (39-53); RED BLOOD COUNT 3.34 M/uL (4.00-5.50); WHITE BLOOD COUNT 3.2 K/uL (4.1-10.2)
[2017-07-26 02:51] LABS: CHLORIDE 104 mEq/L (99-109); POTASSIUM 3.6 mEq/L (3.7-5.4); SODIUM 135 mEq/L (136-147)
[2017-07-26 02:53] LABS: GLUCOSE 95 mg/dL (70-99)
[2017-07-26 02:54] LABS: ANION GAP 14 MEQ/L (2-14)
[2017-07-26 02:55] LABS: TOTAL BILIRUBIN 2.1 mg/dL (0.0-1.0)
[2017-07-26 02:56] LABS: ALKALINE PHOSPHATASE 160 IU/L (3-129)
[2017-07-26 02:57] LABS: GFR ESTIMATE (CALCULATED) > 59 mL/min/
[2017-07-26 02:58] LABS: UREA NITROGEN (BUN) 8 mg/dL (9-23)
[2017-07-26 03:00] LABS: LIPASE 97 U/L (1.0-51.0)
[2017-07-26 03:02] LABS: TROP-I INTERPRETATION NEGATIVE; TROPONIN-I < 0.01 ng/mL (0.0-0.30)
[2017-07-26 05:26] LABS: TROP-I INTERPRETATION NEGATIVE; TROPONIN-I < 0.01 ng/mL (0.0-0.30)
[2017-07-26 06:41] VITALS: BP 132/74
== END 2017-07-26 06:43 | disposition home or self-care (01) ==
LOC: EME 01:23
PROVIDERS: Emergency Medicine
DX: R07.9 Chest pain, unspecified (principal); K85.90 Acute pancreatitis without necrosis or infection, unspecified; S30.1XXA Contusion of abdominal wall, initial encounter; X58.XXXA Exposure to other specified factors, initial encounter; K80.20 Calculus of gallbladder without cholecystitis without obstruction; K42.9 Umbilical hernia without obstruction or gangrene
CPT/HCPCS: 71020; 74176; 80053; 83690; 84484; 85025; 93005; 99281; 99284

== ENCOUNTER 2017-07-27 23:18 | Emergency (ER) | payer OTHER ==
[~2017-07-27] VITALS: Ht 167.6 cm; Wt 100.2 kg
[2017-07-28 02:01] LABS: HEMATOCRIT 34.6 % (38.0-50.0); MCH 35.1 PG (29.0-34.0); MCHC 33.2 G/DL (30.0-36.0); MCV 105.5 FL (86-99); MEAN PLAT.VOLUME 9.7 uM^3 (9.0-12.4); PLATELET COUNT 61 K/uL (156-360); RBC DIS.WIDTH-CV 14.1 % (11.8-14.6); RED BLOOD COUNT 3.28 M/uL (4.00-5.50); WHITE BLOOD COUNT 3.3 K/uL (4.1-10.2)
[2017-07-28 02:14] LABS: CHLORIDE 105 mEq/L (99-109); POTASSIUM 3.8 mEq/L (3.7-5.4); SODIUM 137 mEq/L (136-147)
[2017-07-28 02:16] LABS: GLUCOSE 94 mg/dL (70-99)
[2017-07-28 02:17] LABS: ANION GAP 11 MEQ/L (2-14)
[2017-07-28 02:18] LABS: TOTAL BILIRUBIN 2.1 mg/dL (0.0-1.0)
[2017-07-28 02:19] LABS: SERUM ETHYL ALCOHOL 112 mg/dL
[2017-07-28 02:20] LABS: ALKALINE PHOSPHATASE 140 IU/L (3-129); GFR ESTIMATE (CALCULATED) > 59 mL/min/
[2017-07-28 02:21] LABS: UREA NITROGEN (BUN) 9 mg/dL (9-23)
[2017-07-28 02:23] LABS: LIPASE 70 U/L (1.0-51.0)
[2017-07-28 03:36] LABS: ADD MIUA? NO; BILIRUBIN NEGATIVE; BLOOD NEGATIVE; COLOR STRAW ((YELLOW)); GLUCOSE (STRIP) NEGATIVE; KETONES NEGATIVE; LEUKOCYTES NEGATIVE; NITRITE NEGATIVE; PROTEIN (STRIP) NEGATIVE; SPECIFIC GRAVITY 1.004 (1.000-1.030); UROBILINOGEN 0.2 MG/DL (0.2-1.0)
[2017-07-28 04:05] LABS: AMPHETAMINE NEGATIVE (500 ng/mL); BARBITURATES NEGATIVE (200 ng/mL); BENZODIAZEPINES NEGATIVE (150 ng/mL); COCAINE NEGATIVE (150 ng/mL); INTERNAL CONTROLS VALID? YES; METHADONE NEGATIVE (200 ng/mL); METHAMPHETAMINE NEGATIVE (500 ng/mL); OPIATES (MORPHINE) NEGATIVE (100 ng/mL); OXYCODONE NEGATIVE (100 ng/mL); PHENCYCLIDINE NEGATIVE (25 ng/mL); PROPOXYPHENE NEGATIVE (300 ng/mL); THC CANNABINOIDS NEGATIVE (50 ng/mL); TRICYCLIC ANTIDEPRESSANTS NEGATIVE (300 ng/mL)
[2017-07-28 04:37] VITALS: BP 118/75
== END 2017-07-28 04:40 | disposition home or self-care (01) ==
LOC: EME 23:18
PROVIDERS: Emergency Medicine
DX: K85.90 Acute pancreatitis without necrosis or infection, unspecified (principal); F10.99 Alcohol use, unspecified with unspecified alcohol-induced disorder; Y90.5 Blood alcohol level of 100-119 mg/100 ml; K42.9 Umbilical hernia without obstruction or gangrene
CPT/HCPCS: 80053; 81003; 83690; 85027; 99281; 99283; G0480

== ENCOUNTER 2017-08-06 19:28 | Emergency (ER) | payer OTHER ==
[~2017-08-06] VITALS: Ht 167.6 cm; Wt 99.1 kg
[2017-08-07 04:11] VITALS: BP 147/76
== END 2017-08-07 04:12 | disposition home or self-care (01) ==
LOC: EXP 19:28 → EME 19:28 → EXP 08-07 04:12
DX: F32.9 Major depressive disorder, single episode, unspecified (principal); F10.10 Alcohol abuse, uncomplicated; K74.60 Unspecified cirrhosis of liver; I10 Essential (primary) hypertension; Z91.5 Personal history of self-harm; Z86.14 Personal history of Methicillin resistant Staphylococcus aureus infection; Z86.73 Personal history of transient ischemic attack (TIA), and cerebral infarction without residual deficits
CPT/HCPCS: 90832; 99281; 99283

== ENCOUNTER 2017-08-07 20:04 | Emergency (ER) | payer OTHER ==
[~2017-08-07] VITALS: Ht 167.6 cm; Wt 110.0 kg
[2017-08-07 20:24] LABS: CHLORIDE 101 mEq/L (99-109); HEMATOCRIT 36.5 % (38.0-50.0); MCH 33.9 PG (29.0-34.0); MCV 99.7 FL (86-99); MEAN PLAT.VOLUME 8.8 uM^3 (9.0-12.4); PLATELET COUNT 86 K/uL (156-360); RBC DIS.WIDTH-CV 13.4 % (11.8-14.6); RBC DIS.WIDTH-SD 49.7 % (39-53); RED BLOOD COUNT 3.66 M/uL (4.00-5.50); SODIUM 134 mEq/L (136-147); WHITE BLOOD COUNT 4.2 K/uL (4.1-10.2)
[2017-08-07 20:26] LABS: GLUCOSE 110 mg/dL (70-99)
[2017-08-07 20:27] LABS: ANION GAP 11 MEQ/L (2-14)
[2017-08-07 20:28] LABS: TOTAL BILIRUBIN 2.5 mg/dL (0.0-1.0)
[2017-08-07 20:29] LABS: ALKALINE PHOSPHATASE 121 IU/L (3-129)
[2017-08-07 20:30] LABS: GFR ESTIMATE (CALCULATED) > 59 mL/min/
[2017-08-07 20:31] LABS: UREA NITROGEN (BUN) 5 mg/dL (9-23)
[2017-08-07 22:05] VITALS: BP 132/80
== END 2017-08-07 22:45 | disposition home or self-care (01) ==
LOC: EME 20:04
DX: K62.89 Other specified diseases of anus and rectum (principal); R19.7 Diarrhea, unspecified; F10.20 Alcohol dependence, uncomplicated
CPT/HCPCS: 80053; 81003; 85027; 99281; 99284

== ENCOUNTER 2017-08-11 10:15 | Emergency (ER) | payer OTHER ==
[~2017-08-11] VITALS: Ht 167.6 cm; Wt 99.1 kg
[2017-08-11 10:19] VITALS: BP 117/90
== END 2017-08-11 16:40 | disposition home or self-care (01) ==
LOC: EME → EDBD 10:15 → EME 16:40
DX: F10.229 Alcohol dependence with intoxication, unspecified (principal); S00.81XA Abrasion of other part of head, initial encounter; W18.30XA Fall on same level, unspecified, initial encounter; Y92.480 Sidewalk as the place of occurrence of the external cause; M54.2 Cervicalgia; M54.9 Dorsalgia, unspecified; I10 Essential (primary) hypertension; K74.60 Unspecified cirrhosis of liver; Z86.73 Personal history of transient ischemic attack (TIA), and cerebral infarction without residual deficits; F32.9 Major depressive disorder, single episode, unspecified
CPT/HCPCS: 99281; 99283

== ENCOUNTER 2017-08-23 19:54 | Emergency (ER) | payer OTHER ==
[~2017-08-23] VITALS: Ht 167.6 cm; Wt 99.0 kg
[2017-08-24] MEDS ORDERED: INDOCIN50 MG PO (00:03)
[2017-08-24 00:12] VITALS: BP 113/74
== END 2017-08-24 00:15 | disposition home or self-care (01) ==
LOC: EME 19:54
DX: M54.5 Low back pain (principal); M54.2 Cervicalgia; Z91.81 History of falling; F10.20 Alcohol dependence, uncomplicated
CPT/HCPCS: 99281; 99283

== ENCOUNTER 2017-09-13 18:38 | Emergency (ER) | payer OTHER ==
[~2017-09-13] VITALS: Ht 167.6 cm; Wt 98.7 kg
[~2017-09-13 18:38] MED LIST changes: +INDOCIN50 MG PO; +LIDODERM 5% P1 PATCH TD; +MOBIC7.5 MG PO
[2017-09-14 00:09] LABS: HEMATOCRIT 36.5 % (38.0-50.0); MCH 33.7 PG (29.0-34.0); MCHC 33.4 G/DL (30.0-36.0); MCV 100.8 FL (86-99); MEAN PLAT.VOLUME 9.4 uM^3 (9.0-12.4); PLATELET COUNT 67 K/uL (156-360); RBC DIS.WIDTH-CV 15.6 % (11.8-14.6); RBC DIS.WIDTH-SD 58.5 % (39-53); RED BLOOD COUNT 3.62 M/uL (4.00-5.50); WHITE BLOOD COUNT 4.1 K/uL (4.1-10.2)
[2017-09-14 00:20] LABS: CHLORIDE 106 mEq/L (99-109); POTASSIUM 3.8 mEq/L (3.7-5.4); SODIUM 138 mEq/L (136-147)
[2017-09-14 00:21] LABS: GLUCOSE 100 mg/dL (70-99)
[2017-09-14 00:23] LABS: ANION GAP 12 MEQ/L (2-14)
[2017-09-14 00:25] LABS: GFR ESTIMATE (CALCULATED) > 59 mL/min/; SERUM ETHYL ALCOHOL 217 mg/dL
[2017-09-14 00:26] LABS: UREA NITROGEN (BUN) 11 mg/dL (9-23)
[2017-09-14 03:32] LABS: ADD MIUA? NO; BILIRUBIN NEGATIVE; BLOOD NEGATIVE; COLOR YELLOW ((YELLOW)); GLUCOSE (STRIP) NEGATIVE; KETONES NEGATIVE; LEUKOCYTES NEGATIVE; NITRITE NEGATIVE; PROTEIN (STRIP) NEGATIVE; SPECIFIC GRAVITY 1.005 (1.000-1.030); UCUL ADDED? NO; UROBILINOGEN 0.2 MG/DL (0.2-1.0)
[2017-09-14 04:07] LABS: AMPHETAMINE NEGATIVE (500 ng/mL); BARBITURATES NEGATIVE (200 ng/mL); BENZODIAZEPINES NEGATIVE (150 ng/mL); COCAINE NEGATIVE (150 ng/mL); INTERNAL CONTROLS VALID? YES; METHADONE NEGATIVE (200 ng/mL); METHAMPHETAMINE NEGATIVE (500 ng/mL); OPIATES (MORPHINE) NEGATIVE (100 ng/mL); OXYCODONE NEGATIVE (100 ng/mL); PHENCYCLIDINE NEGATIVE (25 ng/mL); PROPOXYPHENE NEGATIVE (300 ng/mL); THC CANNABINOIDS NEGATIVE (50 ng/mL); TRICYCLIC ANTIDEPRESSANTS NEGATIVE (300 ng/mL)
[2017-09-14 05:12] VITALS: BP 110/68
== END 2017-09-14 05:14 | disposition home or self-care (01) ==
LOC: EME 18:38
PROVIDERS: Emergency Medicine
DX: J06.9 Acute upper respiratory infection, unspecified (principal); F10.20 Alcohol dependence, uncomplicated; F32.9 Major depressive disorder, single episode, unspecified; Y90.7 Blood alcohol level of 200-239 mg/100 ml; I10 Essential (primary) hypertension; K74.60 Unspecified cirrhosis of liver; K72.90 Hepatic failure, unspecified without coma; Z86.73 Personal history of transient ischemic attack (TIA), and cerebral infarction without residual deficits; Z91.5 Personal history of self-harm
CPT/HCPCS: 71020; 80048; 81003; 85027; 90839; 99281; 99284; G0480

== ENCOUNTER 2017-09-14 20:17 | Emergency (ER) | payer OTHER ==
[~2017-09-14] VITALS: Ht 167.6 cm; Wt 98.7 kg
[2017-09-15 01:00] VITALS: BP 122/86
== END 2017-09-15 01:23 | disposition home or self-care (01) ==
LOC: EME 20:17
DX: S70.01XA Contusion of right hip, initial encounter (principal); W18.30XA Fall on same level, unspecified, initial encounter
CPT/HCPCS: 73502; 99281; 99284

== ENCOUNTER 2017-09-15 18:56 | Emergency (ER) | payer OTHER ==
[~2017-09-15] VITALS: Ht 167.6 cm; Wt 97.5 kg
[2017-09-16 05:54] VITALS: BP 122/68
== END 2017-09-16 06:01 | disposition home or self-care (01) ==
LOC: EME 18:56
DX: F10.129 Alcohol abuse with intoxication, unspecified (principal)
CPT/HCPCS: 99281; 99284

== ENCOUNTER 2017-09-17 19:18 | Emergency (ER) | payer OTHER ==
[~2017-09-17] VITALS: Ht 167.6 cm; Wt 98.3 kg
[2017-09-17 21:23] VITALS: BP 118/78
== END 2017-09-17 21:25 | disposition home or self-care (01) ==
LOC: EME 19:18
DX: M54.5 Low back pain (principal); G89.29 Other chronic pain; I10 Essential (primary) hypertension; F41.9 Anxiety disorder, unspecified; F32.9 Major depressive disorder, single episode, unspecified

== ENCOUNTER 2017-09-18 20:37 | Emergency (ER) | payer OTHER ==
[~2017-09-18] VITALS: Ht 167.6 cm; Wt 100.0 kg
[2017-09-18 21:53] VITALS: BP 92/60
== END 2017-09-18 21:50 | disposition home or self-care (01) ==
LOC: EME 20:37
DX: F10.129 Alcohol abuse with intoxication, unspecified (principal)
CPT/HCPCS: 99281; 99283

== ENCOUNTER 2017-09-19 18:53 | Observation (INO) | payer OTHER ==
[~2017-09-19] VITALS: Ht 167.6 cm; Wt 98.9 kg
[2017-09-19 19:53] LABS: HEMATOCRIT 35.6 % (38.0-50.0); MCH 34.3 PG (29.0-34.0); MCV 100.8 FL (86-99); MEAN PLAT.VOLUME 9.7 uM^3 (9.0-12.4); PLATELET COUNT 67 K/uL (156-360); RBC DIS.WIDTH-SD 59.9 % (39-53); RED BLOOD COUNT 3.53 M/uL (4.00-5.50); WHITE BLOOD COUNT 4.5 K/uL (4.1-10.2)
[2017-09-19 20:05] LABS: CHLORIDE 102 mEq/L (99-109); POTASSIUM 4.2 mEq/L (3.7-5.4); SODIUM 136 mEq/L (136-147)
[2017-09-19 20:07] LABS: GLUCOSE 125 mg/dL (70-99)
[2017-09-19 20:09] LABS: ANION GAP 11 MEQ/L (2-14); TOTAL BILIRUBIN 2.2 mg/dL (0.0-1.0)
[2017-09-19 20:11] LABS: ALKALINE PHOSPHATASE 157 IU/L (3-129); GFR ESTIMATE (CALCULATED) > 59 mL/min/
[2017-09-19 20:12] LABS: UREA NITROGEN (BUN) 13 mg/dL (9-23)
[2017-09-19 20:14] LABS: LIPASE 123 U/L (1.0-51.0)
[2017-09-19 20:45] LABS: ADD MIUA? NO; BILIRUBIN NEGATIVE; BLOOD NEGATIVE; COLOR YELLOW ((YELLOW)); GLUCOSE (STRIP) NEGATIVE; KETONES NEGATIVE; LEUKOCYTES NEGATIVE; NITRITE NEGATIVE; PROTEIN (STRIP) NEGATIVE; SPECIFIC GRAVITY 1.006 (1.000-1.030); UCUL ADDED? NO
[2017-09-19 22:20] LABS: INTER. NORMALIZED RATIO 2.1; PROTHROMBIN TIME 23.7 SEC (10.2-12.9)
[2017-09-19 22:22] LABS: PTT 34.4 SEC (25-37)
[2017-09-20 02:33] VITALS: BP 149/81
[2017-09-20 08:03] VITALS: BP 147/77
[2017-09-20 10:05] LABS: HEMATOCRIT 37.9 % (38.0-50.0); MCH 34.6 PG (29.0-34.0); MCHC 34.6 G/DL (30.0-36.0); MEAN PLAT.VOLUME 9.9 uM^3 (9.0-12.4); PLATELET COUNT 68 K/uL (156-360); RBC DIS.WIDTH-CV 16.2 % (11.8-14.6); RBC DIS.WIDTH-SD 60.6 % (39-53); RED BLOOD COUNT 3.79 M/uL (4.00-5.50); WHITE BLOOD COUNT 2.5 K/uL (4.1-10.2)
[2017-09-20 10:28] LABS: ALKALINE PHOSPHATASE 126 IU/L (3-129); ANION GAP 8 MEQ/L (2-14); CHLORIDE 101 MEQ/L (99-109); GFR ESTIMATE (CALCULATED) > 59 mL/min/; GLUCOSE 103 mg/dL (70-99); POTASSIUM 4.1 MEQ/L (3.7-5.4); SAMPLE HEMOLYSIS CHECK 0; SAMPLE ICTERIC CHECK 1; SAMPLE LIPEMIA CHECK 0; SODIUM 136 MEQ/L (136-147); TOTAL BILIRUBIN 3.2 MG/DL (0.0-1.0); UREA NITROGEN (BUN) 11 mg/dL (9-23)
[2017-09-20 16:00] VITALS: BP 142/77
[2017-09-20 23:35] VITALS: BP 136/79
[2017-09-21 05:59] LABS: HEMATOCRIT 38.5 % (38.0-50.0); MCH 33.5 PG (29.0-34.0); MCHC 33.2 G/DL (30.0-36.0); MCV 100.8 FL (86-99); PLATELET COUNT 60 K/uL (156-360); RBC DIS.WIDTH-CV 16.2 % (11.8-14.6); RED BLOOD COUNT 3.82 M/uL (4.00-5.50); WHITE BLOOD COUNT 2.4 K/uL (4.1-10.2)
[2017-09-21 06:25] LABS: ANION GAP 8 MEQ/L (2-14); CHLORIDE 104 MEQ/L (99-109); GFR ESTIMATE (CALCULATED) > 59 mL/min/; GLUCOSE 98 mg/dL (70-99); POTASSIUM 4.1 MEQ/L (3.7-5.4); SAMPLE HEMOLYSIS CHECK 0; SAMPLE ICTERIC CHECK 1; SAMPLE LIPEMIA CHECK 0; SODIUM 137 MEQ/L (136-147); UREA NITROGEN (BUN) 14 mg/dL (9-23)
[2017-09-21 06:26] LABS: ALKALINE PHOSPHATASE 96 IU/L (3-129); TOTAL BILIRUBIN 4.5 MG/DL (0.0-1.0)
[2017-09-21 07:55] VITALS: BP 168/91
[2017-09-21 16:25] VITALS: BP 147/88
[2017-09-21 23:43] VITALS: BP 136/69
[2017-09-22 06:22] LABS: HEMATOCRIT 39.2 % (38.0-50.0); MCH 33.9 PG (29.0-34.0); MCHC 33.7 G/DL (30.0-36.0); MCV 100.8 FL (86-99); MEAN PLAT.VOLUME 10.1 uM^3 (9.0-12.4); PLATELET COUNT 68 K/uL (156-360); RBC DIS.WIDTH-SD 59.4 % (39-53); RED BLOOD COUNT 3.89 M/uL (4.00-5.50); WHITE BLOOD COUNT 2.9 K/uL (4.1-10.2)
[2017-09-22 06:51] LABS: ALKALINE PHOSPHATASE 82 IU/L (3-129); ANION GAP 8 MEQ/L (2-14); CHLORIDE 100 MEQ/L (99-109); GFR ESTIMATE (CALCULATED) > 59 mL/min/; GLUCOSE 94 mg/dL (70-99); POTASSIUM 3.8 MEQ/L (3.7-5.4); SAMPLE HEMOLYSIS CHECK 0; SAMPLE ICTERIC CHECK 1; SAMPLE LIPEMIA CHECK 0; SODIUM 133 MEQ/L (136-147); TOTAL BILIRUBIN 3.7 MG/DL (0.0-1.0); UREA NITROGEN (BUN) 11 mg/dL (9-23)
[2017-09-22 08:00] VITALS: BP 159/86
[2017-09-22 16:34] VITALS: BP 138/84
[2017-09-22 23:44] VITALS: BP 130/78
[2017-09-23 07:53] VITALS: BP 149/96
[2017-09-23] MEDS ORDERED: THIAMINE HCL100 MG PO (11:37)
[2017-09-23] MEDS ORDERED: FOLIC ACID1 MG PO (11:37)
== END 2017-09-23 12:47 | disposition home or self-care (01) ==
LOC: EME 18:53 → EDOF 09-20 00:39 → 5SOUTH 09-20 00:39 → ENRESERV 09-20 00:40 → 5SOUTH 09-20 02:13
PROVIDERS: Hospitalist; Physician Assistant Medical
DX: R10.11 Right upper quadrant pain (principal); K80.10 Calculus of gallbladder with chronic cholecystitis without obstruction; K70.30 Alcoholic cirrhosis of liver without ascites; K76.6 Portal hypertension; D69.59 Other secondary thrombocytopenia; F10.20 Alcohol dependence, uncomplicated; Z59.0 Homelessness; D68.9 Coagulation defect, unspecified; R79.89 Other specified abnormal findings of blood chemistry; R26.81 Unsteadiness on feet; R19.7 Diarrhea, unspecified; I10 Essential (primary) hypertension; Z86.73 Personal history of transient ischemic attack (TIA), and cerebral infarction without residual deficits; Z91.5 Personal history of self-harm; Z80.1 Family history of malignant neoplasm of trachea, bronchus and lung; Z91.018 Allergy to other foods
CPT/HCPCS: 76705; 78226; 80053; 81003; 83690; 85027; 85610; 85730; 99281; 99285; A9537; G0378; G8978 GP CJ; G8979 GP CI; G8980 GP CH; G8987 GO CJ; G8988 CI; G8989 CJ; J0696; J7030; J7050; S0030

== ENCOUNTER 2017-10-01 19:22 | Emergency (ER) | payer OTHER ==
[~2017-10-01] VITALS: Ht 167.6 cm; Wt 97.1 kg
[2017-10-02 02:18] VITALS: BP 104/59
== END 2017-10-02 02:21 | disposition home or self-care (01) ==
LOC: EME 19:22
DX: R10.11 Right upper quadrant pain (principal); G89.29 Other chronic pain; F10.10 Alcohol abuse, uncomplicated; K74.60 Unspecified cirrhosis of liver; I10 Essential (primary) hypertension; Z86.73 Personal history of transient ischemic attack (TIA), and cerebral infarction without residual deficits; Z86.14 Personal history of Methicillin resistant Staphylococcus aureus infection
CPT/HCPCS: 99281; 99283

== ENCOUNTER 2017-10-08 19:16 | Emergency (ER) | payer OTHER ==
[~2017-10-08] VITALS: Ht 167.6 cm; Wt 102.2 kg
[2017-10-08 21:33] LABS: HEMATOCRIT 36.4 % (38.0-50.0); MCH 34.8 PG (29.0-34.0); MCHC 34.1 G/DL (30.0-36.0); MCV 102.2 FL (86-99); MEAN PLAT.VOLUME 9.4 uM^3 (9.0-12.4); PLATELET COUNT 85 K/uL (156-360); RBC DIS.WIDTH-CV 15.4 % (11.8-14.6); RBC DIS.WIDTH-SD 59.7 % (39-53); RED BLOOD COUNT 3.56 M/uL (4.00-5.50); WHITE BLOOD COUNT 4.1 K/uL (4.1-10.2)
[2017-10-08 21:41] LABS: CHLORIDE 104 mEq/L (99-109); SODIUM 135 mEq/L (136-147)
[2017-10-08 21:43] LABS: GLUCOSE 97 mg/dL (70-99)
[2017-10-08 21:44] LABS: ANION GAP 11 MEQ/L (2-14)
[2017-10-08 21:45] LABS: TOTAL BILIRUBIN 1.6 mg/dL (0.0-1.0)
[2017-10-08 21:46] LABS: SERUM ETHYL ALCOHOL 271 mg/dL
[2017-10-08 21:47] LABS: ALKALINE PHOSPHATASE 144 IU/L (3-129); GFR ESTIMATE (CALCULATED) > 59 mL/min/
[2017-10-08 21:48] LABS: UREA NITROGEN (BUN) 10 mg/dL (9-23)
[2017-10-08 21:50] LABS: LIPASE 57 U/L (1.0-51.0)
[2017-10-09 03:08] LABS: AMPHETAMINE NEGATIVE (500 ng/mL); BARBITURATES NEGATIVE (200 ng/mL); BENZODIAZEPINES NEGATIVE (150 ng/mL); COCAINE NEGATIVE (150 ng/mL); INTERNAL CONTROLS VALID? YES; METHADONE NEGATIVE (200 ng/mL); METHAMPHETAMINE NEGATIVE (500 ng/mL); OPIATES (MORPHINE) NEGATIVE (100 ng/mL); OXYCODONE NEGATIVE (100 ng/mL); PHENCYCLIDINE NEGATIVE (25 ng/mL); PROPOXYPHENE NEGATIVE (300 ng/mL); THC CANNABINOIDS NEGATIVE (50 ng/mL); TRICYCLIC ANTIDEPRESSANTS NEGATIVE (300 ng/mL)
[2017-10-09 05:29] VITALS: BP 110/66
== END 2017-10-09 05:30 | disposition home or self-care (01) ==
LOC: EME 19:16
PROVIDERS: Emergency Medicine
DX: F10.129 Alcohol abuse with intoxication, unspecified (principal); Y90.8 Blood alcohol level of 240 mg/100 ml or more; K80.70 Calculus of gallbladder and bile duct without cholecystitis without obstruction; K76.0 Fatty (change of) liver, not elsewhere classified; R16.1 Splenomegaly, not elsewhere classified; K42.9 Umbilical hernia without obstruction or gangrene
CPT/HCPCS: 76700; 76770; 80053; 83690; 85027; G0480

== ENCOUNTER 2017-10-09 18:53 | Emergency (ER) | payer OTHER ==
[~2017-10-09] VITALS: Ht 167.6 cm; Wt 102.0 kg
[2017-10-10 01:19] VITALS: BP 111/71
== END 2017-10-10 01:19 | disposition home or self-care (01) ==
LOC: EME 18:53
DX: F10.10 Alcohol abuse, uncomplicated (principal); Z76.89 Persons encountering health services in other specified circumstances

== ENCOUNTER 2017-10-10 18:43 | Emergency (ER) | payer OTHER ==
[~2017-10-10] VITALS: Ht 167.6 cm; Wt 101.8 kg
[2017-10-10 21:34] VITALS: BP 116/80
== END 2017-10-10 21:34 | disposition home or self-care (01) ==
LOC: EME 18:43
DX: F10.10 Alcohol abuse, uncomplicated (principal); G89.29 Other chronic pain; R07.89 Other chest pain; Z59.0 Homelessness
CPT/HCPCS: 99281; 99283

== ENCOUNTER 2017-11-10 09:45 | Emergency (ER) | payer OTHER ==
[~2017-11-10] VITALS: Ht 167.6 cm; Wt 100.0 kg
[2017-11-10 10:41] LABS: HEMATOCRIT 41.6 % (38.0-50.0); HEMOGLOBIN 14.3 G/DL (12.5-16.6); MCH 34.7 PG (29.0-34.0); MCHC 34.4 G/DL (30.0-36.0); PLATELET COUNT 65 K/uL (156-360); RBC DIS.WIDTH-CV 14.3 % (11.8-14.6); RBC DIS.WIDTH-SD 53.5 % (39-53); RED BLOOD COUNT 4.12 M/uL (4.00-5.50)
[2017-11-10 10:42] LABS: ALBUMIN 3.6 g/dL (3.2-4.8); CHLORIDE 102 mEq/L (99-109); WHITE BLOOD COUNT 1.7 K/uL (4.1-10.2)
[2017-11-10 10:43] LABS: POTASSIUM 4.4 mEq/L (3.7-5.4); SODIUM 133 mEq/L (136-147)
[2017-11-10 10:45] LABS: GLUCOSE 123 mg/dL (70-99); TOTAL PROTEIN 7.9 g/dL (6.4-8.3)
[2017-11-10 10:47] LABS: TOTAL BILIRUBIN 2.8 mg/dL (0.0-1.0)
[2017-11-10 10:48] LABS: ALKALINE PHOSPHATASE 140 IU/L (3-129); CREATININE 0.7 mg/dL (0.6-1.3); GFR ESTIMATE (CALCULATED) > 59 mL/min/ (58.99-99999)
[2017-11-10 10:50] LABS: AST (GOT) 80 IU/L (2-34); UREA NITROGEN (BUN) 12 mg/dL (9-23)
[2017-11-10 10:51] LABS: ALT (GPT) 46 IU/L (3-49)
[2017-11-10 11:21] LABS: BILIRUBIN NEGATIVE; BLOOD NEGATIVE; COLOR YELLOW ((YELLOW)); GLUCOSE (STRIP) NEGATIVE; KETONES NEGATIVE; LEUKOCYTES NEGATIVE; NITRITE NEGATIVE; PROTEIN (STRIP) NEGATIVE; SPECIFIC GRAVITY 1.017 (1.000-1.030)
[2017-11-10 11:24] LABS: APPEARANCE CLEAR ((CLEAR)); UCUL ADDED? NO
[2017-11-10 13:11] LABS: LIPASE 48 U/L (1.0-51.0)
[2017-11-10] MEDS ORDERED: ZOFRAN4 MG PO (14:12)
[2017-11-10 14:28] VITALS: BP 111/70
== END 2017-11-10 14:45 | disposition home or self-care (01) ==
LOC: EME 09:45
DX: R10.9 Unspecified abdominal pain (principal); R11.2 Nausea with vomiting, unspecified; R79.89 Other specified abnormal findings of blood chemistry; D69.6 Thrombocytopenia, unspecified; F10.20 Alcohol dependence, uncomplicated; K74.60 Unspecified cirrhosis of liver; I10 Essential (primary) hypertension; Z86.73 Personal history of transient ischemic attack (TIA), and cerebral infarction without residual deficits; Z86.14 Personal history of Methicillin resistant Staphylococcus aureus infection
CPT/HCPCS: 74177; 80053; 81003; 83690; 85027; 99281; 99284; J2405; J7030

== ENCOUNTER 2017-11-11 06:45 | Inpatient (IN) | payer OTHER ==
[~2017-11-11] VITALS: Ht 167.6 cm; Wt 97.7 kg
[~2017-11-11 06:45] MED LIST changes: +ZOFRAN4 MG PO
[2017-11-11 08:06] LABS: HEMOGLOBIN 14.4 G/DL (12.5-16.6); MCH 34.2 PG (29.0-34.0); MCHC 34.3 G/DL (30.0-36.0); MCV 99.8 FL (86-99); PLATELET COUNT 57 K/uL (156-360); RBC DIS.WIDTH-CV 14.4 % (11.8-14.6); RED BLOOD COUNT 4.21 M/uL (4.00-5.50); WHITE BLOOD COUNT 1.5 K/uL (4.1-10.2)
[2017-11-11 08:20] LABS: CHLORIDE 98 mEq/L (99-109); POTASSIUM 4.4 mEq/L (3.7-5.4); SODIUM 130 mEq/L (136-147)
[2017-11-11 08:22] LABS: TROP-I INTERPRETATION NEGATIVE; TROPONIN-I < 0.01 ng/mL (0.0-0.30)
[2017-11-11 08:25] LABS: SERUM ETHYL ALCOHOL < 10 mg/dL
[2017-11-11 08:26] LABS: CREATININE 0.9 mg/dL (0.6-1.3); GFR ESTIMATE (CALCULATED) > 59 mL/min/ (58.99-99999)
[2017-11-11 08:27] LABS: UREA NITROGEN (BUN) 14 mg/dL (9-23)
[2017-11-11 08:29] LABS: LIPASE 49 U/L (1.0-51.0)
[2017-11-11 09:13] LABS: AMPHETAMINE NEGATIVE (500 ng/mL); BARBITURATES NEGATIVE (200 ng/mL); BENZODIAZEPINES NEGATIVE (150 ng/mL); BUPRENORPHINE NEGATIVE (10 ng/mL); COCAINE NEGATIVE (150 ng/mL); METHADONE NEGATIVE (200 ng/mL); METHAMPHETAMINE NEGATIVE (500 ng/mL); OPIATES (MORPHINE) NEGATIVE (100 ng/mL); OXYCODONE NEGATIVE (100 ng/mL); PHENCYCLIDINE NEGATIVE (25 ng/mL); PROPOXYPHENE NEGATIVE (300 ng/mL); THC CANNABINOIDS NEGATIVE (50 ng/mL); TRICYCLIC ANTIDEPRESSANTS NEGATIVE (300 ng/mL)
[2017-11-11 09:26] LABS: GLUCOSE 114 mg/dL (70-99)
[2017-11-11 12:07] LABS: TROP-I INTERPRETATION NEGATIVE; TROPONIN-I 0.01 ng/mL (0.0-0.30)
[2017-11-11 14:10] VITALS: BP 172/95
[2017-11-11 15:05] VITALS: BP 172/95
[2017-11-11 15:43] VITALS: BP 166/90
[2017-11-11 18:46] VITALS: BP 148/76
[2017-11-11 23:29] VITALS: BP 138/65
[2017-11-12 07:54] LABS: BASOPHIL (%) 0.4 % (0-1); EOSINOPHIL (%) 1.6 % (0-5); HEMATOCRIT 42.6 % (38.0-50.0); HEMOGLOBIN 14.4 G/DL (12.5-16.6); IMMATURE GRANULOCYTE (%) 0.8 % (0.0-0.7); LYMPHOCYTE (%) 28.9 % (15-42); LYMPHOCYTE COUNT 0.7 K/uL (1.0-2.8); MCH 33.3 PG (29.0-34.0); MCHC 33.8 G/DL (30.0-36.0); MCV 98.6 FL (86-99); MONOCYTE (%) 11.3 % (3-12); MONOCYTE COUNT 0.3 K/uL (0-0.8); NEUTROPHIL COUNT 1.5 K/uL (1.8-6.4); PLATELET COUNT 64 K/uL (156-360); RBC DIS.WIDTH-CV 14.2 % (11.8-14.6); RBC DIS.WIDTH-SD 51.8 % (39-53); RED BLOOD COUNT 4.32 M/uL (4.00-5.50); WHITE BLOOD COUNT 2.6 K/uL (4.1-10.2)
[2017-11-12 07:56] VITALS: BP 169/100
[2017-11-12 15:25] VITALS: BP 129/73
[2017-11-13 01:44] LABS: BACTERIA 2+ /HPF; EPITHELIAL CELLS 1+ /HPF; MUCUS 2+ /LPF; RED BLOOD CELLS 0-5 /HPF (0-5); WHITE BLOOD CELLS 0-5 /HPF (0-5)
[2017-11-13 01:45] LABS: AMORPHOUS URATES CRYSTALS 2+
[2017-11-13 07:53] VITALS: BP 153/77
[2017-11-13 15:16] VITALS: BP 130/67
[2017-11-14 07:32] VITALS: BP 148/85
[2017-11-14] MEDS ORDERED: AMLODIPINE BESYL5 MG PO (08:49)
[2017-11-14] MEDS ORDERED: Thiamine,Vitamin B1 PO (08:49)
[2017-11-14] MEDS ORDERED: FOLIC ACID1 MG PO (08:49)
[2017-11-14] MEDS ORDERED: ESCITALOPRAM OX10 MG PO (08:49)
== END 2017-11-14 14:10 | disposition home or self-care (01) | DRG 885 ==
LOC: EME 06:45 → 1WEST 11:48 → EDOF 11:48 → ENRESERV 14:44 → 1WEST 14:45
PROVIDERS: Emergency Medicine; Psychiatry & Neurology Psychiatry
DX: F33.2 Major depressive disorder, recurrent severe without psychotic features (principal); R45.851 Suicidal ideations; F10.21 Alcohol dependence, in remission; Z91.5 Personal history of self-harm; Z59.0 Homelessness; I10 Essential (primary) hypertension; K74.60 Unspecified cirrhosis of liver; Z86.73 Personal history of transient ischemic attack (TIA), and cerebral infarction without residual deficits; G47.9 Sleep disorder, unspecified; R06.02 Shortness of breath; R07.9 Chest pain, unspecified
CPT/HCPCS: 71046; 80048; 81015; 83690; 84484; 85025; 85027; 90839; 93005; 97150 GO; 97165 GO; 99281; 99285; G0480

== ENCOUNTER 2017-11-16 19:09 | Emergency (ER) | payer OTHER ==
[~2017-11-16] VITALS: Ht 167.6 cm; Wt 97.1 kg
[~2017-11-16 19:09] MED LIST changes: +ESCITALOPRAM OX10 MG PO
[2017-11-17 03:35] VITALS: BP 122/68
== END 2017-11-17 03:36 | disposition home or self-care (01) ==
LOC: EME 19:09
DX: F10.10 Alcohol abuse, uncomplicated (principal); F32.9 Major depressive disorder, single episode, unspecified; G89.29 Other chronic pain; R10.9 Unspecified abdominal pain; Z91.5 Personal history of self-harm; I10 Essential (primary) hypertension
CPT/HCPCS: 99281; 99283

== ENCOUNTER 2017-11-30 19:05 | Emergency (ER) | payer OTHER ==
[~2017-11-30] VITALS: Ht 167.6 cm; Wt 97.9 kg
[2017-11-30 20:15] LABS: HEMATOCRIT 39.4 % (38.0-50.0); HEMOGLOBIN 13.7 G/DL (12.5-16.6); MCH 34.1 PG (29.0-34.0); MCHC 34.8 G/DL (30.0-36.0); PLATELET COUNT 70 K/uL (156-360); RBC DIS.WIDTH-SD 49.1 % (39-53); RED BLOOD COUNT 4.02 M/uL (4.00-5.50); WHITE BLOOD COUNT 3.9 K/uL (4.1-10.2)
[2017-11-30 20:23] LABS: CHLORIDE 102 mEq/L (99-109); SODIUM 135 mEq/L (136-147)
[2017-11-30 20:25] LABS: GLUCOSE 89 mg/dL (70-99)
[2017-11-30 20:28] LABS: SERUM ETHYL ALCOHOL 301 mg/dL
[2017-11-30 20:29] LABS: CREATININE 0.7 mg/dL (0.6-1.3); GFR ESTIMATE (CALCULATED) > 59 mL/min/ (58.99-99999)
[2017-11-30 20:30] LABS: UREA NITROGEN (BUN) 8 mg/dL (9-23)
[2017-12-01 04:39] LABS: AMPHETAMINE NEGATIVE (500 ng/mL); BARBITURATES NEGATIVE (200 ng/mL); BENZODIAZEPINES NEGATIVE (150 ng/mL); BUPRENORPHINE NEGATIVE (10 ng/mL); COCAINE NEGATIVE (150 ng/mL); METHADONE NEGATIVE (200 ng/mL); METHAMPHETAMINE NEGATIVE (500 ng/mL); OPIATES (MORPHINE) NEGATIVE (100 ng/mL); OXYCODONE NEGATIVE (100 ng/mL); PHENCYCLIDINE NEGATIVE (25 ng/mL); PROPOXYPHENE NEGATIVE (300 ng/mL); THC CANNABINOIDS NEGATIVE (50 ng/mL); TRICYCLIC ANTIDEPRESSANTS NEGATIVE (300 ng/mL)
[2017-12-01 10:44] VITALS: BP 127/64
== END 2017-12-01 10:44 | disposition home or self-care (01) ==
LOC: EME 19:05
DX: F33.2 Major depressive disorder, recurrent severe without psychotic features (principal); F10.129 Alcohol abuse with intoxication, unspecified; Y90.8 Blood alcohol level of 240 mg/100 ml or more; R45.851 Suicidal ideations; I10 Essential (primary) hypertension; K74.60 Unspecified cirrhosis of liver; Z91.5 Personal history of self-harm; Z86.73 Personal history of transient ischemic attack (TIA), and cerebral infarction without residual deficits; Z86.14 Personal history of Methicillin resistant Staphylococcus aureus infection
CPT/HCPCS: 80048; 85027; 90839; 99281; 99285; G0480

== ENCOUNTER 2017-12-04 19:30 | Emergency (ER) | payer OTHER ==
[~2017-12-04] VITALS: Ht 167.6 cm; Wt 88.6 kg
[2017-12-04 20:56] LABS: HEMATOCRIT 38.8 % (38.0-50.0); HEMOGLOBIN 13.5 G/DL (12.5-16.6); MCH 34.3 PG (29.0-34.0); MCHC 34.8 G/DL (30.0-36.0); MCV 98.5 FL (86-99); PLATELET COUNT 66 K/uL (156-360); RBC DIS.WIDTH-CV 14.5 % (11.8-14.6); RBC DIS.WIDTH-SD 52.3 % (39-53); RED BLOOD COUNT 3.94 M/uL (4.00-5.50); WHITE BLOOD COUNT 3.4 K/uL (4.1-10.2)
[2017-12-04 21:05] LABS: ALBUMIN 3.5 g/dL (3.2-4.8); CHLORIDE 103 mEq/L (99-109); POTASSIUM 3.8 mEq/L (3.7-5.4); SODIUM 133 mEq/L (136-147)
[2017-12-04 21:07] LABS: GLUCOSE 91 mg/dL (70-99)
[2017-12-04 21:08] LABS: TOTAL PROTEIN 8.1 g/dL (6.4-8.3)
[2017-12-04 21:09] LABS: TOTAL BILIRUBIN 2.7 mg/dL (0.0-1.0)
[2017-12-04 21:10] LABS: SERUM ETHYL ALCOHOL 244 mg/dL
[2017-12-04 21:11] LABS: ALKALINE PHOSPHATASE 119 IU/L (3-129); CREATININE 0.7 mg/dL (0.6-1.3); GFR ESTIMATE (CALCULATED) > 59 mL/min/ (58.99-99999)
[2017-12-04 21:12] LABS: UREA NITROGEN (BUN) 7 mg/dL (9-23)
[2017-12-04 21:13] LABS: AST (GOT) 84 IU/L (2-34)
[2017-12-04 21:14] LABS: ALT (GPT) 46 IU/L (3-49)
[2017-12-04 22:06] LABS: AMPHETAMINE NEGATIVE (500 ng/mL); BARBITURATES NEGATIVE (200 ng/mL); BENZODIAZEPINES NEGATIVE (150 ng/mL); BUPRENORPHINE NEGATIVE (10 ng/mL); COCAINE NEGATIVE (150 ng/mL); METHADONE NEGATIVE (200 ng/mL); METHAMPHETAMINE NEGATIVE (500 ng/mL); OPIATES (MORPHINE) NEGATIVE (100 ng/mL); OXYCODONE NEGATIVE (100 ng/mL); PHENCYCLIDINE NEGATIVE (25 ng/mL); PROPOXYPHENE NEGATIVE (300 ng/mL); THC CANNABINOIDS NEGATIVE (50 ng/mL); TRICYCLIC ANTIDEPRESSANTS NEGATIVE (300 ng/mL)
[2017-12-05 03:19] VITALS: BP 136/88
== END 2017-12-05 03:33 | disposition home or self-care (01) ==
LOC: EME → EDBD 19:30 → EME 12-05 03:33
PROVIDERS: Emergency Medicine
DX: F10.121 Alcohol abuse with intoxication delirium (principal); F33.2 Major depressive disorder, recurrent severe without psychotic features; R45.851 Suicidal ideations; Y90.8 Blood alcohol level of 240 mg/100 ml or more; D69.6 Thrombocytopenia, unspecified; D72.819 Decreased white blood cell count, unspecified; Z91.5 Personal history of self-harm; Z86.73 Personal history of transient ischemic attack (TIA), and cerebral infarction without residual deficits
CPT/HCPCS: 80053; 85027; 90839; 99281; 99284; G0480

== ENCOUNTER 2017-12-13 19:40 | Emergency (ER) | payer OTHER ==
[~2017-12-13] VITALS: Ht 167.6 cm; Wt 97.1 kg
[2017-12-13 20:12] LABS: HEMATOCRIT 38.4 % (38.0-50.0); HEMOGLOBIN 13.7 G/DL (12.5-16.6); MCH 35.3 PG (29.0-34.0); MCHC 35.7 G/DL (30.0-36.0); PLATELET COUNT 64 K/uL (156-360); RBC DIS.WIDTH-CV 15.4 % (11.8-14.6); RBC DIS.WIDTH-SD 55.5 % (39-53); RED BLOOD COUNT 3.88 M/uL (4.00-5.50); WHITE BLOOD COUNT 3.9 K/uL (4.1-10.2)
[2017-12-13 20:29] LABS: CHLORIDE 104 mEq/L (99-109); SODIUM 135 mEq/L (136-147)
[2017-12-13 20:31] LABS: GLUCOSE 91 mg/dL (70-99)
[2017-12-13 20:34] LABS: SERUM ETHYL ALCOHOL 296 mg/dL
[2017-12-13 20:35] LABS: CREATININE 0.7 mg/dL (0.6-1.3); GFR ESTIMATE (CALCULATED) > 59 mL/min/ (58.99-99999)
[2017-12-13 20:37] LABS: UREA NITROGEN (BUN) 8 mg/dL (9-23)
[2017-12-13 20:38] LABS: ACETAMINOPHEN (TYLENOL) < 10 mcg/mL (10-30); SALICYLATE < 5.0 MG/DL (15-30)
[2017-12-13 22:11] LABS: AMPHETAMINE NEGATIVE (500 ng/mL); BARBITURATES NEGATIVE (200 ng/mL); BENZODIAZEPINES NEGATIVE (150 ng/mL); BUPRENORPHINE NEGATIVE (10 ng/mL); COCAINE NEGATIVE (150 ng/mL); METHADONE NEGATIVE (200 ng/mL); METHAMPHETAMINE NEGATIVE (500 ng/mL); OPIATES (MORPHINE) NEGATIVE (100 ng/mL); OXYCODONE NEGATIVE (100 ng/mL); PHENCYCLIDINE NEGATIVE (25 ng/mL); PROPOXYPHENE NEGATIVE (300 ng/mL); THC CANNABINOIDS NEGATIVE (50 ng/mL); TRICYCLIC ANTIDEPRESSANTS NEGATIVE (300 ng/mL)
[2017-12-13 23:14] VITALS: BP 141/88
== END 2017-12-13 23:31 | disposition home or self-care (01) ==
LOC: EME 19:40
PROVIDERS: Emergency Medicine
DX: F10.129 Alcohol abuse with intoxication, unspecified (principal); Y90.8 Blood alcohol level of 240 mg/100 ml or more; I10 Essential (primary) hypertension; K74.60 Unspecified cirrhosis of liver; Z91.5 Personal history of self-harm; Z86.73 Personal history of transient ischemic attack (TIA), and cerebral infarction without residual deficits; Z86.14 Personal history of Methicillin resistant Staphylococcus aureus infection
CPT/HCPCS: 80048; 85027; 99281; 99285; G0480

== ENCOUNTER 2017-12-20 19:32 | Emergency (ER) | payer OTHER ==
[~2017-12-20] VITALS: Ht 170.2 cm; Wt 98.2 kg
[2017-12-20 20:30] VITALS: BP 138/72
== END 2017-12-21 02:27 | disposition home or self-care (01) ==
LOC: EME 19:32
DX: F32.9 Major depressive disorder, single episode, unspecified (principal); F10.129 Alcohol abuse with intoxication, unspecified; Z91.5 Personal history of self-harm; I10 Essential (primary) hypertension
CPT/HCPCS: 99281; 99283

== ENCOUNTER 2018-01-09 19:50 | Emergency (ER) | payer OTHER ==
[~2018-01-09] VITALS: Ht 167.6 cm; Wt 101.5 kg
[2018-01-09 20:24] LABS: HEMOGLOBIN 13.5 G/DL (12.5-16.6); MCH 34.5 PG (29.0-34.0); MCHC 34.6 G/DL (30.0-36.0); MCV 99.7 FL (86-99); RBC DIS.WIDTH-CV 14.6 % (11.8-14.6); RBC DIS.WIDTH-SD 53.7 % (39-53); RED BLOOD COUNT 3.91 M/uL (4.00-5.50); WHITE BLOOD COUNT 4.9 K/uL (4.1-10.2)
[2018-01-09 20:26] LABS: PLATELET COUNT 88 K/uL (156-360)
[2018-01-09 20:31] LABS: CHLORIDE 100 mEq/L (99-109); SODIUM 133 mEq/L (136-147)
[2018-01-09 20:33] LABS: GLUCOSE 94 mg/dL (70-99)
[2018-01-09 20:36] LABS: SERUM ETHYL ALCOHOL 346 mg/dL
[2018-01-09 20:37] LABS: CREATININE 0.7 mg/dL (0.6-1.3); GFR ESTIMATE (CALCULATED) > 59 mL/min/ (58.99-99999); UREA NITROGEN (BUN) 8 mg/dL (9-23)
[2018-01-09 20:43] LABS: AMPHETAMINE NEGATIVE (500 ng/mL); BARBITURATES NEGATIVE (200 ng/mL); BENZODIAZEPINES NEGATIVE (150 ng/mL); BUPRENORPHINE NEGATIVE (10 ng/mL); COCAINE NEGATIVE (150 ng/mL); METHADONE NEGATIVE (200 ng/mL); METHAMPHETAMINE NEGATIVE (500 ng/mL); OPIATES (MORPHINE) NEGATIVE (100 ng/mL); OXYCODONE NEGATIVE (100 ng/mL); PHENCYCLIDINE NEGATIVE (25 ng/mL); PROPOXYPHENE NEGATIVE (300 ng/mL); THC CANNABINOIDS NEGATIVE (50 ng/mL); TRICYCLIC ANTIDEPRESSANTS NEGATIVE (300 ng/mL)
[2018-01-10 05:28] VITALS: BP 129/78
== END 2018-01-10 05:47 | disposition home or self-care (01) ==
LOC: EME → EDBD 19:50 → EME 01-10 05:47
DX: F10.129 Alcohol abuse with intoxication, unspecified (principal); Y90.8 Blood alcohol level of 240 mg/100 ml or more; R45.851 Suicidal ideations; K74.60 Unspecified cirrhosis of liver; I10 Essential (primary) hypertension; Z91.5 Personal history of self-harm; Z86.73 Personal history of transient ischemic attack (TIA), and cerebral infarction without residual deficits; Z86.14 Personal history of Methicillin resistant Staphylococcus aureus infection
CPT/HCPCS: 80048; 85027; 99281; 99285; G0480

== ENCOUNTER 2018-01-12 18:56 | Emergency (ER) | payer OTHER ==
[~2018-01-12] VITALS: Ht 167.6 cm; Wt 101.5 kg
[2018-01-12 19:39] LABS: HEMATOCRIT 36.4 % (38.0-50.0); HEMOGLOBIN 12.7 G/DL (12.5-16.6); MCHC 34.9 G/DL (30.0-36.0); MCV 100.3 FL (86-99); PLATELET COUNT 64 K/uL (156-360); RBC DIS.WIDTH-CV 14.4 % (11.8-14.6); RBC DIS.WIDTH-SD 53.1 % (39-53); RED BLOOD COUNT 3.63 M/uL (4.00-5.50); WHITE BLOOD COUNT 3.6 K/uL (4.1-10.2)
[2018-01-12 19:50] LABS: CHLORIDE 103 mEq/L (99-109); POTASSIUM 3.9 mEq/L (3.7-5.4); SODIUM 135 mEq/L (136-147)
[2018-01-12 19:52] LABS: GLUCOSE 111 mg/dL (70-99)
[2018-01-12 19:55] LABS: SERUM ETHYL ALCOHOL 379 mg/dL
[2018-01-12 19:56] LABS: CREATININE 0.7 mg/dL (0.6-1.3); GFR ESTIMATE (CALCULATED) > 59 mL/min/ (58.99-99999); UREA NITROGEN (BUN) 6 mg/dL (9-23)
[2018-01-12 21:04] LABS: AMPHETAMINE NEGATIVE (500 ng/mL); BARBITURATES NEGATIVE (200 ng/mL); BENZODIAZEPINES NEGATIVE (150 ng/mL); BUPRENORPHINE NEGATIVE (10 ng/mL); COCAINE NEGATIVE (150 ng/mL); METHADONE NEGATIVE (200 ng/mL); METHAMPHETAMINE NEGATIVE (500 ng/mL); OPIATES (MORPHINE) NEGATIVE (100 ng/mL); OXYCODONE NEGATIVE (100 ng/mL); PHENCYCLIDINE NEGATIVE (25 ng/mL); PROPOXYPHENE NEGATIVE (300 ng/mL); THC CANNABINOIDS NEGATIVE (50 ng/mL); TRICYCLIC ANTIDEPRESSANTS NEGATIVE (300 ng/mL)
[2018-01-13 06:03] VITALS: BP 97/54
== END 2018-01-13 06:37 | disposition home or self-care (01) ==
LOC: EME 18:56
PROVIDERS: Emergency Medicine Emergency Medical Services
DX: F10.921 Alcohol use, unspecified with intoxication delirium (principal); Y90.8 Blood alcohol level of 240 mg/100 ml or more; F32.9 Major depressive disorder, single episode, unspecified; R45.851 Suicidal ideations; Z59.0 Homelessness; K74.60 Unspecified cirrhosis of liver; I10 Essential (primary) hypertension; Z91.5 Personal history of self-harm; Z86.73 Personal history of transient ischemic attack (TIA), and cerebral infarction without residual deficits; Z86.14 Personal history of Methicillin resistant Staphylococcus aureus infection
CPT/HCPCS: 80048; 85027; 99281; 99285; G0480

== ENCOUNTER 2018-01-15 20:45 | Emergency (ER) | payer OTHER ==
[~2018-01-15] VITALS: Ht 167.6 cm; Wt 105.4 kg
[2018-01-16 06:38] VITALS: BP 136/75
== END 2018-01-16 06:41 | disposition home or self-care (01) ==
LOC: EME 20:45
DX: F10.129 Alcohol abuse with intoxication, unspecified (principal); J40 Bronchitis, not specified as acute or chronic; Z87.891 Personal history of nicotine dependence; I10 Essential (primary) hypertension; Z91.5 Personal history of self-harm
CPT/HCPCS: 71045; 99281; 99285

== ENCOUNTER 2018-01-17 20:11 | Emergency (ER) | payer OTHER ==
[~2018-01-17] VITALS: Ht 167.6 cm; Wt 102.7 kg
[2018-01-17 22:01] LABS: BASOPHIL (%) 0.6 % (0-1); EOSINOPHIL (%) 3.9 % (0-5); EOSINOPHIL COUNT 0.1 K/uL (0-0.3); HEMATOCRIT 37.9 % (38.0-50.0); HEMOGLOBIN 13.2 G/DL (12.5-16.6); IMMATURE GRANULOCYTE (%) 0.3 % (0.0-0.7); LYMPHOCYTE (%) 54.2 % (15-42); LYMPHOCYTE COUNT 1.7 K/uL (1.0-2.8); MCHC 34.8 G/DL (30.0-36.0); MCV 100.5 FL (86-99); MONOCYTE COUNT 0.3 K/uL (0-0.8); NEUTROPHIL COUNT 0.9 K/uL (1.8-6.4); PLATELET COUNT 51 K/uL (156-360); RBC DIS.WIDTH-CV 14.3 % (11.8-14.6); RED BLOOD COUNT 3.77 M/uL (4.00-5.50); WHITE BLOOD COUNT 3.1 K/uL (4.1-10.2)
[2018-01-17 22:17] LABS: CHLORIDE 102 mEq/L (99-109); POTASSIUM 3.8 mEq/L (3.7-5.4); SODIUM 136 mEq/L (136-147)
[2018-01-17 22:19] LABS: GLUCOSE 97 mg/dL (70-99)
[2018-01-17 22:22] LABS: SERUM ETHYL ALCOHOL 338 mg/dL
[2018-01-17 22:23] LABS: CREATININE 0.6 mg/dL (0.6-1.3); GFR ESTIMATE (CALCULATED) > 59 mL/min/ (58.99-99999)
[2018-01-17 22:24] LABS: UREA NITROGEN (BUN) 5 mg/dL (9-23)
[2018-01-18 01:41] LABS: AMPHETAMINE NEGATIVE (500 ng/mL); BARBITURATES NEGATIVE (200 ng/mL); BENZODIAZEPINES NEGATIVE (150 ng/mL); BUPRENORPHINE NEGATIVE (10 ng/mL); COCAINE NEGATIVE (150 ng/mL); METHADONE NEGATIVE (200 ng/mL); METHAMPHETAMINE NEGATIVE (500 ng/mL); OPIATES (MORPHINE) NEGATIVE (100 ng/mL); OXYCODONE NEGATIVE (100 ng/mL); PHENCYCLIDINE NEGATIVE (25 ng/mL); PROPOXYPHENE NEGATIVE (300 ng/mL); THC CANNABINOIDS NEGATIVE (50 ng/mL); TRICYCLIC ANTIDEPRESSANTS NEGATIVE (300 ng/mL)
[2018-01-18 09:43] VITALS: BP 124/59
== END 2018-01-18 09:44 | disposition home or self-care (01) ==
LOC: EME 20:11
PROVIDERS: Emergency Medicine
DX: F33.2 Major depressive disorder, recurrent severe without psychotic features (principal); F10.129 Alcohol abuse with intoxication, unspecified; F10.14 Alcohol abuse with alcohol-induced mood disorder; Z91.5 Personal history of self-harm; Z86.73 Personal history of transient ischemic attack (TIA), and cerebral infarction without residual deficits; Y90.8 Blood alcohol level of 240 mg/100 ml or more
CPT/HCPCS: 80048; 85025; 90837; 99281; 99284; G0480

== ENCOUNTER 2018-01-20 06:33 | Emergency (ER) | payer OTHER ==
[~2018-01-20] VITALS: Ht 167.6 cm; Wt 100.3 kg
[2018-01-20 06:59] LABS: HEMATOCRIT 39.8 % (38.0-50.0); HEMOGLOBIN 13.7 G/DL (12.5-16.6); MCH 34.8 PG (29.0-34.0); MCHC 34.4 G/DL (30.0-36.0); PLATELET COUNT 51 K/uL (156-360); RBC DIS.WIDTH-CV 14.1 % (11.8-14.6); RBC DIS.WIDTH-SD 52.9 % (39-53); RED BLOOD COUNT 3.94 M/uL (4.00-5.50); WHITE BLOOD COUNT 2.1 K/uL (4.1-10.2)
[2018-01-20 07:23] LABS: APPEARANCE CLEAR ((CLEAR)); BILIRUBIN NEGATIVE; BLOOD NEGATIVE; COLOR YELLOW ((YELLOW)); GLUCOSE (STRIP) NEGATIVE; KETONES NEGATIVE; LEUKOCYTES NEGATIVE; NITRITE NEGATIVE; PROTEIN (STRIP) NEGATIVE; SPECIFIC GRAVITY 1.013 (1.000-1.030); UROBILINOGEN 0.2 MG/DL (0.2-1.0)
[2018-01-20 07:30] LABS: AMPHETAMINE NEGATIVE (500 ng/mL); BARBITURATES NEGATIVE (200 ng/mL); BENZODIAZEPINES NEGATIVE (150 ng/mL); BUPRENORPHINE NEGATIVE (10 ng/mL); COCAINE NEGATIVE (150 ng/mL); METHADONE NEGATIVE (200 ng/mL); METHAMPHETAMINE NEGATIVE (500 ng/mL); OPIATES (MORPHINE) NEGATIVE (100 ng/mL); OXYCODONE NEGATIVE (100 ng/mL); PHENCYCLIDINE NEGATIVE (25 ng/mL); PROPOXYPHENE NEGATIVE (300 ng/mL); THC CANNABINOIDS NEGATIVE (50 ng/mL); TRICYCLIC ANTIDEPRESSANTS NEGATIVE (300 ng/mL)
[2018-01-20 07:34] LABS: ALBUMIN 3.4 G/DL (3.2-4.8); ALKALINE PHOSPHATASE 88 IU/L (3-129); ALT (GPT) 40 IU/L (3-49); AST (GOT) 76 IU/L (2-34); CHLORIDE 105 MEQ/L (99-109); CREATININE 0.6 MG/DL (0.6-1.3); GFR ESTIMATE (CALCULATED) > 59 mL/min/ (58.99-99999); GLUCOSE 105 mg/dL (70-99); LIPASE 62 U/L (1.0-51.0); SERUM ETHYL ALCOHOL < 10 mg/dL; SODIUM 139 MEQ/L (136-147); TOTAL BILIRUBIN 2.7 MG/DL (0.0-1.0); TOTAL PROTEIN 7.2 G/DL (6.4-8.3); UREA NITROGEN (BUN) 9 mg/dL (9-23)
[2018-01-20 08:39] VITALS: BP 148/72
== END 2018-01-20 08:40 | disposition home or self-care (01) ==
LOC: EME → EDBD 06:33 → EME 08:40
PROVIDERS: Nurse Practitioner Family
DX: R10.31 Right lower quadrant pain (principal); F10.10 Alcohol abuse, uncomplicated; F33.1 Major depressive disorder, recurrent, moderate
CPT/HCPCS: 80053; 81003; 83690; 85027; 90839; 99281; 99284; G0480

== ENCOUNTER 2018-01-21 19:06 | Emergency (ER) | payer OTHER ==
[~2018-01-21] VITALS: Ht 167.6 cm; Wt 104.6 kg
[2018-01-22 02:35] VITALS: BP 107/58
== END 2018-01-22 02:35 | disposition home or self-care (01) ==
LOC: EME 19:06
DX: F32.9 Major depressive disorder, single episode, unspecified (principal); F10.10 Alcohol abuse, uncomplicated; Z91.5 Personal history of self-harm; I10 Essential (primary) hypertension; Z86.73 Personal history of transient ischemic attack (TIA), and cerebral infarction without residual deficits
CPT/HCPCS: 99281; 99284

== ENCOUNTER 2018-01-24 18:32 | Emergency (ER) | payer OTHER ==
[~2018-01-24] VITALS: Ht 167.6 cm; Wt 102.8 kg
[2018-01-25 06:24] VITALS: BP 112/77
== END 2018-01-25 06:24 | disposition home or self-care (01) ==
LOC: EME 18:32
DX: F10.129 Alcohol abuse with intoxication, unspecified (principal); Y90.9 Presence of alcohol in blood, level not specified; I10 Essential (primary) hypertension; K74.60 Unspecified cirrhosis of liver; K72.90 Hepatic failure, unspecified without coma; Z86.73 Personal history of transient ischemic attack (TIA), and cerebral infarction without residual deficits; Z91.5 Personal history of self-harm; Z86.14 Personal history of Methicillin resistant Staphylococcus aureus infection; Z91.018 Allergy to other foods
CPT/HCPCS: 71046; 99281; 99283

== ENCOUNTER 2018-01-25 19:09 | Emergency (ER) | payer OTHER ==
[~2018-01-25] VITALS: Ht 167.6 cm; Wt 103.3 kg
[2018-01-26 06:00] VITALS: BP 126/88
== END 2018-01-26 06:01 | disposition home or self-care (01) ==
LOC: EME 19:09
DX: F10.129 Alcohol abuse with intoxication, unspecified (principal); Z86.73 Personal history of transient ischemic attack (TIA), and cerebral infarction without residual deficits; Z91.5 Personal history of self-harm
CPT/HCPCS: 99281; 99284

== ENCOUNTER 2018-01-26 18:09 | Emergency (ER) | payer OTHER ==
[~2018-01-26] VITALS: Ht 167.6 cm; Wt 101.3 kg
[2018-01-27 05:43] VITALS: BP 118/72
== END 2018-01-27 05:44 | disposition home or self-care (01) ==
LOC: EME 18:09
DX: F10.121 Alcohol abuse with intoxication delirium (principal); F32.9 Major depressive disorder, single episode, unspecified; Z86.73 Personal history of transient ischemic attack (TIA), and cerebral infarction without residual deficits; K74.60 Unspecified cirrhosis of liver; I10 Essential (primary) hypertension
CPT/HCPCS: 99281; 99283

== ENCOUNTER 2018-01-29 20:17 | Emergency (ER) | payer OTHER ==
[~2018-01-29] VITALS: Ht 167.6 cm; Wt 104.9 kg
[2018-01-29 21:08] LABS: HEMATOCRIT 40.5 % (38.0-50.0); HEMOGLOBIN 13.8 G/DL (12.5-16.6); MCH 34.3 PG (29.0-34.0); MCHC 34.1 G/DL (30.0-36.0); MCV 100.7 FL (86-99); PLATELET COUNT 58 K/uL (156-360); RBC DIS.WIDTH-CV 13.7 % (11.8-14.6); RBC DIS.WIDTH-SD 51.2 % (39-53); RED BLOOD COUNT 4.02 M/uL (4.00-5.50)
[2018-01-29 21:18] LABS: CHLORIDE 103 mEq/L (99-109); SODIUM 139 mEq/L (136-147)
[2018-01-29 21:20] LABS: GLUCOSE 103 mg/dL (70-99)
[2018-01-29 21:23] LABS: SERUM ETHYL ALCOHOL 118 mg/dL
[2018-01-29 21:24] LABS: CREATININE 0.7 mg/dL (0.6-1.3); GFR ESTIMATE (CALCULATED) > 59 mL/min/ (58.99-99999); UREA NITROGEN (BUN) 11 mg/dL (9-23)
[2018-01-29 23:46] LABS: ALBUMIN 3.5 g/dL (3.2-4.8)
[2018-01-29 23:49] LABS: TOTAL PROTEIN 7.8 g/dL (6.4-8.3)
[2018-01-29 23:51] LABS: TOTAL BILIRUBIN 2.1 mg/dL (0.0-1.0)
[2018-01-29 23:52] LABS: ALKALINE PHOSPHATASE 142 IU/L (3-129)
[2018-01-29 23:54] LABS: AST (GOT) 111 IU/L (2-34); DIRECT BILIRUBIN 1.1 mg/dL (0.0-0.3)
[2018-01-29 23:55] LABS: ALT (GPT) 54 IU/L (3-49); LIPASE 92 U/L (1.0-51.0)
[2018-01-30 01:01] LABS: AMPHETAMINE NEGATIVE (500 ng/mL); BARBITURATES NEGATIVE (200 ng/mL); BENZODIAZEPINES NEGATIVE (150 ng/mL); BUPRENORPHINE NEGATIVE (10 ng/mL); COCAINE NEGATIVE (150 ng/mL); METHADONE NEGATIVE (200 ng/mL); METHAMPHETAMINE NEGATIVE (500 ng/mL); OPIATES (MORPHINE) NEGATIVE (100 ng/mL); OXYCODONE NEGATIVE (100 ng/mL); PHENCYCLIDINE NEGATIVE (25 ng/mL); PROPOXYPHENE NEGATIVE (300 ng/mL); THC CANNABINOIDS NEGATIVE (50 ng/mL); TRICYCLIC ANTIDEPRESSANTS NEGATIVE (300 ng/mL)
[2018-01-30 01:16] VITALS: BP 135/78
== END 2018-01-30 01:16 | disposition home or self-care (01) ==
LOC: EME 20:17
DX: F32.9 Major depressive disorder, single episode, unspecified (principal); R45.851 Suicidal ideations; R10.9 Unspecified abdominal pain; I10 Essential (primary) hypertension; Z86.73 Personal history of transient ischemic attack (TIA), and cerebral infarction without residual deficits; Z91.5 Personal history of self-harm; F10.129 Alcohol abuse with intoxication, unspecified; F43.9 Reaction to severe stress, unspecified; K70.10 Alcoholic hepatitis without ascites; K74.60 Unspecified cirrhosis of liver; K85.90 Acute pancreatitis without necrosis or infection, unspecified; R09.02 Hypoxemia
CPT/HCPCS: 80048; 80076; 83690; 85027; 90839; 99281; 99285; G0480

== ENCOUNTER 2018-01-30 18:39 | Emergency (ER) | payer OTHER ==
[~2018-01-30] VITALS: Ht 167.6 cm; Wt 103.4 kg
[2018-01-30 19:01] LABS: HEMATOCRIT 41.8 % (38.0-50.0); HEMOGLOBIN 14.5 G/DL (12.5-16.6); MCH 34.4 PG (29.0-34.0); MCHC 34.7 G/DL (30.0-36.0); MCV 99.3 FL (86-99); PLATELET COUNT 58 K/uL (156-360); RBC DIS.WIDTH-CV 13.7 % (11.8-14.6); RBC DIS.WIDTH-SD 50.2 % (39-53); RED BLOOD COUNT 4.21 M/uL (4.00-5.50); WHITE BLOOD COUNT 3.7 K/uL (4.1-10.2)
[2018-01-30 19:10] LABS: CHLORIDE 99 mEq/L (99-109); POTASSIUM 4.1 mEq/L (3.7-5.4)
[2018-01-30 19:11] LABS: GLUCOSE 90 mg/dL (70-99)
[2018-01-30 19:15] LABS: CREATININE 0.6 mg/dL (0.6-1.3); GFR ESTIMATE (CALCULATED) > 59 mL/min/ (58.99-99999)
[2018-01-30 19:16] LABS: UREA NITROGEN (BUN) 8 mg/dL (9-23)
[2018-01-30 19:18] LABS: SODIUM 131 mEq/L (136-147)
[2018-01-30 19:23] LABS: TROP-I INTERPRETATION NEGATIVE; TROPONIN-I < 0.01 ng/mL (0.0-0.30)
[2018-01-30 20:59] LABS: LIPASE 55 U/L (1.0-51.0)
[2018-01-30 21:46] LABS: TROP-I INTERPRETATION NEGATIVE; TROPONIN-I 0.01 ng/mL (0.0-0.30)
[2018-01-30 22:16] VITALS: BP 110/67
== END 2018-01-30 22:16 | disposition home or self-care (01) ==
LOC: EME 18:39
PROVIDERS: Emergency Medicine
DX: R07.9 Chest pain, unspecified (principal); F10.129 Alcohol abuse with intoxication, unspecified; I45.81 Long QT syndrome; I10 Essential (primary) hypertension; Z86.73 Personal history of transient ischemic attack (TIA), and cerebral infarction without residual deficits
CPT/HCPCS: 71046; 80048; 83690; 84484; 85027; 93005; 99281; 99284

== ENCOUNTER 2018-01-31 19:01 | Emergency (ER) | payer OTHER ==
[~2018-01-31] VITALS: Ht 167.6 cm; Wt 104.5 kg
[2018-01-31 22:24] VITALS: BP 98/56
== END 2018-01-31 22:24 | disposition home or self-care (01) ==
LOC: EME 19:01
DX: F10.129 Alcohol abuse with intoxication, unspecified (principal); I10 Essential (primary) hypertension; K74.60 Unspecified cirrhosis of liver; K72.90 Hepatic failure, unspecified without coma; Z91.5 Personal history of self-harm; Z86.73 Personal history of transient ischemic attack (TIA), and cerebral infarction without residual deficits
CPT/HCPCS: 99281; 99285

== ENCOUNTER 2018-02-01 20:03 | Emergency (ER) | payer OTHER ==
[~2018-02-01] VITALS: Ht 167.6 cm; Wt 102.6 kg
[2018-02-02 01:06] VITALS: BP 122/70
== END 2018-02-02 01:38 | disposition home or self-care (01) ==
LOC: EME → EDBD 20:03 → EME 20:03
DX: F10.10 Alcohol abuse, uncomplicated (principal); Y90.8 Blood alcohol level of 240 mg/100 ml or more; F32.9 Major depressive disorder, single episode, unspecified; I10 Essential (primary) hypertension; K74.60 Unspecified cirrhosis of liver; Z91.5 Personal history of self-harm; Z86.73 Personal history of transient ischemic attack (TIA), and cerebral infarction without residual deficits; Z86.14 Personal history of Methicillin resistant Staphylococcus aureus infection
CPT/HCPCS: 99281; 99284; G0480

== ENCOUNTER 2018-02-03 18:12 | Emergency (ER) | payer OTHER ==
[~2018-02-03] VITALS: Ht 177.8 cm; Wt 86.0 kg
[2018-02-03 19:08] LABS: HEMOGLOBIN 13.4 G/DL (12.5-16.6); MCH 34.8 PG (29.0-34.0); MCHC 34.4 G/DL (30.0-36.0); MCV 101.3 FL (86-99); PLATELET COUNT 58 K/uL (156-360); RBC DIS.WIDTH-SD 51.6 % (39-53); RED BLOOD COUNT 3.85 M/uL (4.00-5.50); WHITE BLOOD COUNT 3.7 K/uL (4.1-10.2)
[2018-02-03 19:22] LABS: CHLORIDE 105 mEq/L (99-109); POTASSIUM 3.8 mEq/L (3.7-5.4); SODIUM 137 mEq/L (136-147)
[2018-02-03 19:24] LABS: GLUCOSE 95 mg/dL (70-99)
[2018-02-03 19:28] LABS: CREATININE 0.7 mg/dL (0.6-1.3); GFR ESTIMATE (CALCULATED) > 59 mL/min/ (58.99-99999)
[2018-02-03 19:29] LABS: UREA NITROGEN (BUN) 9 mg/dL (9-23)
[2018-02-03 19:36] LABS: TROP-I INTERPRETATION NEGATIVE; TROPONIN-I < 0.01 ng/mL (0.0-0.30)
[2018-02-03 21:39] LABS: TROP-I INTERPRETATION NEGATIVE; TROPONIN-I 0.01 ng/mL (0.0-0.30)
[2018-02-03 22:02] VITALS: BP 146/72
== END 2018-02-03 22:15 | disposition home or self-care (01) ==
LOC: EME 18:12
PROVIDERS: Nurse Practitioner Family
DX: R07.9 Chest pain, unspecified (principal); F10.20 Alcohol dependence, uncomplicated; I45.81 Long QT syndrome; I10 Essential (primary) hypertension; K72.90 Hepatic failure, unspecified without coma; K74.60 Unspecified cirrhosis of liver; Z86.73 Personal history of transient ischemic attack (TIA), and cerebral infarction without residual deficits; Z87.19 Personal history of other diseases of the digestive system; Z86.14 Personal history of Methicillin resistant Staphylococcus aureus infection; Z91.5 Personal history of self-harm; Z91.018 Allergy to other foods
CPT/HCPCS: 71045; 80048; 84484; 85027; 93005; 99281; 99285

== ENCOUNTER 2018-02-04 19:15 | Emergency (ER) | payer OTHER ==
[~2018-02-04] VITALS: Ht 177.8 cm; Wt 86.0 kg
[2018-02-04 20:14] LABS: BASOPHIL (%) 1.2 % (0-1); EOSINOPHIL (%) 4.1 % (0-5); EOSINOPHIL COUNT 0.1 K/uL (0-0.3); HEMATOCRIT 38.7 % (38.0-50.0); HEMOGLOBIN 13.5 G/DL (12.5-16.6); IMMATURE GRANULOCYTE (%) 0.3 % (0.0-0.7); LYMPHOCYTE COUNT 1.7 K/uL (1.0-2.8); MCH 35.2 PG (29.0-34.0); MCHC 34.9 G/DL (30.0-36.0); MONOCYTE (%) 10.3 % (3-12); MONOCYTE COUNT 0.4 K/uL (0-0.8); NEUTROPHIL (%) 35.1 % (45-76); NEUTROPHIL COUNT 1.2 K/uL (1.8-6.4); PLATELET COUNT 68 K/uL (156-360); RBC DIS.WIDTH-CV 13.9 % (11.8-14.6); RBC DIS.WIDTH-SD 51.3 % (39-53); RED BLOOD COUNT 3.83 M/uL (4.00-5.50); WHITE BLOOD COUNT 3.4 K/uL (4.1-10.2)
[2018-02-04 20:34] LABS: ALBUMIN 3.6 g/dL (3.2-4.8); CHLORIDE 103 mEq/L (99-109); POTASSIUM 3.8 mEq/L (3.7-5.4); SODIUM 137 mEq/L (136-147)
[2018-02-04 20:37] LABS: GLUCOSE 109 mg/dL (70-99); TOTAL PROTEIN 7.8 g/dL (6.4-8.3)
[2018-02-04 20:40] LABS: ALKALINE PHOSPHATASE 123 IU/L (3-129); CREATININE 0.7 mg/dL (0.6-1.3); GFR ESTIMATE (CALCULATED) > 59 mL/min/ (58.99-99999); SERUM ETHYL ALCOHOL 326 mg/dL
[2018-02-04 20:42] LABS: UREA NITROGEN (BUN) 7 mg/dL (9-23)
[2018-02-04 20:43] LABS: TROP-I INTERPRETATION NEGATIVE; TROPONIN-I < 0.01 ng/mL (0.0-0.30)
[2018-02-04 20:43] LABS: ALT (GPT) 71 IU/L (3-49)
[2018-02-04 20:44] LABS: LIPASE 86 U/L (1.0-51.0)
[2018-02-04 20:47] LABS: AST (GOT) 182 IU/L (2-34)
[2018-02-04 22:10] LABS: APPEARANCE CLEAR ((CLEAR)); BILIRUBIN NEGATIVE; BLOOD NEGATIVE; COLOR YELLOW ((YELLOW)); GLUCOSE (STRIP) NEGATIVE; KETONES NEGATIVE; LEUKOCYTES NEGATIVE; NITRITE NEGATIVE; PROTEIN (STRIP) NEGATIVE; SPECIFIC GRAVITY 1.005 (1.000-1.030); UROBILINOGEN 0.2 MG/DL (0.2-1.0)
[2018-02-04 22:38] LABS: AMPHETAMINE NEGATIVE (500 ng/mL); BARBITURATES NEGATIVE (200 ng/mL); BENZODIAZEPINES NEGATIVE (150 ng/mL); BUPRENORPHINE NEGATIVE (10 ng/mL); COCAINE NEGATIVE (150 ng/mL); METHADONE NEGATIVE (200 ng/mL); METHAMPHETAMINE NEGATIVE (500 ng/mL); OPIATES (MORPHINE) NEGATIVE (100 ng/mL); OXYCODONE NEGATIVE (100 ng/mL); PHENCYCLIDINE NEGATIVE (25 ng/mL); PROPOXYPHENE NEGATIVE (300 ng/mL); THC CANNABINOIDS NEGATIVE (50 ng/mL); TRICYCLIC ANTIDEPRESSANTS NEGATIVE (300 ng/mL)
[2018-02-05 06:33] VITALS: BP 116/57
== END 2018-02-05 06:34 | disposition home or self-care (01) ==
LOC: EME → EDBD 19:15 → EME 02-05 06:34
PROVIDERS: Emergency Medicine
DX: F10.229 Alcohol dependence with intoxication, unspecified (principal); Y90.8 Blood alcohol level of 240 mg/100 ml or more; F33.1 Major depressive disorder, recurrent, moderate; R45.851 Suicidal ideations; R10.13 Epigastric pain; K74.60 Unspecified cirrhosis of liver; I10 Essential (primary) hypertension; Z91.5 Personal history of self-harm; Z86.73 Personal history of transient ischemic attack (TIA), and cerebral infarction without residual deficits; Z86.14 Personal history of Methicillin resistant Staphylococcus aureus infection
CPT/HCPCS: 71045; 80053; 81003; 83690; 84484; 85025; 90839; 93005; 99281; 99285; G0480; J2405; J7030; S0028

== ENCOUNTER 2018-02-05 18:03 | Inpatient (IN) | payer OTHER ==
[~2018-02-05] VITALS: Ht 167.6 cm; Wt 104.2 kg
[2018-02-05 18:55] LABS: HEMATOCRIT 37.8 % (38.0-50.0); HEMOGLOBIN 13.1 G/DL (12.5-16.6); MCH 34.8 PG (29.0-34.0); MCHC 34.7 G/DL (30.0-36.0); MCV 100.5 FL (86-99); PLATELET COUNT 63 K/uL (156-360); RBC DIS.WIDTH-CV 13.7 % (11.8-14.6); RBC DIS.WIDTH-SD 50.3 % (39-53); RED BLOOD COUNT 3.76 M/uL (4.00-5.50); WHITE BLOOD COUNT 3.3 K/uL (4.1-10.2)
[2018-02-05 19:03] LABS: ALBUMIN 3.4 g/dL (3.2-4.8)
[2018-02-05 19:04] LABS: CHLORIDE 104 mEq/L (99-109); POTASSIUM 3.8 mEq/L (3.7-5.4); SODIUM 138 mEq/L (136-147)
[2018-02-05 19:06] LABS: GLUCOSE 111 mg/dL (70-99); TOTAL PROTEIN 7.4 g/dL (6.4-8.3)
[2018-02-05 19:08] LABS: TOTAL BILIRUBIN 1.8 mg/dL (0.0-1.0)
[2018-02-05 19:09] LABS: ALKALINE PHOSPHATASE 130 IU/L (3-129)
[2018-02-05 19:10] LABS: CREATININE 0.7 mg/dL (0.6-1.3); GFR ESTIMATE (CALCULATED) > 59 mL/min/ (58.99-99999)
[2018-02-05 19:11] LABS: AST (GOT) 146 IU/L (2-34); UREA NITROGEN (BUN) 6 mg/dL (9-23)
[2018-02-05 19:13] LABS: ALT (GPT) 64 IU/L (3-49); LIPASE 104 U/L (1.0-51.0)
[2018-02-06 01:57] LABS: MAGNESIUM 1.7 mg/dL (1.3-2.7)
[2018-02-06 02:16] LABS: APPEARANCE CLEAR ((CLEAR)); BILIRUBIN NEGATIVE; BLOOD NEGATIVE; COLOR YELLOW ((YELLOW)); GLUCOSE (STRIP) NEGATIVE; KETONES NEGATIVE; LEUKOCYTES NEGATIVE; NITRITE NEGATIVE; PROTEIN (STRIP) NEGATIVE; SPECIFIC GRAVITY 1.029 (1.000-1.030)
[2018-02-06 03:09] VITALS: BP 124/73
[2018-02-06 05:50] LABS: HEMATOCRIT 36.2 % (38.0-50.0); HEMOGLOBIN 12.1 G/DL (12.5-16.6); MCH 34.1 PG (29.0-34.0); MCHC 33.4 G/DL (30.0-36.0); RBC DIS.WIDTH-CV 13.8 % (11.8-14.6); RBC DIS.WIDTH-SD 52.1 % (39-53); RED BLOOD COUNT 3.55 M/uL (4.00-5.50)
[2018-02-06 05:51] LABS: WHITE BLOOD COUNT 1.9 K/uL (4.1-10.2)
[2018-02-06 06:24] LABS: IMM.PLATELET FRACTION 1.4 (1-7); PLAT.SUFFICIENCY DECREASED; PLATELET COUNT 53 K/uL (156-360)
[2018-02-06 06:49] LABS: CHLORIDE 105 MEQ/L (99-109); CREATININE 0.5 MG/DL (0.6-1.3); GFR ESTIMATE (CALCULATED) > 59 mL/min/ (58.99-99999); GLUCOSE 101 mg/dL (70-99); POTASSIUM 4.1 MEQ/L (3.7-5.4); SODIUM 141 MEQ/L (136-147); UREA NITROGEN (BUN) 7 mg/dL (9-23)
[2018-02-06 07:57] VITALS: BP 155/81
[2018-02-06 11:24] VITALS: BP 162/72
[2018-02-06 16:13] VITALS: BP 140/73
[2018-02-06 19:35] VITALS: BP 133/69
[2018-02-07] VITALS (7 sets, daily range): BP systolic 127–159; BP diastolic 61–88
[2018-02-07 05:51] LABS: HEMATOCRIT 39.6 % (38.0-50.0); HEMOGLOBIN 13.3 G/DL (12.5-16.6); MCH 34.2 PG (29.0-34.0); MCHC 33.6 G/DL (30.0-36.0); MCV 101.8 FL (86-99); RBC DIS.WIDTH-SD 52.1 % (39-53); RED BLOOD COUNT 3.89 M/uL (4.00-5.50); WHITE BLOOD COUNT 2.4 K/uL (4.1-10.2)
[2018-02-07 05:56] LABS: IMM.PLATELET FRACTION 1.4 (1-7); PLATELET COUNT 40 K/uL (156-360)
[2018-02-07 06:14] LABS: ALBUMIN 3.2 G/DL (3.2-4.8); ALKALINE PHOSPHATASE 75 IU/L (3-129); ALT (GPT) 43 IU/L (3-49); AST (GOT) 87 IU/L (2-34); CHLORIDE 101 MEQ/L (99-109); CREATININE 0.6 MG/DL (0.6-1.3); GFR ESTIMATE (CALCULATED) > 59 mL/min/ (58.99-99999); GLUCOSE 99 mg/dL (70-99); MAGNESIUM 1.5 mg/dl (1.3-2.7); POTASSIUM 3.7 MEQ/L (3.7-5.4); SODIUM 136 MEQ/L (136-147); TOTAL BILIRUBIN 3.4 MG/DL (0.0-1.0); TOTAL PROTEIN 6.8 G/DL (6.4-8.3); UREA NITROGEN (BUN) 7 mg/dL (9-23)
[2018-02-07 06:52] LABS: PLAT.SUFFICIENCY DECREASED
[2018-02-07 20:50] LABS: AMYLASE 52 IU/L (1-118); LIPASE 71 U/L (1.0-51.0)
[2018-02-07 20:57] LABS: INTER. NORMALIZED RATIO 2.5
[2018-02-08 04:34] VITALS: BP 131/70
[2018-02-08 05:48] LABS: BASOPHIL (%) 0.6 % (0-1); EOSINOPHIL (%) 5.2 % (0-5); EOSINOPHIL COUNT 0.2 K/uL (0-0.3); HEMOGLOBIN 13.1 G/DL (12.5-16.6); IMMATURE GRANULOCYTE (%) 0.6 % (0.0-0.7); LYMPHOCYTE (%) 24.1 % (15-42); LYMPHOCYTE COUNT 0.8 K/uL (1.0-2.8); MCH 33.3 PG (29.0-34.0); MCHC 32.8 G/DL (30.0-36.0); MCV 101.8 FL (86-99); MONOCYTE (%) 11.3 % (3-12); MONOCYTE COUNT 0.4 K/uL (0-0.8); NEUTROPHIL (%) 58.2 % (45-76); NEUTROPHIL COUNT 1.9 K/uL (1.8-6.4); RBC DIS.WIDTH-SD 52.6 % (39-53); RED BLOOD COUNT 3.93 M/uL (4.00-5.50); WHITE BLOOD COUNT 3.3 K/uL (4.1-10.2)
[2018-02-08 05:49] LABS: PLATELET COUNT 54 K/uL (156-360)
[2018-02-08 06:16] LABS: ALKALINE PHOSPHATASE 80 IU/L (3-129); ALT (GPT) 38 IU/L (3-49); AST (GOT) 66 IU/L (2-34); CHLORIDE 100 MEQ/L (99-109); CREATININE 0.6 MG/DL (0.6-1.3); GFR ESTIMATE (CALCULATED) > 59 mL/min/ (58.99-99999); GLUCOSE 94 mg/dL (70-99); POTASSIUM 3.8 MEQ/L (3.7-5.4); SODIUM 134 MEQ/L (136-147); TOTAL PROTEIN 6.7 G/DL (6.4-8.3); UREA NITROGEN (BUN) 9 mg/dL (9-23)
[2018-02-08 06:17] LABS: TOTAL BILIRUBIN 2.7 MG/DL (0.0-1.0)
[2018-02-08 07:57] VITALS: BP 136/75
[2018-02-08 10:48] VITALS: BP 142/90
[2018-02-08 16:08] VITALS: BP 147/82
[2018-02-08 20:00] VITALS: BP 91/53
[2018-02-08 23:10] VITALS: BP 103/55
[2018-02-09 03:42] VITALS: BP 135/70
[2018-02-09 06:16] LABS: BASOPHIL (%) 0.3 % (0-1); EOSINOPHIL (%) 4.7 % (0-5); EOSINOPHIL COUNT 0.1 K/uL (0-0.3); HEMOGLOBIN 13.5 G/DL (12.5-16.6); IMMATURE GRANULOCYTE (%) 0.3 % (0.0-0.7); LYMPHOCYTE (%) 25.3 % (15-42); LYMPHOCYTE COUNT 0.8 K/uL (1.0-2.8); MCH 34.5 PG (29.0-34.0); MCHC 33.8 G/DL (30.0-36.0); MCV 102.3 FL (86-99); MONOCYTE (%) 10.4 % (3-12); MONOCYTE COUNT 0.3 K/uL (0-0.8); NEUTROPHIL COUNT 1.8 K/uL (1.8-6.4); PLATELET COUNT 60 K/uL (156-360); RBC DIS.WIDTH-CV 14.2 % (11.8-14.6); RBC DIS.WIDTH-SD 53.2 % (39-53); RED BLOOD COUNT 3.91 M/uL (4.00-5.50)
[2018-02-09 06:26] LABS: INTER. NORMALIZED RATIO 2.2
[2018-02-09 06:34] LABS: ALKALINE PHOSPHATASE 74 IU/L (3-129); ALT (GPT) 35 IU/L (3-49); AST (GOT) 56 IU/L (2-34); CHLORIDE 104 MEQ/L (99-109); CREATININE 0.6 MG/DL (0.6-1.3); GFR ESTIMATE (CALCULATED) > 59 mL/min/ (58.99-99999); GLUCOSE 99 mg/dL (70-99); SODIUM 137 MEQ/L (136-147); TOTAL PROTEIN 6.6 G/DL (6.4-8.3); UREA NITROGEN (BUN) 11 mg/dL (9-23)
[2018-02-09 06:38] LABS: TOTAL BILIRUBIN 2.1 MG/DL (0.0-1.0)
[2018-02-09 07:30] VITALS: BP 137/78
[2018-02-09] MEDS ORDERED: CHLORDIAZEPOXID25 MG PO (13:25)
[2018-02-10 11:01] LABS: HEPATITIS B SURFACE ANTIGEN Nonreactive
[2018-02-12 08:24] LABS: HCV RNA (IU/mL) <15 IU/mL (())
[2018-02-12 09:04] LABS: HCV RNA (LOG IU/mL) <1.18 (())
== END 2018-02-09 13:46 | disposition home or self-care (01) | DRG 189 ==
LOC: EME 18:03 → 5WEST 02-06 00:48 → EDOF 02-06 00:48 → ENRESERV 02-06 00:52 → 5WEST 02-06 02:49
PROVIDERS: Emergency Medicine; Hospitalist; Internal Medicine; Specialist
DX: J96.01 Acute respiratory failure with hypoxia (principal); K85.90 Acute pancreatitis without necrosis or infection, unspecified; K70.30 Alcoholic cirrhosis of liver without ascites; J98.11 Atelectasis; F10.229 Alcohol dependence with intoxication, unspecified; M48.56XA Collapsed vertebra, not elsewhere classified, lumbar region, initial encounter for fracture; D61.818 Other pancytopenia; K80.20 Calculus of gallbladder without cholecystitis without obstruction; Z68.37 Body mass index [BMI] 37.0-37.9, adult; D68.9 Coagulation defect, unspecified; K76.0 Fatty (change of) liver, not elsewhere classified; I27.20 Pulmonary hypertension, unspecified; F33.9 Major depressive disorder, recurrent, unspecified; I86.8 Varicose veins of other specified sites; G47.33 Obstructive sleep apnea (adult) (pediatric); E66.9 Obesity, unspecified; G89.29 Other chronic pain; K76.6 Portal hypertension; D49.0 Neoplasm of unspecified behavior of digestive system; R79.89 Other specified abnormal findings of blood chemistry; F41.9 Anxiety disorder, unspecified; I10 Essential (primary) hypertension; Z91.19 Patient's noncompliance with other medical treatment and regimen; Z91.5 Personal history of self-harm; Z86.14 Personal history of Methicillin resistant Staphylococcus aureus infection; Z91.14 Patient's other noncompliance with medication regimen; Z87.891 Personal history of nicotine dependence; Z87.01 Personal history of pneumonia (recurrent); Z83.0 Family history of human immunodeficiency virus [HIV] disease; Z80.1 Family history of malignant neoplasm of trachea, bronchus and lung; Z87.820 Personal history of traumatic brain injury; Z59.0 Homelessness
CPT/HCPCS: 71045; 71275; 74177; 74183; 80048; 80053; 81003; 82105 90; 82150; 82390; 83690; 83735; 84484; 85025; 85027; 85610; 85730; 87040; 87070; 87177; 87205; 87340; 87449; 87493; 87506; 87522 90; 90839; 93005; 94640; 94640 76; 94760; 94799; 99202; 99281; 99284; 99285; G0480; J0456; J0696; J2405; J3411; J3475; J7030; S0028

== ENCOUNTER 2018-02-09 21:01 | Emergency (ER) | payer OTHER ==
[~2018-02-09] VITALS: Ht 167.6 cm; Wt 103.0 kg
[~2018-02-09 21:01] MED LIST changes: +CHLORDIAZEPOXID25 MG PO
[2018-02-10 02:23] VITALS: BP 145/89
== END 2018-02-10 02:24 | disposition home or self-care (01) ==
LOC: EME → EDBD 21:01 → EME 21:01
DX: F10.129 Alcohol abuse with intoxication, unspecified (principal); F32.9 Major depressive disorder, single episode, unspecified; Z91.5 Personal history of self-harm; Z86.73 Personal history of transient ischemic attack (TIA), and cerebral infarction without residual deficits; Z87.891 Personal history of nicotine dependence
CPT/HCPCS: 99281; 99284

== ENCOUNTER 2018-02-10 21:03 | Emergency (ER) | payer OTHER ==
[~2018-02-10] VITALS: Ht 167.6 cm
[2018-02-10 23:59] VITALS: BP 156/72
== END 2018-02-10 23:59 | disposition home or self-care (01) ==
LOC: EME 21:03 → EXP 21:03
DX: F10.129 Alcohol abuse with intoxication, unspecified (principal); F32.9 Major depressive disorder, single episode, unspecified; K74.60 Unspecified cirrhosis of liver; K72.90 Hepatic failure, unspecified without coma; I10 Essential (primary) hypertension; Z86.73 Personal history of transient ischemic attack (TIA), and cerebral infarction without residual deficits; Z87.891 Personal history of nicotine dependence; Z86.14 Personal history of Methicillin resistant Staphylococcus aureus infection; Z87.19 Personal history of other diseases of the digestive system; Z91.5 Personal history of self-harm; Z91.018 Allergy to other foods
CPT/HCPCS: 99281; 99283

== ENCOUNTER 2018-02-11 20:58 | Emergency (ER) | payer OTHER ==
[~2018-02-11] VITALS: Ht 167.6 cm; Wt 105.4 kg
[2018-02-12 02:01] VITALS: BP 118/84
== END 2018-02-12 02:01 | disposition home or self-care (01) ==
LOC: EME 20:58
DX: S30.0XXA Contusion of lower back and pelvis, initial encounter (principal); F10.10 Alcohol abuse, uncomplicated; W10.1XXA Fall (on)(from) sidewalk curb, initial encounter
CPT/HCPCS: 99281; 99283

== ENCOUNTER 2018-02-12 21:17 | Emergency (ER) | payer OTHER ==
[~2018-02-12] VITALS: Ht 167.6 cm; Wt 106.7 kg
[2018-02-12 22:15] LABS: HEMOGLOBIN 13.2 G/DL (12.5-16.6); MCH 34.7 PG (29.0-34.0); MCHC 33.8 G/DL (30.0-36.0); MCV 102.6 FL (86-99); PLATELET COUNT 61 K/uL (156-360); RBC DIS.WIDTH-CV 14.3 % (11.8-14.6); RBC DIS.WIDTH-SD 53.7 % (39-53); WHITE BLOOD COUNT 3.6 K/uL (4.1-10.2)
[2018-02-12 22:27] LABS: CHLORIDE 104 mEq/L (99-109); POTASSIUM 3.9 mEq/L (3.7-5.4); SODIUM 140 mEq/L (136-147)
[2018-02-12 22:29] LABS: GLUCOSE 90 mg/dL (70-99)
[2018-02-12 22:32] LABS: SERUM ETHYL ALCOHOL 144 mg/dL
[2018-02-12 22:33] LABS: CREATININE 0.7 mg/dL (0.6-1.3); GFR ESTIMATE (CALCULATED) > 59 mL/min/ (58.99-99999)
[2018-02-12 22:34] LABS: UREA NITROGEN (BUN) 10 mg/dL (9-23)
[2018-02-13 05:46] VITALS: BP 158/82
== END 2018-02-13 05:49 | disposition home or self-care (01) ==
LOC: EME 21:17
DX: F32.9 Major depressive disorder, single episode, unspecified (principal); I10 Essential (primary) hypertension; Z86.73 Personal history of transient ischemic attack (TIA), and cerebral infarction without residual deficits; Z91.018 Allergy to other foods
CPT/HCPCS: 80048; 85027; 99281; 99284; G0480

== ENCOUNTER 2018-02-13 23:05 | Emergency (ER) | payer OTHER ==
[~2018-02-13] VITALS: Ht 172.7 cm; Wt 108.7 kg
[2018-02-14 06:00] VITALS: BP 112/67
== END 2018-02-14 07:02 | disposition home or self-care (01) ==
LOC: EME 23:05
DX: F10.129 Alcohol abuse with intoxication, unspecified (principal); F32.9 Major depressive disorder, single episode, unspecified; Z86.73 Personal history of transient ischemic attack (TIA), and cerebral infarction without residual deficits
CPT/HCPCS: 99281; 99283

== ENCOUNTER 2018-02-14 23:47 | Emergency (ER) | payer OTHER ==
[~2018-02-14] VITALS: Ht 167.6 cm; Wt 96.3 kg
[2018-02-15 06:12] VITALS: BP 121/76
== END 2018-02-15 06:12 | disposition home or self-care (01) ==
LOC: EME 23:47
DX: F32.9 Major depressive disorder, single episode, unspecified (principal); Z04.6 Encounter for general psychiatric examination, requested by authority; I10 Essential (primary) hypertension; Z86.73 Personal history of transient ischemic attack (TIA), and cerebral infarction without residual deficits
CPT/HCPCS: 99281; 99284; G0480

== ENCOUNTER 2018-02-15 20:58 | Inpatient (IN) | payer OTHER ==
[~2018-02-15] VITALS: Ht 167.6 cm; Wt 95.4 kg
[2018-02-15 21:44] LABS: HEMATOCRIT 35.7 % (38.0-50.0); HEMOGLOBIN 12.1 G/DL (12.5-16.6); MCH 34.4 PG (29.0-34.0); MCHC 33.9 G/DL (30.0-36.0); MCV 101.4 FL (86-99); PLATELET COUNT 67 K/uL (156-360); RBC DIS.WIDTH-CV 14.2 % (11.8-14.6); RBC DIS.WIDTH-SD 53.2 % (39-53); RED BLOOD COUNT 3.52 M/uL (4.00-5.50)
[2018-02-15 22:01] LABS: ALBUMIN 3.2 g/dL (3.2-4.8)
[2018-02-15 22:02] LABS: CHLORIDE 107 mEq/L (99-109); SODIUM 142 mEq/L (136-147)
[2018-02-15 22:04] LABS: TOTAL PROTEIN 7.1 g/dL (6.4-8.3)
[2018-02-15 22:06] LABS: TOTAL BILIRUBIN 1.6 mg/dL (0.0-1.0)
[2018-02-15 22:07] LABS: ALKALINE PHOSPHATASE 134 IU/L (3-129); CREATININE 0.7 mg/dL (0.6-1.3); GFR ESTIMATE (CALCULATED) > 59 mL/min/ (58.99-99999)
[2018-02-15 22:08] LABS: GLUCOSE 118 mg/dL (70-99)
[2018-02-15 22:09] LABS: AST (GOT) 94 IU/L (2-34); UREA NITROGEN (BUN) 10 mg/dL (9-23)
[2018-02-15 22:10] LABS: ALT (GPT) 47 IU/L (3-49)
[2018-02-16 05:07] LABS: SERUM ETHYL ALCOHOL 218 mg/dL
[2018-02-16 06:25] VITALS: BP 164/96
[2018-02-16 11:15] LABS: BICARBONATE 32.7 mEq/L (22-26); CARBOXY HGB 2.8 % (0-5); COMMENTS - BLOOD GASES A+C+; DEVICE RA; METHEMOGLOBIN 1.5 % (0-1.5); PCO2 40 mm Hg (35-45); PO2 56 mm Hg (80-100); SITE RR; TOTAL RESP RATE 18 resp/min; pH 7.52 (7.35-7.45)
[2018-02-16 12:00] VITALS: BP 145/87
[2018-02-16 16:05] VITALS: BP 140/82
[2018-02-16 19:56] VITALS: BP 144/70
[2018-02-17] VITALS: BP 150/88
[2018-02-17 06:46] LABS: ALBUMIN 3.2 G/DL (3.2-4.8); ALKALINE PHOSPHATASE 98 IU/L (3-129); ALT (GPT) 35 IU/L (3-49); AST (GOT) 64 IU/L (2-34); CHLORIDE 98 MEQ/L (99-109); CREATININE 0.6 MG/DL (0.6-1.3); GFR ESTIMATE (CALCULATED) > 59 mL/min/ (58.99-99999); GLUCOSE 93 mg/dL (70-99); MAGNESIUM 1.6 mg/dl (1.3-2.7); POTASSIUM 3.7 MEQ/L (3.7-5.4); SODIUM 135 MEQ/L (136-147); TOTAL BILIRUBIN 2.9 MG/DL (0.0-1.0); TOTAL PROTEIN 6.9 G/DL (6.4-8.3); UREA NITROGEN (BUN) 12 mg/dL (9-23)
[2018-02-17 06:50] LABS: BASOPHIL (%) 1.8 % (0-1); EOSINOPHIL (%) 6.2 % (0-5); EOSINOPHIL COUNT 0.1 K/uL (0-0.3); LYMPHOCYTE (%) 35.8 % (15-42); LYMPHOCYTE COUNT 0.8 K/uL (1.0-2.8); MCH 34.5 PG (29.0-34.0); MCHC 34.6 G/DL (30.0-36.0); MCV 99.8 FL (86-99); MONOCYTE (%) 14.2 % (3-12); MONOCYTE COUNT 0.3 K/uL (0-0.8); PLATELET COUNT 63 K/uL (156-360); RBC DIS.WIDTH-CV 13.9 % (11.8-14.6); RBC DIS.WIDTH-SD 50.2 % (39-53); RED BLOOD COUNT 4.11 M/uL (4.00-5.50); WHITE BLOOD COUNT 2.3 K/uL (4.1-10.2)
[2018-02-17 06:55] LABS: HEMOGLOBIN 14.2 G/DL (12.5-16.6)
[2018-02-17 07:46] VITALS: BP 130/77
[2018-02-17 08:44] LABS: BASE EXCESS 5.6 mEq/L (-3 to +3); BICARBONATE 28.7 mEq/L (22-26); CARBOXY HGB 3.1 % (0-5); COMMENTS - BLOOD GASES A+C+; DEVICE RA; METHEMOGLOBIN 1.5 % (0-1.5); PCO2 36 mm Hg (35-45); PO2 53 mm Hg (80-100); SITE RR; TOTAL RESP RATE 20 resp/min; pH 7.51 (7.35-7.45)
[2018-02-17 11:30] VITALS: BP 121/87
[2018-02-17 16:35] VITALS: BP 139/91
[2018-02-17 20:11] VITALS: BP 153/94
[2018-02-17 23:46] VITALS: BP 142/84
[2018-02-18 04:19] VITALS: BP 124/71
[2018-02-18 06:04] LABS: HEMOGLOBIN 14.4 G/DL (12.5-16.6); MCHC 34.3 G/DL (30.0-36.0); MCV 99.1 FL (86-99); PLATELET COUNT 75 K/uL (156-360); RBC DIS.WIDTH-SD 51.2 % (39-53); RED BLOOD COUNT 4.24 M/uL (4.00-5.50); WHITE BLOOD COUNT 2.9 K/uL (4.1-10.2)
[2018-02-18 06:36] LABS: CHLORIDE 103 MEQ/L (99-109); CREATININE 0.6 MG/DL (0.6-1.3); GFR ESTIMATE (CALCULATED) > 59 mL/min/ (58.99-99999); GLUCOSE 88 mg/dL (70-99); SODIUM 137 MEQ/L (136-147); UREA NITROGEN (BUN) 12 mg/dL (9-23)
[2018-02-18 07:20] VITALS: BP 131/70
[2018-02-18] MEDS ORDERED: FOLIC ACID1 MG PO (11:01)
[2018-02-18] MEDS ORDERED: PANTOPRAZOLE SO40 MG PO (11:01)
[2018-02-18] MEDS ORDERED: SPIRONOLACTONE50 MG PO (11:01)
[2018-02-18] MEDS ORDERED: THERAGRAN1 TABLET PO (11:02)
[2018-02-18 15:46] VITALS: BP 155/86
[2018-02-19] VITALS: BP 119/64
[2018-02-19 07:24] VITALS: BP 144/91
[2018-02-19 10:30] LABS: HEMATOCRIT 43.9 % (38.0-50.0); HEMOGLOBIN 14.4 G/DL (12.5-16.6); MCHC 32.8 G/DL (30.0-36.0); MCV 100.7 FL (86-99); PLATELET COUNT 87 K/uL (156-360); RBC DIS.WIDTH-CV 14.2 % (11.8-14.6); RBC DIS.WIDTH-SD 52.9 % (39-53); RED BLOOD COUNT 4.36 M/uL (4.00-5.50); WHITE BLOOD COUNT 3.1 K/uL (4.1-10.2)
[2018-02-19 10:57] LABS: CHLORIDE 102 MEQ/L (99-109); CREATININE 0.7 MG/DL (0.6-1.3); GFR ESTIMATE (CALCULATED) > 59 mL/min/ (58.99-99999); GLUCOSE 128 mg/dL (70-99); LIPASE 55 U/L (1.0-51.0); SODIUM 133 MEQ/L (136-147); TROP-I INTERPRETATION NEGATIVE; TROPONIN-I 0.02 ng/mL (0.0-0.30); UREA NITROGEN (BUN) 13 mg/dL (9-23)
[2018-02-19 17:26] VITALS: BP 133/69
[2018-02-19 23:42] VITALS: BP 120/69
[2018-02-20 08:02] VITALS: BP 148/89
[2018-02-20] MEDS ORDERED: BENTYL10 MG PO (11:58)
[2018-02-20] MEDS ORDERED: BUPROPION XL150 MG PO (11:58)
[2018-02-20 15:33] VITALS: BP 182/100
[2018-02-20 23:53] VITALS: BP 137/96
[2018-02-21 07:30] VITALS: BP 126/70
[2018-02-21] MEDS ORDERED: THERAGRAN1 TABLET PO (11:08)
[2018-02-21] MEDS ORDERED: SPIRONOLACTONE50 MG PO (11:08)
[2018-02-21] MEDS ORDERED: FOLIC ACID1 MG PO (11:08)
[2018-02-21] MEDS ORDERED: BENTYL10 MG PO (11:08)
[2018-02-21] MEDS ORDERED: BUPROPION XL150 MG PO (11:08)
[2018-02-21] MEDS ORDERED: PANTOPRAZOLE SO40 MG PO (11:08)
== END 2018-02-21 14:12 | disposition home or self-care (01) | DRG 155 ==
LOC: EME 20:58 → EDOF 02-16 04:48 → 5SOUTH 02-16 04:48 → ENRESERV 02-16 04:49 → 5SOUTH 02-16 06:16 → ENPENDDIS 02-21 11:38 → 5SOUTH 02-21 14:12
PROVIDERS: Emergency Medicine; Internal Medicine; Physician Assistant Medical
DX: G47.33 Obstructive sleep apnea (adult) (pediatric) (principal); K76.81 Hepatopulmonary syndrome; I27.21 Secondary pulmonary arterial hypertension; J96.11 Chronic respiratory failure with hypoxia; D61.818 Other pancytopenia; F32.9 Major depressive disorder, single episode, unspecified; R45.851 Suicidal ideations; F10.229 Alcohol dependence with intoxication, unspecified; Y90.7 Blood alcohol level of 200-239 mg/100 ml; K70.30 Alcoholic cirrhosis of liver without ascites; K76.6 Portal hypertension; R16.0 Hepatomegaly, not elsewhere classified; K80.20 Calculus of gallbladder without cholecystitis without obstruction; I10 Essential (primary) hypertension; J98.11 Atelectasis; E66.9 Obesity, unspecified; Z68.36 Body mass index [BMI] 36.0-36.9, adult; R26.2 Difficulty in walking, not elsewhere classified; F41.9 Anxiety disorder, unspecified; S32.018D Other fracture of first lumbar vertebra, subsequent encounter for fracture with routine healing; W19.XXXD Unspecified fall, subsequent encounter; Z91.19 Patient's noncompliance with other medical treatment and regimen; Z59.0 Homelessness; Z87.01 Personal history of pneumonia (recurrent); Z86.14 Personal history of Methicillin resistant Staphylococcus aureus infection; Z86.73 Personal history of transient ischemic attack (TIA), and cerebral infarction without residual deficits; Z87.891 Personal history of nicotine dependence; Z91.81 History of falling; Z91.14 Patient's other noncompliance with medication regimen; Z80.1 Family history of malignant neoplasm of trachea, bronchus and lung; Z83.0 Family history of human immunodeficiency virus [HIV] disease
CPT/HCPCS: 36600; 71045; 71275; 80048; 80053; 82803; 83690; 83735; 83880; 84484; 85025; 85027; 93005; 93306; 94640; 94799; 99281; 99283; 99284; 99285; G0480

== ENCOUNTER 2018-02-21 20:48 | Emergency (ER) | payer OTHER ==
[~2018-02-21] VITALS: Ht 167.6 cm; Wt 102.2 kg
[~2018-02-21 20:48] MED LIST changes: +BENTYL10 MG PO; +BUPROPION XL150 MG PO; +PANTOPRAZOLE SO40 MG PO; +SPIRONOLACTONE50 MG PO
[2018-02-21 23:32] LABS: BASOPHIL (%) 0.7 % (0-1); EOSINOPHIL (%) 2.9 % (0-5); EOSINOPHIL COUNT 0.2 K/uL (0-0.3); HEMATOCRIT 42.9 % (38.0-50.0); HEMOGLOBIN 14.8 G/DL (12.5-16.6); IMMATURE GRANULOCYTE (%) 0.5 % (0.0-0.7); LYMPHOCYTE (%) 31.4 % (15-42); LYMPHOCYTE COUNT 1.8 K/uL (1.0-2.8); MCHC 34.5 G/DL (30.0-36.0); MCV 98.6 FL (86-99); MONOCYTE (%) 13.2 % (3-12); MONOCYTE COUNT 0.8 K/uL (0-0.8); NEUTROPHIL (%) 51.3 % (45-76); PLATELET COUNT 105 K/uL (156-360); RBC DIS.WIDTH-CV 13.5 % (11.8-14.6); RBC DIS.WIDTH-SD 49.1 % (39-53); RED BLOOD COUNT 4.35 M/uL (4.00-5.50); WHITE BLOOD COUNT 5.8 K/uL (4.1-10.2)
[2018-02-21 23:46] LABS: ALBUMIN 3.7 g/dL (3.2-4.8); CHLORIDE 101 mEq/L (99-109); POTASSIUM 4.2 mEq/L (3.7-5.4); SODIUM 131 mEq/L (136-147)
[2018-02-21 23:50] LABS: TOTAL BILIRUBIN 1.9 mg/dL (0.0-1.0)
[2018-02-21 23:51] LABS: SERUM ETHYL ALCOHOL 145 mg/dL
[2018-02-21 23:52] LABS: ALKALINE PHOSPHATASE 108 IU/L (3-129); GFR ESTIMATE (CALCULATED) > 59 mL/min/ (58.99-99999)
[2018-02-21 23:53] LABS: UREA NITROGEN (BUN) 14 mg/dL (9-23)
[2018-02-21 23:54] LABS: AST (GOT) 102 IU/L (2-34)
[2018-02-21 23:55] LABS: ALT (GPT) 63 IU/L (3-49)
[2018-02-22 00:02] LABS: GLUCOSE 95 mg/dL (70-99); TOTAL PROTEIN 8.6 g/dL (6.4-8.3)
[2018-02-22 01:02] LABS: ACETAMINOPHEN (TYLENOL) < 10 mcg/mL (10-30); SALICYLATE < 5.0 MG/DL (15-30)
[2018-02-22 02:30] VITALS: BP 137/82
== END 2018-02-22 02:31 | disposition home or self-care (01) ==
LOC: EME 20:48
PROVIDERS: Emergency Medicine
DX: L50.0 Allergic urticaria (principal); F10.20 Alcohol dependence, uncomplicated; F32.9 Major depressive disorder, single episode, unspecified; I10 Essential (primary) hypertension; F41.9 Anxiety disorder, unspecified; Z87.891 Personal history of nicotine dependence; Z86.73 Personal history of transient ischemic attack (TIA), and cerebral infarction without residual deficits; Z91.02 Food additives allergy status
CPT/HCPCS: 80053; 85025; 90839; 99281; 99285; G0480

== ENCOUNTER 2018-02-22 21:54 | Emergency (ER) | payer OTHER ==
[~2018-02-22] VITALS: Ht 167.6 cm; Wt 102.4 kg
[2018-02-22 23:22] VITALS: BP 122/73
== END 2018-02-22 23:35 | disposition home or self-care (01) ==
LOC: EME 21:54
DX: F10.129 Alcohol abuse with intoxication, unspecified (principal); I10 Essential (primary) hypertension; Z86.73 Personal history of transient ischemic attack (TIA), and cerebral infarction without residual deficits; Z87.891 Personal history of nicotine dependence
CPT/HCPCS: 80053; 83690; 85027; 99281; 99283

== ENCOUNTER 2018-02-23 23:26 | Emergency (ER) | payer OTHER ==
[~2018-02-23] VITALS: Ht 167.6 cm; Wt 102.7 kg
[2018-02-24 07:07] VITALS: BP 168/90
== END 2018-02-24 07:09 | disposition home or self-care (01) ==
LOC: EME 23:26
DX: F10.129 Alcohol abuse with intoxication, unspecified (principal); F32.9 Major depressive disorder, single episode, unspecified; R45.851 Suicidal ideations; Z86.73 Personal history of transient ischemic attack (TIA), and cerebral infarction without residual deficits; I10 Essential (primary) hypertension; Z87.891 Personal history of nicotine dependence; F41.9 Anxiety disorder, unspecified
CPT/HCPCS: 99281; 99285

== ENCOUNTER 2018-02-25 00:09 | Emergency (ER) | payer OTHER ==
[~2018-02-25] VITALS: Ht 167.6 cm; Wt 109.0 kg
[2018-02-25 07:20] VITALS: BP 122/68
== END 2018-02-25 07:21 | disposition home or self-care (01) ==
LOC: EME 00:09
DX: F10.129 Alcohol abuse with intoxication, unspecified (principal); I10 Essential (primary) hypertension; Z87.891 Personal history of nicotine dependence; Z86.73 Personal history of transient ischemic attack (TIA), and cerebral infarction without residual deficits
CPT/HCPCS: 99281; 99284

== ENCOUNTER 2018-02-26 22:52 | Emergency (ER) | payer OTHER ==
[~2018-02-26] VITALS: Ht 167.6 cm; Wt 108.4 kg
[2018-02-27 01:32] LABS: HEMATOCRIT 37.6 % (38.0-50.0); MCH 33.8 PG (29.0-34.0); MCHC 34.6 G/DL (30.0-36.0); MCV 97.7 FL (86-99); RBC DIS.WIDTH-CV 13.7 % (11.8-14.6); RBC DIS.WIDTH-SD 49.7 % (39-53); RED BLOOD COUNT 3.85 M/uL (4.00-5.50); WHITE BLOOD COUNT 3.2 K/uL (4.1-10.2)
[2018-02-27 01:37] LABS: ALBUMIN 3.3 g/dL (3.2-4.8)
[2018-02-27 01:38] LABS: CHLORIDE 108 mEq/L (99-109)
[2018-02-27 01:39] LABS: SODIUM 140 mEq/L (136-147)
[2018-02-27 01:40] LABS: GLUCOSE 104 mg/dL (70-99); TOTAL PROTEIN 7.4 g/dL (6.4-8.3)
[2018-02-27 01:42] LABS: TOTAL BILIRUBIN 1.4 mg/dL (0.0-1.0)
[2018-02-27 01:43] LABS: SERUM ETHYL ALCOHOL 222 mg/dL
[2018-02-27 01:44] LABS: ALKALINE PHOSPHATASE 200 IU/L (3-129); CREATININE 0.7 mg/dL (0.6-1.3); GFR ESTIMATE (CALCULATED) > 59 mL/min/ (58.99-99999)
[2018-02-27 01:45] LABS: AST (GOT) 92 IU/L (2-34); UREA NITROGEN (BUN) 11 mg/dL (9-23)
[2018-02-27 01:47] LABS: ALT (GPT) 54 IU/L (3-49); LIPASE 95 U/L (1.0-51.0)
[2018-02-27 02:18] LABS: PLAT.SUFFICIENCY DECREASED; PLATELET COUNT 73 K/uL (156-360)
[2018-02-27 06:47] LABS: APPEARANCE CLEAR ((CLEAR)); BILIRUBIN NEGATIVE; BLOOD NEGATIVE; COLOR YELLOW ((YELLOW)); GLUCOSE (STRIP) NEGATIVE; KETONES NEGATIVE; LEUKOCYTES NEGATIVE; NITRITE NEGATIVE; PROTEIN (STRIP) NEGATIVE; SPECIFIC GRAVITY 1.009 (1.000-1.030); UCUL ADDED? NO; UROBILINOGEN 0.2 MG/DL (0.2-1.0)
[2018-02-27 06:57] LABS: AMPHETAMINE NEGATIVE (500 ng/mL); BARBITURATES NEGATIVE (200 ng/mL); BENZODIAZEPINES PRESUMPTIVE POSITIVE (150 ng/mL); BUPRENORPHINE NEGATIVE (10 ng/mL); COCAINE NEGATIVE (150 ng/mL); METHADONE NEGATIVE (200 ng/mL); METHAMPHETAMINE NEGATIVE (500 ng/mL); OPIATES (MORPHINE) NEGATIVE (100 ng/mL); OXYCODONE NEGATIVE (100 ng/mL); PHENCYCLIDINE NEGATIVE (25 ng/mL); PROPOXYPHENE NEGATIVE (300 ng/mL); THC CANNABINOIDS NEGATIVE (50 ng/mL); TRICYCLIC ANTIDEPRESSANTS NEGATIVE (300 ng/mL)
[2018-02-27 08:30] VITALS: BP 130/66
[2018-02-27 08:48] LABS: BENZODIAZEPINES, URINE SCREEN POSITIVE (200 ng/mL)
== END 2018-02-27 08:32 | disposition home or self-care (01) ==
LOC: EME 22:52
PROVIDERS: Emergency Medicine
DX: F10.129 Alcohol abuse with intoxication, unspecified (principal); F32.9 Major depressive disorder, single episode, unspecified; J98.11 Atelectasis; R91.8 Other nonspecific abnormal finding of lung field; I10 Essential (primary) hypertension; G47.33 Obstructive sleep apnea (adult) (pediatric); K70.30 Alcoholic cirrhosis of liver without ascites; Y90.7 Blood alcohol level of 200-239 mg/100 ml; Z87.891 Personal history of nicotine dependence; Z91.02 Food additives allergy status
CPT/HCPCS: 71046; 80053; 81003; 83690; 84999; 85027; 99281; 99285; G0480

== ENCOUNTER 2018-02-28 01:50 | Emergency (ER) | payer OTHER ==
[~2018-02-28] VITALS: Ht 167.6 cm; Wt 106.8 kg
[2018-02-28 07:02] VITALS: BP 141/88
== END 2018-02-28 07:03 | disposition home or self-care (01) ==
LOC: EME 01:50
DX: F10.129 Alcohol abuse with intoxication, unspecified (principal); F32.9 Major depressive disorder, single episode, unspecified
CPT/HCPCS: 99281; 99283

== ENCOUNTER 2018-03-02 23:49 | Emergency (ER) | payer OTHER ==
[~2018-03-02] VITALS: Ht 167.6 cm; Wt 109.2 kg
[2018-03-03 01:15] LABS: HEMATOCRIT 36.7 % (38.0-50.0); HEMOGLOBIN 12.7 G/DL (12.5-16.6); MCH 33.7 PG (29.0-34.0); MCHC 34.6 G/DL (30.0-36.0); MCV 97.3 FL (86-99); PLATELET COUNT 57 K/uL (156-360); RBC DIS.WIDTH-CV 13.9 % (11.8-14.6); RED BLOOD COUNT 3.77 M/uL (4.00-5.50); WHITE BLOOD COUNT 3.7 K/uL (4.1-10.2)
[2018-03-03 01:33] LABS: CHLORIDE 105 MEQ/L (99-109); CREATININE 0.5 MG/DL (0.6-1.3); GFR ESTIMATE (CALCULATED) > 59 mL/min/ (58.99-99999); GLUCOSE 100 mg/dL (70-99); POTASSIUM 3.8 MEQ/L (3.7-5.4); SODIUM 138 MEQ/L (136-147); UREA NITROGEN (BUN) 10 mg/dL (9-23)
[2018-03-03 02:33] LABS: SERUM ETHYL ALCOHOL 290 mg/dL
[2018-03-03 09:19] VITALS: BP 138/74
== END 2018-03-03 09:23 | disposition home or self-care (01) ==
LOC: EME 23:49
PROVIDERS: Emergency Medicine
DX: F10.129 Alcohol abuse with intoxication, unspecified (principal); F32.9 Major depressive disorder, single episode, unspecified; Y90.8 Blood alcohol level of 240 mg/100 ml or more; I10 Essential (primary) hypertension; Z86.73 Personal history of transient ischemic attack (TIA), and cerebral infarction without residual deficits
CPT/HCPCS: 80048; 81003; 85027; 99281; 99283; G0480

== ENCOUNTER 2018-03-09 22:29 | Emergency (ER) | payer OTHER ==
[~2018-03-09] VITALS: Ht 167.6 cm; Wt 109.9 kg
[2018-03-10 05:33] VITALS: BP 134/77
== END 2018-03-10 05:57 | disposition home or self-care (01) ==
LOC: EME → EDBD 22:29 → EME 22:29
DX: F10.129 Alcohol abuse with intoxication, unspecified (principal); Y90.9 Presence of alcohol in blood, level not specified; F32.9 Major depressive disorder, single episode, unspecified; I10 Essential (primary) hypertension; Z86.73 Personal history of transient ischemic attack (TIA), and cerebral infarction without residual deficits; Z87.19 Personal history of other diseases of the digestive system; Z91.018 Allergy to other foods
CPT/HCPCS: 99281; 99283

== ENCOUNTER 2018-03-10 20:42 | Emergency (ER) | payer OTHER ==
[~2018-03-10] VITALS: Ht 167.6 cm; Wt 109.0 kg
[2018-03-10 22:45] VITALS: BP 115/67
== END 2018-03-10 22:45 | disposition home or self-care (01) ==
LOC: EME 20:42
DX: F10.129 Alcohol abuse with intoxication, unspecified (principal); Y90.9 Presence of alcohol in blood, level not specified; I10 Essential (primary) hypertension; Z86.73 Personal history of transient ischemic attack (TIA), and cerebral infarction without residual deficits; Z87.19 Personal history of other diseases of the digestive system; Z91.018 Allergy to other foods
CPT/HCPCS: 99281; 99285

== ENCOUNTER 2018-03-17 18:48 | Emergency (ER) | payer OTHER ==
[~2018-03-17] VITALS: Ht 167.6 cm; Wt 105.2 kg
[2018-03-18 02:02] VITALS: BP 122/79
== END 2018-03-18 02:02 | disposition home or self-care (01) ==
LOC: EME 18:48
DX: F32.9 Major depressive disorder, single episode, unspecified (principal); F10.129 Alcohol abuse with intoxication, unspecified; Z59.0 Homelessness; I10 Essential (primary) hypertension; Z86.73 Personal history of transient ischemic attack (TIA), and cerebral infarction without residual deficits
CPT/HCPCS: 99281; 99284

== ENCOUNTER 2018-03-20 21:01 | Emergency (ER) | payer OTHER ==
[~2018-03-20] VITALS: Ht 167.6 cm; Wt 104.2 kg
[2018-03-20 21:48] VITALS: BP 134/75
[2018-03-20 22:19] LABS: HEMATOCRIT 38.1 % (38.0-50.0); HEMOGLOBIN 13.2 G/DL (12.5-16.6); MCH 33.3 PG (29.0-34.0); MCHC 34.6 G/DL (30.0-36.0); MCV 96.2 FL (86-99); PLATELET COUNT 51 K/uL (156-360); RBC DIS.WIDTH-CV 14.7 % (11.8-14.6); RBC DIS.WIDTH-SD 51.8 % (39-53); RED BLOOD COUNT 3.96 M/uL (4.00-5.50); WHITE BLOOD COUNT 2.9 K/uL (4.1-10.2)
[2018-03-20 22:26] LABS: ALBUMIN 3.7 g/dL (3.2-4.8)
[2018-03-20 22:27] LABS: CHLORIDE 101 mEq/L (99-109); POTASSIUM 3.9 mEq/L (3.7-5.4); SODIUM 136 mEq/L (136-147)
[2018-03-20 22:29] LABS: GLUCOSE 108 mg/dL (70-99)
[2018-03-20 22:31] LABS: TOTAL BILIRUBIN 2.4 mg/dL (0.0-1.0)
[2018-03-20 22:32] LABS: ALKALINE PHOSPHATASE 138 IU/L (3-129)
[2018-03-20 22:33] LABS: CREATININE 0.7 mg/dL (0.6-1.3); GFR ESTIMATE (CALCULATED) > 59 mL/min/ (58.99-99999)
[2018-03-20 22:34] LABS: AST (GOT) 133 IU/L (2-34); UREA NITROGEN (BUN) 5 mg/dL (9-23)
[2018-03-20 22:35] LABS: ALT (GPT) 50 IU/L (3-49)
[2018-03-20 22:36] LABS: LIPASE 115 U/L (1.0-51.0)
== END 2018-03-20 23:17 | disposition home or self-care (01) ==
LOC: RME 21:01 → EME 21:01 → RME 23:17
PROVIDERS: Nurse Practitioner Acute Care
DX: R10.30 Lower abdominal pain, unspecified (principal); G89.29 Other chronic pain; I10 Essential (primary) hypertension; Z86.73 Personal history of transient ischemic attack (TIA), and cerebral infarction without residual deficits; Z91.02 Food additives allergy status
CPT/HCPCS: 80053; 81003; 83690; 85027; 99281; 99284

== ENCOUNTER 2018-05-14 12:15 | Inpatient (IN) | payer OTHER ==
[~2018-05-14] VITALS: Ht 167.6 cm; Wt 76.7 kg
[2018-05-14 15:02] LABS: BASOPHIL (%) 0.6 % (0-1); EOSINOPHIL (%) 1.4 % (0-5); EOSINOPHIL COUNT 0.1 K/uL (0-0.3); HEMATOCRIT 37.9 % (38.0-50.0); HEMOGLOBIN 13.2 G/DL (12.5-16.6); IMMATURE GRANULOCYTE (%) 0.6 % (0.0-0.7); LYMPHOCYTE (%) 26.8 % (15-42); MCH 36.8 PG (29.0-34.0); MCHC 34.8 G/DL (30.0-36.0); MCV 105.6 FL (86-99); MONOCYTE (%) 10.5 % (3-12); MONOCYTE COUNT 0.4 K/uL (0-0.8); NEUTROPHIL (%) 60.1 % (45-76); NEUTROPHIL COUNT 2.1 K/uL (1.8-6.4); RBC DIS.WIDTH-CV 18.4 % (11.8-14.6); RBC DIS.WIDTH-SD 71.9 % (39-53); RED BLOOD COUNT 3.59 M/uL (4.00-5.50); WHITE BLOOD COUNT 3.5 K/uL (4.1-10.2)
[2018-05-14 15:08] LABS: ALBUMIN 3.2 g/dL (3.2-4.8); CHLORIDE 98 mEq/L (99-109); POTASSIUM 3.8 mEq/L (3.7-5.4); SODIUM 134 mEq/L (136-147)
[2018-05-14 15:11] LABS: GLUCOSE 106 mg/dL (70-99); TOTAL PROTEIN 7.9 g/dL (6.4-8.3)
[2018-05-14 15:13] LABS: TOTAL BILIRUBIN 4.9 mg/dL (0.0-1.0)
[2018-05-14 15:14] LABS: ALKALINE PHOSPHATASE 96 IU/L (3-129); CREATININE 0.7 mg/dL (0.6-1.3); GFR ESTIMATE (CALCULATED) > 59 mL/min/ (58.99-99999); SERUM ETHYL ALCOHOL 326 mg/dL
[2018-05-14 15:16] LABS: AST (GOT) 242 IU/L (2-34); UREA NITROGEN (BUN) 3 mg/dL (9-23)
[2018-05-14 15:17] LABS: ALT (GPT) 77 IU/L (3-49)
[2018-05-14 15:55] LABS: APPEARANCE CLEAR ((CLEAR)); BILIRUBIN NEGATIVE; BLOOD NEGATIVE; COLOR YELLOW ((YELLOW)); GLUCOSE (STRIP) NEGATIVE; KETONES NEGATIVE; LEUKOCYTES NEGATIVE; NITRITE NEGATIVE; PROTEIN (STRIP) NEGATIVE; SPECIFIC GRAVITY 1.006 (1.000-1.030); UCUL ADDED? NO
[2018-05-14 16:06] LABS: AMPHETAMINE NEGATIVE (500 ng/mL); BARBITURATES NEGATIVE (200 ng/mL); BENZODIAZEPINES NEGATIVE (150 ng/mL); BUPRENORPHINE NEGATIVE (10 ng/mL); COCAINE NEGATIVE (150 ng/mL); METHADONE NEGATIVE (200 ng/mL); METHAMPHETAMINE NEGATIVE (500 ng/mL); OPIATES (MORPHINE) NEGATIVE (100 ng/mL); OXYCODONE NEGATIVE (100 ng/mL); PHENCYCLIDINE NEGATIVE (25 ng/mL); PROPOXYPHENE NEGATIVE (300 ng/mL); THC CANNABINOIDS NEGATIVE (50 ng/mL); TRICYCLIC ANTIDEPRESSANTS NEGATIVE (300 ng/mL)
[2018-05-14 16:14] LABS: PLAT.SUFFICIENCY VERY DECREASED; PLATELET COUNT 51 K/uL (156-360)
[2018-05-14 18:59] LABS: MAGNESIUM 1.6 mg/dL (1.3-2.7)
[2018-05-14 19:53] VITALS: BP 137/75
[2018-05-14 23:53] VITALS: BP 131/67
[2018-05-15 03:37] VITALS: BP 153/82
[2018-05-15 05:50] LABS: HEMATOCRIT 34.5 % (38.0-50.0); HEMOGLOBIN 11.5 G/DL (12.5-16.6); MCH 35.7 PG (29.0-34.0); MCHC 33.3 G/DL (30.0-36.0); MCV 107.1 FL (86-99); RBC DIS.WIDTH-CV 18.6 % (11.8-14.6); RBC DIS.WIDTH-SD 73.9 % (39-53); RED BLOOD COUNT 3.22 M/uL (4.00-5.50); WHITE BLOOD COUNT 2.4 K/uL (4.1-10.2)
[2018-05-15 06:20] LABS: CHLORIDE 102 MEQ/L (99-109); CREATININE 0.5 MG/DL (0.6-1.3); GFR ESTIMATE (CALCULATED) > 59 mL/min/ (58.99-99999); GLUCOSE 88 mg/dL (70-99); POTASSIUM 3.5 MEQ/L (3.7-5.4); SODIUM 138 MEQ/L (136-147); UREA NITROGEN (BUN) 3 mg/dL (9-23)
[2018-05-15 06:44] LABS: PLAT.SUFFICIENCY VERY DECREASED
[2018-05-15 07:22] LABS: PLATELET COUNT 41 K/uL (156-360)
[2018-05-15 08:08] VITALS: BP 146/91
[2018-05-15 10:43] VITALS: BP 138/82
[2018-05-15 11:19] VITALS: BP 134/84
[2018-05-15 15:57] VITALS: BP 159/89
[2018-05-15 20:39] VITALS: BP 164/94
[2018-05-16 00:15] VITALS: BP 162/85
[2018-05-16 04:12] VITALS: BP 151/86
[2018-05-16 07:51] LABS: HEMATOCRIT 33.2 % (38.0-50.0); HEMOGLOBIN 11.5 G/DL (12.5-16.6); MCH 37.1 PG (29.0-34.0); MCHC 34.6 G/DL (30.0-36.0); MCV 107.1 FL (86-99); RBC DIS.WIDTH-CV 17.4 % (11.8-14.6); WHITE BLOOD COUNT 3.2 K/uL (4.1-10.2)
[2018-05-16 07:57] VITALS: BP 142/71
[2018-05-16 08:26] LABS: IMM.PLATELET FRACTION 3.4 (1-7); PLAT.SUFFICIENCY DECREASED; PLATELET COUNT 43 K/uL (156-360)
[2018-05-16 08:30] LABS: CHLORIDE 98 MEQ/L (99-109); CREATININE 0.5 MG/DL (0.6-1.3); GFR ESTIMATE (CALCULATED) > 59 mL/min/ (58.99-99999); POTASSIUM 3.7 MEQ/L (3.7-5.4); SODIUM 133 MEQ/L (136-147); UREA NITROGEN (BUN) 8 mg/dL (9-23)
[2018-05-16 08:35] LABS: GLUCOSE 148 mg/dL (70-99)
[2018-05-16 12:44] LABS: INTER. NORMALIZED RATIO 2.6
[2018-05-16 12:47] LABS: PTT 32.4 SEC (25-37)
[2018-05-16 15:29] VITALS: BP 122/69
[2018-05-17] VITALS: BP 136/70
[2018-05-17 00:21] VITALS: BP 135/81
[2018-05-17 07:19] LABS: HEMATOCRIT 35.7 % (38.0-50.0); MCH 37.4 PG (29.0-34.0); MCHC 33.6 G/DL (30.0-36.0); RBC DIS.WIDTH-CV 18.2 % (11.8-14.6); RBC DIS.WIDTH-SD 75.3 % (39-53); RED BLOOD COUNT 3.21 M/uL (4.00-5.50); WHITE BLOOD COUNT 3.3 K/uL (4.1-10.2)
[2018-05-17 07:35] LABS: MCV 111.2 FL (86-99)
[2018-05-17 07:37] LABS: IMM.PLATELET FRACTION 2.6 (1-7); PLAT.SUFFICIENCY DECREASED; PLATELET COUNT 43 K/uL (156-360)
[2018-05-17 08:03] VITALS: BP 162/89
[2018-05-17 15:26] VITALS: BP 118/59
[2018-05-18] VITALS: BP 136/70
[2018-05-18 08:02] VITALS: BP 163/85
[2018-05-18 16:18] VITALS: BP 146/89
[2018-05-19 00:22] VITALS: BP 160/89
[2018-05-19 07:52] VITALS: BP 134/80
[2018-05-19 09:23] LABS: HEMATOCRIT 38.9 % (38.0-50.0); HEMOGLOBIN 12.9 G/DL (12.5-16.6); MCH 37.2 PG (29.0-34.0); MCHC 33.2 G/DL (30.0-36.0); MCV 112.1 FL (86-99); RBC DIS.WIDTH-CV 17.9 % (11.8-14.6); RBC DIS.WIDTH-SD 74.1 % (39-53); RED BLOOD COUNT 3.47 M/uL (4.00-5.50); WHITE BLOOD COUNT 2.9 K/uL (4.1-10.2)
[2018-05-19 09:28] LABS: PLATELET COUNT 59 K/uL (156-360)
[2018-05-19 09:46] LABS: ALBUMIN 2.8 G/DL (3.2-4.8); ALKALINE PHOSPHATASE 67 IU/L (3-129); ALT (GPT) 41 IU/L (3-49); AST (GOT) 76 IU/L (2-34); CHLORIDE 99 MEQ/L (99-109); CREATININE 0.6 MG/DL (0.6-1.3); GFR ESTIMATE (CALCULATED) > 59 mL/min/ (58.99-99999); GLUCOSE 163 mg/dL (70-99); SODIUM 134 MEQ/L (136-147); TOTAL BILIRUBIN 4.4 MG/DL (0.0-1.0); TOTAL PROTEIN 6.7 G/DL (6.4-8.3); UREA NITROGEN (BUN) 9 mg/dL (9-23)
[2018-05-19 09:49] LABS: INTER. NORMALIZED RATIO 2.4
[2018-05-19 16:01] VITALS: BP 135/84
[2018-05-19 23:54] VITALS: BP 139/72
[2018-05-20 07:08] LABS: BASOPHIL (%) 0.9 % (0-1); EOSINOPHIL (%) 2.7 % (0-5); EOSINOPHIL COUNT 0.1 K/uL (0-0.3); HEMATOCRIT 37.5 % (38.0-50.0); HEMOGLOBIN 12.5 G/DL (12.5-16.6); IMMATURE GRANULOCYTE (%) 1.5 % (0.0-0.7); LYMPHOCYTE (%) 24.6 % (15-42); LYMPHOCYTE COUNT 0.8 K/uL (1.0-2.8); MCH 36.9 PG (29.0-34.0); MCHC 33.3 G/DL (30.0-36.0); MCV 110.6 FL (86-99); MONOCYTE (%) 11.7 % (3-12); MONOCYTE COUNT 0.4 K/uL (0-0.8); NEUTROPHIL (%) 58.6 % (45-76); PLATELET COUNT 53 K/uL (156-360); RBC DIS.WIDTH-CV 17.6 % (11.8-14.6); RBC DIS.WIDTH-SD 72.5 % (39-53); RED BLOOD COUNT 3.39 M/uL (4.00-5.50); WHITE BLOOD COUNT 3.3 K/uL (4.1-10.2)
[2018-05-20 07:10] LABS: CHLORIDE 98 MEQ/L (99-109); CREATININE 0.7 MG/DL (0.6-1.3); GFR ESTIMATE (CALCULATED) > 59 mL/min/ (58.99-99999); POTASSIUM 3.9 MEQ/L (3.7-5.4); SODIUM 135 MEQ/L (136-147); UREA NITROGEN (BUN) 8 mg/dL (9-23)
[2018-05-20 07:12] LABS: GLUCOSE 91 mg/dL (70-99)
[2018-05-20 08:17] VITALS: BP 169/94
[2018-05-20 16:38] VITALS: BP 166/94
[2018-05-20 23:51] VITALS: BP 134/75
[2018-05-21 08:07] VITALS: BP 137/80
[2018-05-21] MEDS ORDERED: CHEWABLE-VITE1 EACH PO (11:45)
[2018-05-21] MEDS ORDERED: Thiamine,Vitamin B1 PO (11:45)
[2018-05-21] MEDS ORDERED: BUPROPION HCL100 M1 PO (11:45)
[2018-05-21] MEDS ORDERED: AMOX TR-K CLV1 EAC4 PO (11:45)
[2018-05-21] MEDS ORDERED: FOLIC ACID1 MG PO (11:45)
== END 2018-05-21 17:43 | DRG 571 ==
LOC: EME 12:15 → 5SOUTH 16:42 → EDOF 16:42 → ENRESERV 17:59 → 5SOUTH 19:27
PROVIDERS: Emergency Medicine; Hospitalist; Internal Medicine; Physician Assistant Medical; Student in an Organized Health Care Education/Training Program
DX: L03.115 Cellulitis of right lower limb (principal); L89.629 Pressure ulcer of left heel, unspecified stage; L89.619 Pressure ulcer of right heel, unspecified stage; D69.59 Other secondary thrombocytopenia; D68.4 Acquired coagulation factor deficiency; R45.851 Suicidal ideations; I27.20 Pulmonary hypertension, unspecified; K76.6 Portal hypertension; S81.802A Unspecified open wound, left lower leg, initial encounter; S81.801A Unspecified open wound, right lower leg, initial encounter; S91.105A Unspecified open wound of left lesser toe(s) without damage to nail, initial encounter; B87.1 Wound myiasis; K70.30 Alcoholic cirrhosis of liver without ascites; F32.9 Major depressive disorder, single episode, unspecified; E87.6 Hypokalemia; L76.21 Postprocedural hemorrhage of skin and subcutaneous tissue following a dermatologic procedure; Y83.8 Other surgical procedures as the cause of abnormal reaction of the patient, or of later complication, without mention of misadventure at the time of the procedure; F10.229 Alcohol dependence with intoxication, unspecified; I10 Essential (primary) hypertension; G47.33 Obstructive sleep apnea (adult) (pediatric); Y90.8 Blood alcohol level of 240 mg/100 ml or more; Z59.0 Homelessness; Z91.14 Patient's other noncompliance with medication regimen; Z91.19 Patient's noncompliance with other medical treatment and regimen; Z86.14 Personal history of Methicillin resistant Staphylococcus aureus infection; Z86.73 Personal history of transient ischemic attack (TIA), and cerebral infarction without residual deficits; Z87.891 Personal history of nicotine dependence
CPT/HCPCS: 80048; 80053; 80202; 81003; 83605; 83735; 85025; 85027; 85610; 85670 90; 85730; 87040; 87070; 87075; 87205; 88305; 93005; 94760; 94799; 97530 GO; 99281; 99285; A6260; G0480; J0131; J0295; J0330; J1100; J1170; J2543; J3010; J3370; J7030; J7050; S0020

== ENCOUNTER 2018-06-07 13:11 | Emergency (ER) | payer OTHER ==
[~2018-06-07] VITALS: Ht 167.6 cm; Wt 94.0 kg
[~2018-06-07 13:11] MED LIST changes: +AMOX TR-K CLV1 EAC4 PO; +BUPROPION HCL100 M1 PO; +CHEWABLE-VITE1 EACH PO
[2018-06-07 15:45] VITALS: BP 103/52
== END 2018-06-07 15:45 | disposition home or self-care (01) ==
LOC: EME 13:11
DX: F10.129 Alcohol abuse with intoxication, unspecified (principal); M79.672 Pain in left foot; M79.671 Pain in right foot; I10 Essential (primary) hypertension; F32.9 Major depressive disorder, single episode, unspecified; Z86.73 Personal history of transient ischemic attack (TIA), and cerebral infarction without residual deficits; Z87.19 Personal history of other diseases of the digestive system; Z91.02 Food additives allergy status
CPT/HCPCS: 99281; 99284

== ENCOUNTER 2018-06-08 13:43 | Emergency (ER) | payer OTHER ==
[~2018-06-08] VITALS: Ht 167.6 cm; Wt 90.7 kg
[2018-06-08 15:00] VITALS: BP 118/62
== END 2018-06-08 15:01 | disposition home or self-care (01) ==
LOC: EME 13:43
DX: F10.129 Alcohol abuse with intoxication, unspecified (principal); M25.571 Pain in right ankle and joints of right foot; M25.572 Pain in left ankle and joints of left foot; Z86.73 Personal history of transient ischemic attack (TIA), and cerebral infarction without residual deficits
CPT/HCPCS: 99281; 99283

== ENCOUNTER 2018-06-08 20:00 | Emergency (ER) | payer OTHER ==
[~2018-06-08] VITALS: Ht 167.6 cm; Wt 90.5 kg
[2018-06-09 01:35] VITALS: BP 112/68
== END 2018-06-09 01:36 | disposition home or self-care (01) ==
LOC: EME 20:00
PROVIDERS: Emergency Medicine
DX: F10.129 Alcohol abuse with intoxication, unspecified (principal); Y90.9 Presence of alcohol in blood, level not specified; Z91.018 Allergy to other foods
CPT/HCPCS: 82948; 99281; 99284

== ENCOUNTER 2018-06-13 20:37 | Emergency (ER) | payer OTHER ==
[~2018-06-13] VITALS: Ht 167.6 cm; Wt 98.8 kg
[2018-06-14 00:23] LABS: HEMATOCRIT 36.9 % (38.0-50.0); HEMOGLOBIN 13.1 G/DL (12.5-16.6); MCH 37.1 PG (29.0-34.0); MCHC 35.5 G/DL (30.0-36.0); MCV 104.5 FL (86-99); PLATELET COUNT 65 K/uL (156-360); RBC DIS.WIDTH-CV 13.3 % (11.8-14.6); RBC DIS.WIDTH-SD 50.8 % (39-53); RED BLOOD COUNT 3.53 M/uL (4.00-5.50); WHITE BLOOD COUNT 4.1 K/uL (4.1-10.2)
[2018-06-14 00:29] LABS: ALBUMIN 3.2 g/dL (3.2-4.8); CHLORIDE 100 mEq/L (99-109); POTASSIUM 3.5 mEq/L (3.7-5.4); SODIUM 135 mEq/L (136-147)
[2018-06-14 00:32] LABS: GLUCOSE 92 mg/dL (70-99); TOTAL PROTEIN 7.5 g/dL (6.4-8.3)
[2018-06-14 00:33] LABS: TOTAL BILIRUBIN 2.6 mg/dL (0.0-1.0)
[2018-06-14 00:35] LABS: ALKALINE PHOSPHATASE 79 IU/L (3-129); CREATININE 0.6 mg/dL (0.6-1.3); GFR ESTIMATE (CALCULATED) > 59 mL/min/ (58.99-99999)
[2018-06-14 00:36] LABS: UREA NITROGEN (BUN) 4 mg/dL (9-23)
[2018-06-14 00:37] LABS: AST (GOT) 121 IU/L (2-34); DIRECT BILIRUBIN 1.4 mg/dL (0.0-0.3)
[2018-06-14 00:38] LABS: ALT (GPT) 55 IU/L (3-49)
[2018-06-14 00:39] LABS: LIPASE 49 U/L (1.0-51.0)
[2018-06-14 01:47] LABS: APPEARANCE CLEAR ((CLEAR)); BILIRUBIN NEGATIVE; BLOOD NEGATIVE; COLOR YELLOW ((YELLOW)); GLUCOSE (STRIP) NEGATIVE; KETONES NEGATIVE; LEUKOCYTES NEGATIVE; NITRITE NEGATIVE; PROTEIN (STRIP) NEGATIVE; SPECIFIC GRAVITY 1.004 (1.000-1.030)
[2018-06-14 02:38] VITALS: BP 116/74
== END 2018-06-14 02:39 | disposition home or self-care (01) ==
LOC: EME 20:37
PROVIDERS: Physician Assistant
DX: F10.129 Alcohol abuse with intoxication, unspecified (principal); K70.30 Alcoholic cirrhosis of liver without ascites; G89.29 Other chronic pain; R10.30 Lower abdominal pain, unspecified; D69.6 Thrombocytopenia, unspecified; Z91.19 Patient's noncompliance with other medical treatment and regimen; Z59.0 Homelessness; Z86.73 Personal history of transient ischemic attack (TIA), and cerebral infarction without residual deficits; K42.9 Umbilical hernia without obstruction or gangrene
CPT/HCPCS: 80048; 80076; 81003; 82140; 83690; 85027; 99281; 99283

== ENCOUNTER 2018-06-14 21:28 | Emergency (ER) | payer OTHER ==
[~2018-06-14] VITALS: Ht 167.6 cm; Wt 98.8 kg
[2018-06-14 22:45] LABS: HEMATOCRIT 33.8 % (38.0-50.0); HEMOGLOBIN 11.9 G/DL (12.5-16.6); MCH 36.8 PG (29.0-34.0); MCHC 35.2 G/DL (30.0-36.0); MCV 104.6 FL (86-99); PLATELET COUNT 62 K/uL (156-360); RBC DIS.WIDTH-CV 13.2 % (11.8-14.6); RBC DIS.WIDTH-SD 50.5 % (39-53); RED BLOOD COUNT 3.23 M/uL (4.00-5.50); WHITE BLOOD COUNT 4.3 K/uL (4.1-10.2)
[2018-06-14 22:59] LABS: ALBUMIN 2.9 g/dL (3.2-4.8); CHLORIDE 104 mEq/L (99-109); POTASSIUM 3.6 mEq/L (3.7-5.4); SODIUM 136 mEq/L (136-147)
[2018-06-14 23:02] LABS: GLUCOSE 99 mg/dL (70-99); TOTAL PROTEIN 6.6 g/dL (6.4-8.3)
[2018-06-14 23:05] LABS: SERUM ETHYL ALCOHOL 336 mg/dL
[2018-06-14 23:06] LABS: CREATININE 0.7 mg/dL (0.6-1.3); GFR ESTIMATE (CALCULATED) > 59 mL/min/ (58.99-99999)
[2018-06-14 23:07] LABS: AST (GOT) 111 IU/L (2-34); UREA NITROGEN (BUN) 5 mg/dL (9-23)
[2018-06-14 23:08] LABS: ALT (GPT) 51 IU/L (3-49)
[2018-06-14 23:09] LABS: LIPASE 86 U/L (1.0-51.0); TOTAL CK 1064 IU/L (1-294)
[2018-06-14 23:15] LABS: CK-MB 5.4 ng/mL (0.0-4.9); CKMB RELATIVE INDEX 0.5 (0.0-3.9)
[2018-06-14 23:29] LABS: ALKALINE PHOSPHATASE 149 IU/L (3-129)
[2018-06-14 23:30] LABS: CREATINE KINASE 1064 IU/L (1-294)
[2018-06-15 03:43] LABS: CREATINE KINASE 864 IU/L (1-294); TOTAL CK 864 IU/L (1-294)
[2018-06-15 03:52] LABS: CK-MB 5.3 ng/mL (0.0-4.9); CKMB RELATIVE INDEX 0.6 (0.0-3.9)
[2018-06-15 06:52] VITALS: BP 113/70
== END 2018-06-15 06:53 | disposition home or self-care (01) ==
LOC: EME → EDBD 21:28 → EME 06-15 06:53
PROVIDERS: Emergency Medicine
DX: F10.129 Alcohol abuse with intoxication, unspecified (principal); Y90.8 Blood alcohol level of 240 mg/100 ml or more; E86.0 Dehydration; D69.6 Thrombocytopenia, unspecified; K74.60 Unspecified cirrhosis of liver; I10 Essential (primary) hypertension; F32.9 Major depressive disorder, single episode, unspecified; Z86.73 Personal history of transient ischemic attack (TIA), and cerebral infarction without residual deficits
CPT/HCPCS: 80053; 82550; 82553; 83690; 85027; 99281; 99285; G0480; J7030

== ENCOUNTER 2018-06-16 18:16 | Emergency (ER) | payer OTHER ==
[~2018-06-16] VITALS: Ht 167.6 cm; Wt 94.0 kg
[2018-06-16 19:52] LABS: BASOPHIL (%) 0.5 % (0-1); EOSINOPHIL (%) 3.3 % (0-5); EOSINOPHIL COUNT 0.1 K/uL (0-0.3); HEMATOCRIT 34.9 % (38.0-50.0); HEMOGLOBIN 12.3 G/DL (12.5-16.6); IMMATURE GRANULOCYTE (%) 0.3 % (0.0-0.7); LYMPHOCYTE COUNT 1.9 K/uL (1.0-2.8); MCH 36.9 PG (29.0-34.0); MCHC 35.2 G/DL (30.0-36.0); MCV 104.8 FL (86-99); MONOCYTE (%) 7.9 % (3-12); MONOCYTE COUNT 0.3 K/uL (0-0.8); NEUTROPHIL COUNT 1.4 K/uL (1.8-6.4); PLATELET COUNT 64 K/uL (156-360); RBC DIS.WIDTH-CV 13.2 % (11.8-14.6); RBC DIS.WIDTH-SD 50.8 % (39-53); RED BLOOD COUNT 3.33 M/uL (4.00-5.50); WHITE BLOOD COUNT 3.7 K/uL (4.1-10.2)
[2018-06-16 20:04] LABS: ALBUMIN 3.1 g/dL (3.2-4.8); CHLORIDE 107 mEq/L (99-109); POTASSIUM 3.6 mEq/L (3.7-5.4); SODIUM 140 mEq/L (136-147)
[2018-06-16 20:07] LABS: GLUCOSE 94 mg/dL (70-99); TOTAL PROTEIN 7.2 g/dL (6.4-8.3)
[2018-06-16 20:09] LABS: TOTAL BILIRUBIN 2.4 mg/dL (0.0-1.0)
[2018-06-16 20:10] LABS: SERUM ETHYL ALCOHOL 337 mg/dL
[2018-06-16 20:11] LABS: CREATININE 0.6 mg/dL (0.6-1.3); GFR ESTIMATE (CALCULATED) > 59 mL/min/ (58.99-99999)
[2018-06-16 20:12] LABS: AST (GOT) 111 IU/L (2-34); DIRECT BILIRUBIN 1.3 mg/dL (0.0-0.3); UREA NITROGEN (BUN) 3 mg/dL (9-23)
[2018-06-16 20:14] LABS: ALT (GPT) 50 IU/L (3-49); LIPASE 79 U/L (1.0-51.0)
[2018-06-16 20:15] LABS: ALKALINE PHOSPHATASE 97 IU/L (3-129)
[2018-06-16 20:20] LABS: TROP-I INTERPRETATION NEGATIVE; TROPONIN-I 0.01 ng/mL (0.0-0.30)
[2018-06-17 00:26] LABS: TROP-I INTERPRETATION NEGATIVE; TROPONIN-I 0.01 ng/mL (0.0-0.30)
[2018-06-17] MEDS ORDERED: KEFLEX500 MG PO (03:15)
[2018-06-17 04:08] VITALS: BP 144/74
== END 2018-06-17 04:11 | disposition home or self-care (01) ==
LOC: EME 18:16
PROVIDERS: Emergency Medicine
DX: M76.62 Achilles tendinitis, left leg (principal); R07.89 Other chest pain; I10 Essential (primary) hypertension; F32.9 Major depressive disorder, single episode, unspecified; Z86.73 Personal history of transient ischemic attack (TIA), and cerebral infarction without residual deficits
CPT/HCPCS: 71045; 73610; 80048; 80076; 83690; 84484; 85025; 93005; 99281; 99285; G0480

== ENCOUNTER 2018-06-19 21:51 | Inpatient (IN) | payer OTHER ==
[~2018-06-19] VITALS: Ht 172.7 cm; Wt 93.5 kg
[2018-06-19 23:15] LABS: HEMATOCRIT 34.8 % (38.0-50.0); HEMOGLOBIN 12.4 G/DL (12.5-16.6); MCH 37.2 PG (29.0-34.0); MCHC 35.6 G/DL (30.0-36.0); MCV 104.5 FL (86-99); PLATELET COUNT 58 K/uL (156-360); RBC DIS.WIDTH-CV 13.5 % (11.8-14.6); RBC DIS.WIDTH-SD 51.5 % (39-53); RED BLOOD COUNT 3.33 M/uL (4.00-5.50); WHITE BLOOD COUNT 3.7 K/uL (4.1-10.2)
[2018-06-19 23:27] LABS: ALBUMIN 3.1 g/dL (3.2-4.8); CHLORIDE 102 mEq/L (99-109); POTASSIUM 3.4 mEq/L (3.7-5.4); SODIUM 138 mEq/L (136-147)
[2018-06-19 23:29] LABS: GLUCOSE 94 mg/dL (70-99); TOTAL PROTEIN 7.2 g/dL (6.4-8.3)
[2018-06-19 23:31] LABS: TOTAL BILIRUBIN 2.5 mg/dL (0.0-1.0)
[2018-06-19 23:32] LABS: SERUM ETHYL ALCOHOL 303 mg/dL
[2018-06-19 23:33] LABS: ALKALINE PHOSPHATASE 91 IU/L (3-129); CREATININE 0.7 mg/dL (0.6-1.3); GFR ESTIMATE (CALCULATED) > 59 mL/min/ (58.99-99999)
[2018-06-19 23:34] LABS: AST (GOT) 139 IU/L (2-34); UREA NITROGEN (BUN) 7 mg/dL (9-23)
[2018-06-19 23:36] LABS: ALT (GPT) 53 IU/L (3-49)
[2018-06-20 01:08] LABS: APPEARANCE CLEAR ((CLEAR)); BILIRUBIN NEGATIVE; BLOOD NEGATIVE; COLOR YELLOW ((YELLOW)); GLUCOSE (STRIP) NEGATIVE; KETONES NEGATIVE; LEUKOCYTES NEGATIVE; NITRITE NEGATIVE; PROTEIN (STRIP) NEGATIVE; SPECIFIC GRAVITY 1.005 (1.000-1.030); UCUL ADDED? NO
[2018-06-20 01:50] LABS: AMPHETAMINE NEGATIVE (500 ng/mL); BARBITURATES NEGATIVE (200 ng/mL); BENZODIAZEPINES NEGATIVE (150 ng/mL); BUPRENORPHINE NEGATIVE (10 ng/mL); COCAINE NEGATIVE (150 ng/mL); METHADONE NEGATIVE (200 ng/mL); METHAMPHETAMINE NEGATIVE (500 ng/mL); OPIATES (MORPHINE) NEGATIVE (100 ng/mL); OXYCODONE NEGATIVE (100 ng/mL); PHENCYCLIDINE NEGATIVE (25 ng/mL); PROPOXYPHENE NEGATIVE (300 ng/mL); THC CANNABINOIDS NEGATIVE (50 ng/mL); TRICYCLIC ANTIDEPRESSANTS NEGATIVE (300 ng/mL)
[2018-06-20 13:56] VITALS: BP 159/86
[2018-06-20 14:06] VITALS: BP 159/86
[2018-06-20 16:18] VITALS: BP 166/85
[2018-06-21 09:10] VITALS: BP 167/94
[2018-06-21 16:50] VITALS: BP 183/94
[2018-06-22 08:19] VITALS: BP 157/95
[2018-06-22 15:40] VITALS: BP 150/93
[2018-06-23 07:59] VITALS: BP 158/89
[2018-06-23 17:13] VITALS: BP 171/92
[2018-06-24 07:41] VITALS: BP 159/78
[2018-06-24 16:50] VITALS: BP 132/60
[2018-06-25 07:51] VITALS: BP 158/86
[2018-06-25 16:29] VITALS: BP 134/74
[2018-06-26 08:08] VITALS: BP 153/94
[2018-06-26 16:02] VITALS: BP 140/83
[2018-06-27 07:36] VITALS: BP 178/95
[2018-06-27 16:30] VITALS: BP 147/75
[2018-06-28 07:48] VITALS: BP 150/87
[2018-06-28] MEDS ORDERED: ESCITALOPRAM OX10 MG PO (10:25)
[2018-07-02] MEDS ORDERED: KEFLEX500 MG PO (13:40)
[2018-07-02] MEDS ORDERED: BUPROPION HCL100 M1 PO (13:40)
== END 2018-06-28 14:15 | disposition home or self-care (01) | DRG 885 ==
LOC: EME 21:51 → 1WEST 06-20 13:04 → EDOF 06-20 13:04 → 1WEST 06-20 13:04 → ENRESERV 06-20 13:39 → 1WEST 06-20 13:40
PROVIDERS: Emergency Medicine
PROC: HZ2ZZZZ Detoxification Services for Substance Abuse Treatment (ICD-10-PCS; principal; 2018-06-20)
DX: F33.2 Major depressive disorder, recurrent severe without psychotic features (principal); R45.851 Suicidal ideations; F10.229 Alcohol dependence with intoxication, unspecified; Y90.8 Blood alcohol level of 240 mg/100 ml or more; I10 Essential (primary) hypertension; K70.30 Alcoholic cirrhosis of liver without ascites; K76.6 Portal hypertension; D61.818 Other pancytopenia; I27.20 Pulmonary hypertension, unspecified; G47.33 Obstructive sleep apnea (adult) (pediatric); L03.116 Cellulitis of left lower limb; L03.115 Cellulitis of right lower limb; S91.002A Unspecified open wound, left ankle, initial encounter; S91.001A Unspecified open wound, right ankle, initial encounter; X58.XXXA Exposure to other specified factors, initial encounter; E66.9 Obesity, unspecified; Z86.73 Personal history of transient ischemic attack (TIA), and cerebral infarction without residual deficits; Z59.0 Homelessness; Z91.19 Patient's noncompliance with other medical treatment and regimen; Z91.5 Personal history of self-harm; Z87.891 Personal history of nicotine dependence; Z68.32 Body mass index [BMI] 32.0-32.9, adult; Z86.14 Personal history of Methicillin resistant Staphylococcus aureus infection
CPT/HCPCS: 80053; 81003; 85027; 90837; 97150 GO; 97165 GO; 99281; 99285; A6260; G0480

== ENCOUNTER 2018-06-28 22:24 | Emergency (ER) | payer OTHER ==
[~2018-06-28] VITALS: Ht 167.6 cm; Wt 92.2 kg
[2018-06-28 23:46] LABS: HEMATOCRIT 36.4 % (38.0-50.0); HEMOGLOBIN 12.9 G/DL (12.5-16.6); MCH 36.8 PG (29.0-34.0); MCHC 35.4 G/DL (30.0-36.0); MCV 103.7 FL (86-99); PLATELET COUNT 74 K/uL (156-360); RBC DIS.WIDTH-CV 13.6 % (11.8-14.6); RBC DIS.WIDTH-SD 52.3 % (39-53); RED BLOOD COUNT 3.51 M/uL (4.00-5.50); WHITE BLOOD COUNT 4.1 K/uL (4.1-10.2)
[2018-06-29 00:10] LABS: CHLORIDE 101 mEq/L (99-109); POTASSIUM 3.5 mEq/L (3.7-5.4); SODIUM 132 mEq/L (136-147)
[2018-06-29 00:12] LABS: GLUCOSE 82 mg/dL (70-99)
[2018-06-29 00:15] LABS: CREATININE 0.7 mg/dL (0.6-1.3); GFR ESTIMATE (CALCULATED) > 59 mL/min/ (58.99-99999); SERUM ETHYL ALCOHOL 177 mg/dL
[2018-06-29 00:16] LABS: UREA NITROGEN (BUN) 7 mg/dL (9-23)
[2018-06-29 05:49] VITALS: BP 113/66
== END 2018-06-29 05:50 | disposition home or self-care (01) ==
LOC: EME → EDBD 22:24 → EME 22:24
DX: R45.851 Suicidal ideations (principal); F10.129 Alcohol abuse with intoxication, unspecified; Y90.6 Blood alcohol level of 120-199 mg/100 ml; I10 Essential (primary) hypertension; Z86.73 Personal history of transient ischemic attack (TIA), and cerebral infarction without residual deficits; Z91.02 Food additives allergy status
CPT/HCPCS: 80048; 85027; 90839; 99281; 99285; G0480

== ENCOUNTER 2018-06-30 21:12 | Emergency (ER) | payer OTHER ==
[~2018-06-30] VITALS: Ht 167.6 cm; Wt 92.7 kg
[2018-06-30 22:20] LABS: HEMATOCRIT 33.6 % (38.0-50.0); HEMOGLOBIN 11.8 G/DL (12.5-16.6); MCH 36.5 PG (29.0-34.0); MCHC 35.1 G/DL (30.0-36.0); PLATELET COUNT 73 K/uL (156-360); RBC DIS.WIDTH-CV 13.6 % (11.8-14.6); RBC DIS.WIDTH-SD 51.9 % (39-53); RED BLOOD COUNT 3.23 M/uL (4.00-5.50)
[2018-06-30 22:30] LABS: CHLORIDE 107 mEq/L (99-109); POTASSIUM 3.4 mEq/L (3.7-5.4); SODIUM 138 mEq/L (136-147)
[2018-06-30 22:34] LABS: GLUCOSE 104 mg/dL (70-99)
[2018-06-30 22:35] LABS: SERUM ETHYL ALCOHOL 272 mg/dL
[2018-06-30 22:36] LABS: CREATININE 0.7 mg/dL (0.6-1.3); GFR ESTIMATE (CALCULATED) > 59 mL/min/ (58.99-99999)
[2018-06-30 22:37] LABS: UREA NITROGEN (BUN) 8 mg/dL (9-23)
[2018-06-30 23:32] LABS: APPEARANCE CLEAR ((CLEAR)); BILIRUBIN NEGATIVE; BLOOD NEGATIVE; COLOR STRAW ((YELLOW)); GLUCOSE (STRIP) NEGATIVE; KETONES NEGATIVE; LEUKOCYTES NEGATIVE; NITRITE NEGATIVE; PROTEIN (STRIP) NEGATIVE; SPECIFIC GRAVITY 1.005 (1.000-1.030); UROBILINOGEN 0.2 MG/DL (0.2-1.0)
[2018-06-30 23:45] LABS: AMPHETAMINE NEGATIVE (500 ng/mL); BARBITURATES NEGATIVE (200 ng/mL); BENZODIAZEPINES PRESUMPTIVE POSITIVE (150 ng/mL); BUPRENORPHINE NEGATIVE (10 ng/mL); COCAINE NEGATIVE (150 ng/mL); METHADONE NEGATIVE (200 ng/mL); METHAMPHETAMINE NEGATIVE (500 ng/mL); OPIATES (MORPHINE) NEGATIVE (100 ng/mL); OXYCODONE NEGATIVE (100 ng/mL); PHENCYCLIDINE NEGATIVE (25 ng/mL); PROPOXYPHENE NEGATIVE (300 ng/mL); THC CANNABINOIDS NEGATIVE (50 ng/mL); TRICYCLIC ANTIDEPRESSANTS NEGATIVE (300 ng/mL)
[2018-07-01 02:28] LABS: BENZODIAZEPINES, URINE SCREEN POSITIVE (200 ng/mL)
[2018-07-01 06:18] VITALS: BP 96/52
[2018-07-02] MEDS ORDERED: KEFLEX500 MG PO (13:40)
[2018-07-02] MEDS ORDERED: BUPROPION HCL100 M1 PO (13:40)
== END 2018-07-01 06:19 | disposition home or self-care (01) ==
LOC: EME → EDBD 21:12 → EME 07-01 06:19
PROVIDERS: Nurse Practitioner Family
DX: F10.129 Alcohol abuse with intoxication, unspecified (principal); F32.9 Major depressive disorder, single episode, unspecified; R45.851 Suicidal ideations; S90.822A Blister (nonthermal), left foot, initial encounter; S90.821A Blister (nonthermal), right foot, initial encounter; Y90.8 Blood alcohol level of 240 mg/100 ml or more; I10 Essential (primary) hypertension; Z86.73 Personal history of transient ischemic attack (TIA), and cerebral infarction without residual deficits
CPT/HCPCS: 80048; 81003; 84999; 85027; 90839; 99281; 99284; G0480